=== PATIENT | female | born 1965 | race African-American/Black ===

== ENCOUNTER 2019-03-05 06:43 | Inpatient (IN) ==
[2019-03-05] MEDS ORDERED: CARDIZEM IV ONE (07:08)
[2019-03-05] MEDS ORDERED: NS 1,000 ML IV ONE ×2 (07:11)
[2019-03-05] MEDS ORDERED: OFIRMEV 1000 MG/ISOTONIC SOLN 1,000 MG/100 ML BOTTLE IV ONE (07:13)
[2019-03-05] MEDS ORDERED: LEVAQUIN 750 MG/D5W 750 MG/150 ML IVPB IV ONE (07:13)
[2019-03-05] MEDS ORDERED: VANCOMYCIN 1 GM/NS 1 GM/250 ML IVPB IV ONE (07:13)
--- NOTE | 2019-03-05 07:19 | PROVIDER DOCUMENTATION ---
HPI-Fever - General Chief Complaint: SEPSIS ALERT - D Stated Complaint: fever Time Seen by Provider: 03/05/19 07:00 Source: EMS, assisted records, old records Unable to obtain history due to:: other (aphasia, [place] patient) Allergies/Adverse Reactions: Patient Allergies Allergy/AdvReac Type Severity Reaction Status Date / Time No Known Allergies Allergy Verified 03/05/19 07:23 - History of Present Illness-Fever Nature of Presenting Problem: Sent from [facility] this morning for decreased LOC from baseline and fever of 105 axillary. She has hx of CVA with aphasia/flexion contractures/afib. Of note her palacio catheter has thick, red, cloudy urine with lots of sediment. Fever Severity/Quality: reports: greater than 102 F Onset/Duration: reports: this morning Timing: reports: still present, constant Severity: reports: moderate Context: reports: decreased mental status, from assisted, indwelling palacio, decubitus ulcers Recent Illness?: reports: none Fever Therapy COMEDIAN: Initiated none Cognitive Baseline: poor alertness (mute d/t CVA) Modifying Factors: improves with: nothing Associated Symptoms: reports: diaphoresis, fever/chills, shortness of breath Similar Symptoms Previously?: No - Glascow Coma Score Best Eye Response (Britni): (3) open to voice Best Verbal Response (Britni): (1) no verbal response Best Motor Response (Britni): (2) extension to pain Britni Total: 7 Review of Systems - Adult - REVIEW OF SYSTEMS - ADULT ROS:: ROS per NN only Constitutional: reports: see HPI, fever Eyes: reports: no symptoms reported Ears, Nose, Mouth & Throat: reports: no symptoms reported Cardiovascular: reports: no symptoms reported Respiratory: reports: see HPI, cough, shortness of breath Gastrointestinal: reports: no symptoms reported Genitourinary: reports: see HPI, frequent UTI's, hematuria Musculoskeletal: reports: no symptoms reported Integumentary: reports: skin sores/ulcer Neurological: reports: no symptoms reported Psychiatric: reports: no symptoms reported Endocrine: reports: no symptoms reported Hematologic/Lymphatic: reports: no symptoms reported Allergic/Immunologic: reports: no symptoms reported All Other Systems: Reviewed and Negative Past History - Adult - PAST MEDICAL HISTORY-ADULT Review of Records: reports: Old Records Reviewed (from [place]), Nursing Assessment Review, Medications Reviewed, Social history reviewed & non-contributory. Major Childhood Illnesses: reports: denies history Cardiovascular: reports: A-Fib, CAD, CHF Respiratory: reports: denies history Gastrointestinal: reports: denies history Obstetrical/Gynecological: reports: denies history Genitourinary: reports: denies history Musculoskeletal: reports: denies history Neurological: reports: cognitive dysfunction, CVA, stroke deficits Endocrine/Immune: reports: denies history Other Conditions: reports: denies history - PRIOR SURGERIES/PROCEDURES Surgical/Procedure History: reports: reviewed, not pertinent - IMMUNIZATION STATUS Childhood Immunizations: UTD Flu Vaccine: NUTD - FAMILY HISTORY Family History: reviewed, not pertinent - SOCIAL HISTORY Smoking: non-smoker Substance Use: none/never Alcohol Use Frequency: never Living Situation: care facility Physical Exam-General - PHYSICAL EXAM-ADULT Initial Vital Signs Reviewed: Yes (Febrile, tachycardic, tachypneic, normotensive) - CONSTITUTIONAL General Appearance: mild distress, lethargic - EYES Eyes: PERRL/EOMI, pink conjunctivae - HEAD, EARS, NOSE, MOUTH & THROAT HENMT: normocephalic/atraumatic. negative: moist mucous membranes - NECK Neck: non-tender, supple, normal inspection, limited range of motion - RESPIRATORY Respiratory: chest non-tender, no pleuratic chest pain, no respiratory distress, no accessory muscle use, rhonchi, increased rate - CARDIOVASCULAR Cardiovascular: no gallop, no JVD, tachycardia, systolic murmur, irregularly irregular, PMI displaced laterally. negative: normal peripheral pulses, regular rate, rhythm, no edema - GASTROINTESTINAL (ABDOMEN) Abdominal Exam: normal bowel sounds, non tender, soft, no organomegaly, no pulsatile mass - GENITOURINARY Female Genitalia/Pelvic Exam: other (indwelling palacio catheter red with sediment) - LYMPHATIC Lymphatic: no adenopathy - MUSCULOSKELETAL Back Exam: decreased range of motion, other (flexion contractures legs/arms) Extremity: pedal edema - SKIN Integumentary: normal color, normal turgor, warm/dry - NEUROLOGIC Neurologic: aphasia, other (head turned right, minimally responsive, increased tone) - PSYCHIATRIC Psych/Mental Status: disoriented x 3 Progress - PLAN OF CARE/RESULTS Progress/Plan/Lab Results: Vital Signs - 8 hr 03/05/19 06:53 03/05/19 06:58 03/05/19 07:00 Temperature 104.3 F H Pulse Rate 172 H 158 H Respiratory Rate 25 H 36 H Blood Pressure 124/98 124/98 O2 Sat by Pulse Oximetry 96 96 03/05/19 07:09 03/05/19 07:15 03/05/19 07:18 Temperature Pulse Rate 163 H 163 H 151 H Respiratory Rate 35 H 35 H 35 H Blood Pressure 102/85 95/70 O2 Sat by Pulse Oximetry 96 96 96 03/05/19 07:29 03/05/19 07:30 03/05/19 07:31 Temperature Pulse Rate 153 H 164 H 132 H Respiratory Rate 35 H 35 H 32 H Blood Pressure 100/57 113/67 O2 Sat by Pulse Oximetry 95 95 95 03/05/19 07:32 03/05/19 07:34 03/05/19 07:38 Temperature Pulse Rate 132 H 126 H 133 H Respiratory Rate 36 H 30 H 24 Blood Pressure 98/72 87/61 107/69 O2 Sat by Pulse Oximetry 95 94 L 92 L 03/05/19 07:43 03/05/19 07:44 03/05/19 07:45 Temperature Pulse Rate 127 H 121 H 115 H Respiratory Rate 33 H 35 H 35 H Blood Pressure 110/57 100/78 O2 Sat by Pulse Oximetry 94 L 94 L 94 L 03/05/19 07:48 03/05/19 07:50 03/05/19 08:00 Temperature Pulse Rate 116 H 120 H 120 H Respiratory Rate 32 H 36 H 31 H Blood Pressure 105/65 95/71 99/68 O2 Sat by Pulse Oximetry 94 L 94 L 95 03/05/19 08:01 03/05/19 08:10 03/05/19 08:15 Temperature Pulse Rate 122 H 111 H 118 H Respiratory Rate 32 H 30 H 29 H Blood Pressure 96/68 O2 Sat by Pulse Oximetry 95 95 95 03/05/19 08:20 03/05/19 08:30 03/05/19 08:31 Temperature Pulse Rate 118 H 118 H 121 H Respiratory Rate 27 H 27 H 27 H Blood Pressure 96/65 98/66 O2 Sat by Pulse Oximetry 95 95 96 03/05/19 08:40 03/05/19 08:45 03/05/19 08:50 Temperature Pulse Rate 125 H Respiratory Rate 28 H 28 H 22 Blood Pressure 98/72 94/82 O2 Sat by Pulse Oximetry 96 96 95 03/05/19 09:00 03/05/19 09:01 03/05/19 09:10 Temperature Pulse Rate Respiratory Rate 26 H 25 H 27 H Blood Pressure 105/69 91/71 O2 Sat by Pulse Oximetry 95 96 96 03/05/19 09:15 03/05/19 09:20 03/05/19 09:30 Temperature Pulse Rate Respiratory Rate 27 H 26 H 27 H Blood Pressure 96/64 98/68 O2 Sat by Pulse Oximetry 96 96 95 03/05/19 09:31 03/05/19 09:40 03/05/19 09:45 Temperature Pulse Rate Respiratory Rate 26 H 26 H 29 H Blood Pressure 107/66 O2 Sat by Pulse Oximetry 96 96 96 03/05/19 09:50 03/05/19 10:00 03/05/19 10:01 Temperature Pulse Rate 130 H 125 H 129 H Respiratory Rate 27 H 27 H 25 H Blood Pressure 99/78 94/56 O2 Sat by Pulse Oximetry 96 96 96 03/05/19 07:16 Influenza Screen - Final Nasopharyngeal Laboratory Results - last 24 hr 03/05/19 03/05/19 03/05/19 06:55 06:55 06:55 WBC 10.69 RBC 4.33 Hgb 13.2 Hct 40.9 MCV 94.5 MCH 30.5 MCHC 32.3 L RDW Std Deviation 14.6 H Plt Count 183 MPV 12.2 H Immature Gran % (Auto) 0.4 Neut % (Auto) 58.9 Lymph % (Auto) 32.5 [place] % (Auto) 7.7 Eos % (Auto) 0.1 Baso % (Auto) 0.4 Immature Gran # (Auto) 0.04 Neut # (Auto) 6.31 Lymph # (Auto) 3.47 H [place] # (Auto) 0.82 H Eos # (Auto) 0.01 Baso # (Auto) 0.04 PT 17.1 H INR 1.37 PTT (Actin FS) 28.4 Sodium 131 L Potassium 4.1 Chloride 92 L Carbon Dioxide 24 L Anion Gap 15 BUN 21 Creatinine 0.6 BUN/Creatinine Ratio 35 Glucose 139 H Calculated Osmolality 268 Calcium 8.5 L Magnesium Total Bilirubin 0.88 AST 62 H ALT 27 Alkaline Phosphatase 112 H Creatine Kinase 69 Troponin T Fkf-A-Qupqituvygn Pept Total Protein 6.6 Albumin 3.0 L Globulin 3.6 Albumin/Globulin Ratio 0.8 Plasma Lactate TSH Urine Source Urine Color Urine Turbidity Urine pH Ur Specific Hendricks Urine Protein Ur Glucose (Stick) Ur Ketones (Stick) Urine Blood Urine Nitrite Urine Bilirubin Urobilinogen Dipstick Urine Leukocytes Urine WBC (Auto) Urine RBC (Auto) U Epithel Cells (Auto) Urine Bacteria (Auto) Urine Crystals Small Round Cells Urine Casts Urine Yeast-like Cells 03/05/19 03/05/19 03/05/19 06:55 06:55 06:55 WBC RBC Hgb Hct MCV MCH MCHC RDW Std Deviation Plt Count MPV Immature Gran % (Auto) Neut % (Auto) Lymph % (Auto) [place] % (Auto) Eos % (Auto) Baso % (Auto) Immature Gran # (Auto) Neut # (Auto) Lymph # (Auto) [place] # (Auto) Eos # (Auto) Baso # (Auto) PT INR PTT (Actin FS) Sodium Potassium Chloride Carbon Dioxide Anion Gap BUN Creatinine BUN/Creatinine Ratio Glucose Calculated Osmolality Calcium Magnesium Total Bilirubin AST ALT Alkaline Phosphatase Creatine Kinase Troponin T 0.031 Sph-R-Rvrnswfxfdi Pept 663 H Total Protein Albumin Globulin Albumin/Globulin Ratio Plasma Lactate 1.3 TSH Urine Source Urine Color Urine Turbidity Urine pH Ur Specific Hendricks Urine Protein Ur Glucose (Stick) Ur Ketones (Stick) Urine Blood Urine Nitrite Urine Bilirubin Urobilinogen Dipstick Urine Leukocytes Urine WBC (Auto) Urine RBC (Auto) U Epithel Cells (Auto) Urine Bacteria (Auto) Urine Crystals Small Round Cells Urine Casts Urine Yeast-like Cells 03/05/19 03/05/19 03/05/19 06:55 06:55 07:16 WBC RBC Hgb Hct MCV MCH MCHC RDW Std Deviation Plt Count MPV Immature Gran % (Auto) Neut % (Auto) Lymph % (Auto) [place] % (Auto) Eos % (Auto) Baso % (Auto) Immature Gran # (Auto) Neut # (Auto) Lymph # (Auto) [place] # (Auto) Eos # (Auto) Baso # (Auto) PT INR PTT (Actin FS) Sodium Potassium Chloride Carbon Dioxide Anion Gap BUN Creatinine BUN/Creatinine Ratio Glucose Calculated Osmolality Calcium Magnesium 2.0 Total Bilirubin AST ALT Alkaline Phosphatase Creatine Kinase Troponin T Gsp-M-Yoqighmaqzk Pept Total Protein Albumin Globulin Albumin/Globulin Ratio Plasma Lactate TSH 2.32 Urine Source CLEAN CATCH Urine Color YELLOW Urine Turbidity HAZY Urine pH 6.0 Ur Specific Hendricks 1.042 Urine Protein 50 A Ur Glucose (Stick) NEGATIVE Ur Ketones (Stick) NEGATIVE Urine Blood NEGATIVE Urine Nitrite NEGATIVE Urine Bilirubin NEGATIVE Urobilinogen Dipstick 4 A Urine Leukocytes SMALL A Urine WBC (Auto) 20-40 A Urine RBC (Auto) 10-20 A U Epithel Cells (Auto) <10 Urine Bacteria (Auto) NEGATIVE Urine Crystals NONE SEEN Small Round Cells Not Reportable Urine Casts Not Reportable Urine Yeast-like Cells Not Reportable Orders Category Date Time Status Cardiac Monitoring DIRECTED Care 03/05/19 07:03 Active Palacio Cath Insertion ORDERED Care 03/05/19 07:14 Active IV Insertion ORDERED Care 03/05/19 07:03 Completed Notify MD of + Sepsis Screen NOW Care 03/05/19 07:03 Active Notify Physician As Ordered Care 03/05/19 07:03 Active Sepsis [Notify MD/PA/OG for exam] NOW Care 03/05/19 07:03 Active CHEST-1 VIEW [RAD] Stat Exams 03/05/19 07:03 Completed BLOOD CULTURE [BLDCUL] Stat Lab 03/05/19 07:16 Results CBC WITH DIFF [HEME] Stat Lab 03/05/19 06:55 Completed CK PROFILE [SP CHEM] Stat Lab 03/05/19 06:55 Completed COMPREHENSIVE METABOLIC PANEL [CHEM] Stat Lab 03/05/19 06:55 Completed INFLUENZA SCREEN A/B Stat Lab 03/05/19 07:16 Completed LACTATE, PLASMA [CHEM] Lab 03/05/19 10:20 Ordered LACTATE, PLASMA [CHEM] Lab 03/05/19 13:15 Uncollected LACTATE, PLASMA [CHEM] Q3H Lab 03/05/19 06:55 Completed MAGNESIUM [CHEM] Stat Lab 03/05/19 06:55 Completed PRO B-NATRIURETIC PEPTIDE Stat Lab 03/05/19 06:55 Completed PROTIME WITH INR [COAG] Stat Lab 03/05/19 06:55 Completed PTT [COAG] Stat Lab 03/05/19 06:55 Completed TROPONIN T Stat Lab 03/05/19 06:55 Completed TSH Stat Lab 03/05/19 06:55 Completed URINALYSIS W/POSS RFLX CULT [URINALYSIS] Stat Lab 03/05/19 07:16 Completed URINE CULTURE [RM] Routine Lab 03/05/19 09:00 Received URINE MANUAL MICROSCOPIC [URINALYSIS] Stat Lab 03/05/19 07:16 Completed 0.9% Sodium Chloride Inj [Ns] 1,000 ml Med 03/05/19 07:08 Discontinued IV 999 mls/hr 0.9% Sodium Chloride Inj [Ns] 1,000 ml Med 03/05/19 07:11 Discontinued IV 999 mls/hr 0.9% Sodium Chloride Inj [Ns] 1,000 ml Med 03/05/19 07:11 Discontinued IV 999 mls/hr Acetaminophen [Ofirmev 1000 mg/Isotonic Soln] Med 03/05/19 07:13 Discontinued 1,000 mg in 100 ml IV ONCE Diltiazem [Cardizem] Med 03/05/19 07:08 Discontinued 25 mg IV NOW ONE Levofloxacin 750 mg/D5w [Levaquin 750 mg/D5w] Med 03/05/19 07:13 Discontinued 750 mg in 150 ml IV NOW Piperacillin/Tazobactam [Zosyn] 4.5 gm Med 03/05/19 08:00 Discontinued 0.9% Sodium Chloride Inj [Ns] 100 ml IV NOW Vancomycin 1 gm/Ns Med 03/05/19 07:13 Discontinued 1 gm in 250 ml IV NOW Oxygen Device Stat Oth 03/05/19 07:03 Active EKG [EKG] Stat Ther 03/05/19 07:01 Draft Result Diagrams: 03/05/19 06:55 03/05/19 06:55 - REASSESSMENT Reassessment #1 Time Reassessed: 10:18 Status: improving (Given IVF bolus, 30ml/kg, IV Vanc/zosyn/levaquin) - EKG 1 Time of EKG reading by physician:: 07:10 EKG Read and Signed by:: Wale Jones EKG Interpretation (*Must complete 3 of following elements*): Abnormal Rate: 164 Rhythm: Afib with RVR [place]: left QRS: Q Waves present, poor R wave progression ST Wave: non-specific ST changes - XRAY 1 XRAY Study: Chest Impression: Abnormal, See EMR Report (EXAM: CHEST-1 VIEW INDICATION: sepsis TECHNIQUE: One view COMPARISON: One view FINDINGS: Inspiration is suboptimal. There is likely mild atelectasis at the medial right lung base. The lungs are grossly clear, otherwise. There is no discrete pleural fluid collection or pneumothorax. The cardiomediastinal silhouette and central vasculature are grossly unremarkable. IMPRESSION: Low lung volumes and suggestion of mild right basilar atelectasis. Electronically signed by Michael Garcia 03/05/2019 7:25 AM 03/05/19 0725 Interpreting Physician: Michael Garcia MD Dictated Date/Time: 03/05/19 0723 cc: Wale Jones MD; Noah Young MD) - CONSULTS/PCP/HOSPITALIST Notification #1 *Consult/PCP/Hospitalist*: Hospitalist paged for admission at 1015 Time Discussed: 10:20 (Dottie) Consult Disposition: Admit Departure - Departure Date of Disposition Decision: 03/05/19 Time of Disposition Decision: 10:26 DIAGNOSIS: Complicated UTI (urinary tract infection) Sepsis without acute organ dysfunction Qualifiers: Sepsis type: sepsis due to unspecified organism Qualified Code(s): A41.9 - Sepsis, unspecified organism Right lower lobe pneumonia Qualifiers: Pneumonia type: due to unspecified organism Qualified Code(s): J18.1 - Lobar pneumonia, unspecified organism Disposition: ADMITTED INPATIENT 09 Certified Medical Emergency: Emergent Condition: Serious Referrals and Follow-Ups: Noah Young MD [Primary Care Provider] - - Critical Care Note This patient required my direct & personal management of CC.: Yes Total Time (mins): 35 Critical Care Statement: This patient required my direct personal management to treat or rule out processes, the absence of which, could potentiallly result in sudden, clinically significant life or limb threatening deterioration. Attestation - Physician/ [place] Attestation Patient care was provided by Advanced Practice Provider:: No The physician spent face to face time with patient:: Yes Advanced Practice Provider documentation review:: Supervising physician onsite and consulted in the evaluation and care of this patient. The physician did have a face to face encounter with the patient.
[2019-03-05] MEDS: NS 1,000 ML IV ONE ×2 (07:20→07:55)
--- NOTE | 2019-03-05 07:27 | Diag Imaging Result Doc PS360 ---
EXAM: CHEST-1 VIEW INDICATION: sepsis TECHNIQUE: One view COMPARISON: One view FINDINGS: Inspiration is suboptimal. There is likely mild atelectasis at the medial right lung base. The lungs are grossly clear, otherwise. There is no discrete pleural fluid collection or pneumothorax. The cardiomediastinal silhouette and central vasculature are grossly unremarkable. IMPRESSION: Low lung volumes and suggestion of mild right basilar atelectasis. Electronically signed by Michael Garcia 03/05/2019 7:25 AM
[2019-03-05 07:41] LABS: BASO# 0.04 X1000 (0.0-0.2); BASO% 0.4 % (0.0-0.8); EOS# 0.01 X1000 (0.0-0.7); EOS% 0.1 % (0.0-10.0); HEMATOCRIT 40.9 % (37.0-47.0); HEMOGLOBIN 13.2 g/dL (12.0-16.0); IMM GRAN# 0.04 X1000 (0.0-0.04); IMM GRAN% 0.4 % (0.0-0.5); LYMPH# 3.47 X1000 (1.2-3.4); LYMPH% 32.5 % (20.5-51.1); MCH 30.5 PG (27-31); MCHC 32.3 g/dL (33-37); MCV 94.5 FL (81-99); MONO# 0.82 X1000 (0.11-0.59); MONO% 7.7 % (1.7-9.3); MPV 12.2 FL (7.4-10.4); NEUT# 6.31 X1000 (1.4-6.5); NEUT% 58.9 % (42.2-75.2); PLT 183 X1000 (130-400); RBC 4.33 XMIL (4.2-5.4); RDW 14.6 % (11.5-14.5); WBC 10.69 X1000 (4.8-10.8)
[2019-03-05 07:42] LABS: URINE SOURCE CLEAN CATCH
[2019-03-05 07:47] LABS: INR 1.37; PROTIME 17.1 Seconds (11.0-16.0); PTT 28.4 Seconds (22.3-41.8)
[2019-03-05 07:48] LABS: BILIRUBIN URINE NEGATIVE (NEGATIVE); BLOOD URINE NEGATIVE (NEGATIVE); COLOR YELLOW; GLUCOSE URINE NEGATIVE (NEGATIVE); KETONE URINE NEGATIVE (NEGATIVE); LEUKOCYTES URINE SMALL (NEGATIVE); NITRITE URINE NEGATIVE (NEGATIVE); PROTEIN URINE 50 mg/dL (NEGATIVE); SP GRAVITY URINE 1.042; TURBIDITY URINE HAZY (CLEAR); UROBILINOGEN URINE 4 mg/dL (NORMAL)
[2019-03-05 07:56] LABS: UR EPITHELIAL CELLS <10 /HPF (<10); URINE BACTERIA NEGATIVE /HPF; URINE WBC 20-40 /HPF (<10)
[2019-03-05 08:00] LABS: URINE CRYSTALS NONE SEEN
[2019-03-05] MEDS ORDERED: ZOSYN 4.5 GM in NS 100 ML IV ONE (08:00)
--- NOTE | 2019-03-05 08:00 | EKG Report ---
Test Performed on : 03/05/2019 07:04:54 AM Test Reason : sepsis Blood Pressure : / mmHG Vent. Rate : 164 BPM Atrial Rate : 113 BPM P-R Int : 000 ms QRS Dur : 072 ms QT Int : 256 ms P-R-T Axes : 000 -05 124 degrees QTc Int : 422 ms Atrial fibrillation. with rapid ventricular response. Inferior infarct , age undetermined Anterolateral infarct , age undetermined Abnormal ECG No previous ECGs available Unconfirmed Result
[2019-03-05 08:35] LABS: AGAP 15; ALB/GLOB RATIO 0.8; ALKALINE PHOSPHATASE 112 U/L (32-104); BUN 21 mg/dL (8-22); CALCIUM 8.5 mg/dL (8.8-10.2); CHLORIDE 92 mmol/L (98-107); CK PROFILE 69 U/L (24-173); COSMO 268; CREATININE 0.6 mg/dL (0.5-0.9); GLUCOSE 139 mg/dL (70-104); GOT 62 U/L (10-30); GPT 27 U/L (10-36); POTASSIUM 4.1 mmol/L (3.5-5.1); SODIUM 131 mmol/L (136-145); TCO2 24 mmol/L (25-35); TOTAL BILIRUBIN 0.88 mg/dL (0.20-1.00); TOTAL PROTEIN 6.6 g/dL (6.3-8.3)
[2019-03-05] MEDS ORDERED: DULCOLAX GT PRN (11:00)
[2019-03-05] MEDS ORDERED: VANCOMYCIN IV PER PHARMACY MISC SCH (11:00)
[2019-03-05] MEDS ORDERED: OFIRMEV 1000 MG/ISOTONIC SOLN 1,000 MG/100 ML BOTTLE IV PRN (11:00)
[2019-03-05] MEDS ORDERED: ZOFRAN IV PRN (11:00)
[2019-03-05] MEDS ORDERED: NEO-SYNEPHRINE 50 MG in NS 250 ML IV SCH (11:45)
--- NOTE | 2019-03-05 13:06 | Diag Imaging Result Doc PS360 ---
CT HEAD W/O CONTRAST - 03/05/2019 INDICATION: AMS pervious cvas COMPARISON: None FINDINGS: The ventricles and sulci are normal in size and contour. No intracranial mass or hemorrhage. The skull is intact. There is mild right-sided sinusitis. IMPRESSION: Sinusitis. Otherwise negative. This exam was performed using automated exposure control, adjustment of mA or kV according to patient size, and/or use of iterative reconstruction technique Electronically signed by Jimmy Cote 03/05/2019 1:04 PM
--- NOTE | 2019-03-05 13:09 | Diag Imaging Result Doc PS360 ---
CT THORAX/ABD/PELVIS W/CON - 03/05/2019 INDICATION: sepsis source COMPARISON: None FINDINGS: CHEST: There is some mild infiltrate in the right lower lobe. No adenopathy. Heart size is normal. No pericardial effusion. No pleural effusions. There are moderate degenerative changes of the spine. No acute or suspicious bony lesion. Abdomen pelvis: There is a G-tube in good position in the stomach. There is a small cyst in the anterior superior pole of the spleen measuring less than a centimeter. Otherwise, all abdominal organs are normal. There is moderate constipation. No bowel obstruction or inflammation. Hernandez catheter in the urinary bladder. There is probably a small benign fibroid in the uterus. The rectum is normal. There is some ill-defined density in the subcutaneous fat at the right side of the pannus. This likely indicates a previous area of inflammation or surgical scarring. There are moderate degenerative changes of the spine. No acute or suspicious bony lesion. IMPRESSION: 1. Mild right lower lobe infiltrate. Pneumonia or aspiration cannot be excluded. 2. Constipation. 3. Otherwise no acute process. This exam was performed using automated exposure control, adjustment of mA or kV according to patient size, and/or use of iterative reconstruction technique Electronically signed by Jimmy Cote 03/05/2019 1:07 PM
[2019-03-05] MEDS: CARDIZEM 100 MG/NS 100 MG/100 ML IVPB IV SCH ×2 (13:46→21:08)
[2019-03-05] MEDS: MAXIPIME 1 GM in NS 50 ML IV SCH (15:38)
[2019-03-05] MEDS: NS 1,000 ML IV SCH (15:38)
--- NOTE | 2019-03-05 16:19 | HISTORY AND PHYSICAL ---
CHIEF COMPLAINT: Fever. Her rehab facility for family altered mental status. HISTORY OF PRESENT ILLNESS: Ms. Rich is an unfortunate 53-year-old female, who carries a past medical history of an ischemic CVA in September 2018. She was found to have atrial fibrillation and was put on Xarelto and aspirin and, in December 2018, she had an intracerebral hemorrhage, was taken off her anticoagulants, and in mid January 2019, the patient went to [facility] for evaluation for urinary tract infection, was placed on antibiotic, went home with home health. In the interim on 02/11/2019, the patient was brought to [facility] ER with complaints of right-sided weakness, slurred speech and confusion, and was found to have a subacute infarct in the left stacey ventricle white matter and with atrial fibrillation with rapid ventricular response, and suffered a right medullary CVA as well in September of 2018. After her last stroke, she became aphasic and had dysphagia with a G-tube in place. She is bed-bound and was sent to rehab at [facility]. She does have bedsores present on arrival. Per family's report, they did report that she was placed back on anticoagulation. They believe she was on Eliquis and was supposed to be transitioned over to Coumadin until she could get in with Dr. Schrader at [facility] for a Watchman procedure. Family reports last week she was running a fever as well. She reports that they did some studies there. Nothing was really found and they called her again today and stated that she was running a high-grade fever, so she was brought into the ED. Initial chest x-ray just shows some atelectasis. Urinalysis just showed some leukocytes. She did not have an elevated white count. OTHER PAST MEDICAL HISTORY: Atrial fibrillation, iron deficiency anemia, congestive heart failure, hypertension, morbid obesity, sleep apnea obstructive, diabetes mellitus type 2, asthma. Upon evaluation in the ED, she was found to be in atrial fibrillation with RVR. She was given a dose of Cardizem which brought her rate down. However, the patient went back into high rate atrial fibrillation and became hypotensive. She was initiated on Tung-Synephrine and placed on a Cardizem drip. We will place her in the ICU and we will check a CT of the head, chest, abdomen and pelvis as well. We have started her on broad-spectrum antibiotics given her temperature was a 104 degrees. We will consult Dietary to continue with any G-tube feedings, as well as consult Cardiology and check a recent echocardiogram. PAST MEDICAL HISTORY: 1. Hemorrhagic CVA. 2. Ischemic CVA x2, all within this year. 3. Atrial fibrillation on anticoagulation with Eliquis that was cleared by Cardiology and Neurology. 4. Iron deficiency anemia. 5. Congestive heart failure. 6. Hypertension. 7. Morbid obesity. 8. Sleep apnea. 9. Diabetes mellitus type 2. 10. Asthma. 11. Dysphagia, secondary to CVA. 12. Bed-bound, secondary to CVA. 13. Pressure ulcers per family report present on arrival. SOCIAL HISTORY: She is at rehab currently at [facility]. She is complete total care. Daughter and mother at bedside wish for her to be a full code. She is single, disabled. PAST SURGICAL HISTORY: 1. x2. 2. Hernia repair x2. 3. Gallbladder. 4. Appendectomy. FAMILY HISTORY: Father with coronary artery disease. Brother with coronary artery disease. ALLERGIES: No known drug allergies. HOME MEDICATIONS: 1. Tylenol 8 hour 2 tabs G-tube q. 8 hours p.r.n. 2. Tylenol 2 caps G-tube q. 4 hours p.r.n. 3. Albuterol nebulizer 3 mL inhaled q. 4 hours p.r.n. 4. Eliquis 1 tab G-tube b.i.d. 5. Lipitor 1 tab G-tube at bedtime. 6. Erythromycin 12 mL G-tube daily. 7. Dulcolax 1 tab G-tube p.r.n. 8. Rocephin 1 g IM daily. 9. Digoxin 1 tab G-tube daily. 10. Colace 1 cap G-tube b.i.d. 11. Lasix 1 tab G-tube daily. 12. Lactobacillus 1 tab G-tube daily. 13. Citrate of magnesium 10 ounce G-tube p.r.n. REVIEW OF SYSTEMS: Hard to obtain secondary to patient's condition. She is not awake, alert. She does not follow commands. PHYSICAL EXAMINATION: VITAL SIGNS: Initial temperature I believe rectal was 104.3, initial heart rate was 176, temperature is now 100.2, heart rate is 127, respirations 24, blood pressure 94/61, O2 is 97%. GENERAL: Ms. Rich is a 53-year-old female, who is lying on the stretcher, who does not really respond to anything, in no acute distress. HEENT: Atraumatic, normocephalic. Pupils were reactive, but seem sluggish. I could not tell if there was any facial drooping as the patient's head was tilted to the right, and there was some obvious drooling. She does have towels placed under her chin, as well as under her shoulder to catch her drooling. CV: Irregularly irregular. No obvious murmurs, gallops, or rubs. RESPIRATORY: Lung sounds decreased airway entry throughout all lung barraza. No rales, rhonchi, or wheezes appreciated. GI: Obese, soft. Appeared to be nontender, nondistended. Did have a G-tube to the left upper quadrant. SKIN: Warm and dry. I could not assess her sacral area at this time. Did ask nursing to document her wounds. GENITOURINARY: Hernandez draining clear urine with sediment. NEUROLOGIC: Unable to assess. DIAGNOSTIC DATA: Currently pending head, chest, abdomen and pelvis CT. Chest x-ray showed low lung volumes suggestive of a mid right basilar atelectasis. EKG: Atrial fibrillation with RVR at 164 beats per minute. LABORATORY DATA: White count was 10, hemoglobin and hematocrit 13 and 40, platelet count is 183. Sodium 131, potassium 4.1. BUN 21, creatinine 0.6, blood glucose is 139, magnesium was 2. Troponin 0.031. ProBNP 663, albumin 3, TSH 2.32. ASSESSMENT AND PLAN: 1. Sepsis. The patient came in with a high-grade rectal temperature at 104 degrees. We are currently pending a CT of the chest, abdomen and pelvis. She was on antibiotics from the snf from spiking fevers last week. She does have a Hernandez catheter in place. She was given 2 liters of intravenous fluid. We will continue with broad- spectrum antibiotics and await those results, as well as blood cultures. 2. Previous hemorrhagic and 2 ischemic strokes. The patient had an ischemic stroke, was placed on anticoagulation, had a hemorrhagic stroke, taken off her anticoagulation, and in the interim had another ischemic stroke and was waiting to have a Watchman procedure done. Per Neurology and Cardiology, she is to be on low-dose Eliquis until she can be evaluated by Cardiology for her procedure. The patient is aphasic, dysphasic, bed-bound and complete total care with a G-tube, and we will consult Dietary for tube feed. 3. Atrial fibrillation with rapid ventricular response, currently on a Cardizem drip. We will consult Cardiology. Check a thyroid stimulating hormone, echocardiogram. Monitor closely in intensive care unit. 4. Diabetes mellitus. We will place her on pattern blood sugars. 5. Congestive heart failure. Aware. 6. Hypertension. Continue on the current medications. 7. Iron deficiency anemia. Stable. 8. Obstructive sleep apnea. Aware. 9. Further recommendation to follow physician evaluation, laboratory and diagnostic data. 10. The patient is a full code. Dictated by OG Cosby for Cassie Moise MD cc: Cassie Moise MD I performed a face to face encounter on the patient. I reviewed all labs and imaging on the patient. I agree with the H&P as dictated. is a 53 year old female with a history of multiple medical problems who presented to the ER with sepsis. On exam, the patient is confused and lethargic. Her extremities are cool to touch. The lungs sounds are coarse bilaterally. Will admit the patient with a diagnosis of sepsis as dictated above. LEONILA
[2019-03-05] MEDS: SANTYL OINT TOP SCH (18:20)
[2019-03-05] MEDS: COLACE LIQUID GT SCH (21:07)
[2019-03-05] MEDS: ELIQUIS GT SCH (21:07)
[2019-03-05] MEDS: MIRALAX GT SCH (21:07)
[2019-03-05] MEDS: LIPITOR GT SCH (21:07)
[2019-03-05] MEDS: ZYVOX 600 MG/D5W 600 MG/300 ML IVPB IV SCH (21:07)
--- NOTE | 2019-03-05 21:52 | GENERAL SURGERY CONSULTATION ---
DATE: 03/05/2019 REASON FOR CONSULTATION: Decubitus wound. CHIEF COMPLAINT: Fever and mental status. HISTORY OF PRESENT ILLNESS: This is a 53-year-old female who had a CVA in September of this year, felt to be related to atrial fibrillation. She also had an intracerebral hemorrhage related to her anticoagulation. She has had a complicated course. She has had a feeding tube placed, Hernandez catheter. She has had urinary tract infections, and she is in rehab at [facility] and is complete bedbound. Apparently there was worsening mental status, fevers, and she was transferred to the ER, and a decubitus wound just left to midline on her sacrum was noted. I was consulted for this. Apparently the timeframe of this is unclear, and her history is overall obtained per the medical record. MEDICAL HISTORY: Recent CVA initially ischemic and then with hemorrhagic conversion, atrial fibrillation, anemia, heart failure, hypertension, morbid obesity, sleep apnea, diabetes, asthma, dysphagia requiring G-tube, profound immobility. SURGICAL HISTORY: She has at least had a gastrostomy tube, section, hernia repair, gallbladder, appendectomy. FAMILY HISTORY: Reviewed and significant for coronary disease. MEDICATIONS: Significant for Eliquis, digoxin. REVIEW OF SYSTEMS: Unobtainable. PHYSICAL EXAMINATION: Vital signs: She is in the ICU. She has had some temperature initially at 104.3, down to 100.3 on arrival but is afebrile currently. Pulse 92, blood pressure 100/69, oxygen saturation 96% on room air. General: She is nonverbal. She does appear alert. HEENT: I do not see any scleral icterus. Cardiovascular: Normal rate. Pulmonary: No increased work of breathing. She is on nasal cannula. Abdomen: Profoundly obese, is soft, nontender. Gastrostomy tube is in place with no signs of infection. Neurologic: She does have what appears to be contractures, not really any spontaneous movements other than some audible noises. Peripheral vascular: No lower extremity edema, and they are warm. Musculoskeletal: She has a several centimeter decubitus wound with no significant necrosis and appears clean with no purulence and just left of midline over her sacrum. LABORATORY DATA: White count 10, hematocrit 40, platelets 183,000. INR is 1.37. Creatinine 0.6. Troponins are 0.31. Lactate is 1.0. Urinalysis does show leukocytes. IMAGING: I reviewed her CT scan of the abdomen and pelvis. This shows a right lower lobe infiltrate, constipation. Head CT shows sinusitis, but otherwise negative. ASSESSMENT AND PLAN: This is a 53-year-old female who appears to have a pneumonia, urinary tract infection with indwelling Hernandez and gastrostomy tube, multiple medical issues. She does have a decubitus wound. It is clean. I do not see any purulence or necrosis here and suspect that with enzymatic debridement offloading that we can improve this with optimization of nutrition. I recommend Santyl, Mepilex border dressing. I discussed this with the nurse, and we will follow along but no plans for surgical intervention at this time. cc: Lesia Kingsley MD
[2019-03-06] MEDS: NS 1,000 ML IV SCH ×3 (01:35→14:46)
[2019-03-06] MEDS: MAXIPIME 1 GM in NS 50 ML IV SCH ×2 (03:57→15:55)
--- NOTE | 2019-03-06 06:00 | EKG Report ---
Test Performed on : 03/06/2019 05:14:57 AM Test Reason : afib Blood Pressure : / mmHG Vent. Rate : 078 BPM Atrial Rate : 113 BPM P-R Int : 000 ms QRS Dur : 088 ms QT Int : 350 ms P-R-T Axes : 000 004 013 degrees QTc Int : 399 ms Atrial fibrillation. Low voltage QRS Cannot rule out Inferior infarct (cited on or before 05-MAR-2019) Abnormal ECG When compared with ECG of 05-MAR-2019 07:04, (Unconfirmed) Vent. rate has decreased BY 86 BPM Criteria for Anterior infarct are no longer present Criteria for Anterolateral infarct are no longer present Nonspecific T wave abnormality now evident in Anterior leads Confirmed by Raciel BELTRAN, P.J.M ([id number]) on 03/10/2019 7:54:23 PM
[2019-03-06 06:40] LABS: BASO# 0.02 X1000 (0.0-0.2); BASO% 0.2 % (0.0-0.8); EOS# 0.13 X1000 (0.0-0.7); EOS% 1.6 % (0.0-10.0); HEMOGLOBIN 9.7 g/dL (12.0-16.0); LYMPH# 1.08 X1000 (1.2-3.4); MCH 29.9 PG (27-31); MCHC 31.3 g/dL (33-37); MCV 95.7 FL (81-99); MONO# 0.33 X1000 (0.11-0.59); MPV 11.5 FL (7.4-10.4); NEUT# 6.77 X1000 (1.4-6.5); NEUT% 81.2 % (42.2-75.2); PLT 134 X1000 (130-400); RBC 3.24 XMIL (4.2-5.4); RDW 14.6 % (11.5-14.5); WBC 8.33 X1000 (4.8-10.8)
[2019-03-06 07:10] LABS: AGAP 12; ALB/GLOB RATIO 0.7; ALBUMIN 2.3 g/dL (3.5-5.0); ALKALINE PHOSPHATASE 86 U/L (32-104); BUN 16 mg/dL (8-22); CALCIUM 8.4 mg/dL (8.8-10.2); CHLORIDE 102 mmol/L (98-107); COSMO 274; CREATININE 0.3 mg/dL (0.5-0.9); ESTIMATED GFR > 60; GLUCOSE 114 mg/dL (70-104); GOT 47 U/L (10-30); GPT 24 U/L (10-36); MAGNESIUM 1.8 mg/dL (1.5-2.7); POTASSIUM 3.2 mmol/L (3.5-5.1); SODIUM 136 mmol/L (136-145); TCO2 22 mmol/L (25-35); TOTAL BILIRUBIN 0.61 mg/dL (0.20-1.00); TOTAL PROTEIN 5.4 g/dL (6.3-8.3)
[2019-03-06 07:15] LABS: HEMOGLOBIN A1C 4.9 % (4.8-6.0)
[2019-03-06] MEDS ORDERED: POTASSIUM CHLORIDE 20% LIQUID GT ONE (07:20)
[2019-03-06] MEDS: MIRALAX GT SCH ×2 (08:22→20:27)
[2019-03-06] MEDS: ELIQUIS GT SCH ×2 (08:22→20:27)
[2019-03-06] MEDS: COLACE LIQUID GT SCH ×2 (08:22→20:28)
[2019-03-06] MEDS: CULTURELLE GT SCH (08:22)
[2019-03-06] MEDS: LANOXIN GT SCH (08:22)
[2019-03-06] MEDS: ZYVOX 600 MG/D5W 600 MG/300 ML IVPB IV SCH ×2 (08:22→20:27)
[2019-03-06] MEDS: SANTYL OINT TOP SCH (08:26)
[2019-03-06] MEDS ORDERED: LACTULOSE GT SCH (09:00)
--- NOTE | 2019-03-06 12:17 | ECHO REPORT ---
ORDER DATE: 03/05/2019 INTERPRETING PHYSICIAN: Dr. Pratik Arenas ECHOCARDIOGRAPHIC MEASUREMENTS: 1. Interventricular septum: 0.8 cm. 2. Posterior wall: 0.8 cm. 3. Diastolic diameter: 5.1 cm. 4. Left atrium: 4.4 cm. 5. Aortic root: 3.3 cm. SUMMARY OF THE 2-DIMENSIONAL IMAGIN. Technically suboptimal study. Poor acoustic window. Normal left ventricular cavity size. Estimated ejection fraction of 50 to 55 percent. 2. Endocardium not well visualized in all views. 3. There is left atrial enlargement. 4. Aortic valve leaflets are trileaflet. 5. Mitral valve was normal. 6. Tricuspid valve was normal. 7. There is mild to moderate tricuspid regurgitation. Peak velocity across the tricuspid valve was 2.9 m/sec. 8. Pulmonary artery systolic pressure of 43 to 48 mmHg. 9. There is mild mitral regurgitation. 10. Mild pulmonary regurgitation. 11. Peak velocity across the aortic valve less than 2%. There is no aortic stenosis or regurgitation. 12. Atrial fibrillation noted. 13. There is no pericardial effusion or obvious intracardiac mass or thrombus seen. cc: Pratik Arenas MD
[2019-03-06] MEDS: CARDIZEM PO SCH ×2 (15:57→20:27)
--- NOTE | 2019-03-06 16:09 | CARDIOLOGY CONSULTATION ---
DATE: 03/06/2019 REASON FOR CONSULTATION: Cardiology was consulted for chronic atrial fibrillation with rapid ventricular rate. HISTORY OF PRESENT ILLNESS: The patient was started on a Cardizem drip. The patient was transferred here given increasing temperature. Ms. Rich is a 55-year-old lady with past medical history of ischemic CVA on October 17. She was noted to have atrial fibrillation. She was put on anticoagulation therapy, and she also has had intracerebral hemorrhage, was taken off her anticoagulation. In mid 2018 patient went to [facility] for evaluation for a UTI, was on antibiotics and went home with home health. In the interim 02/11/2019, the patient was brought to the [facility] ER with complaints of right-sided weakness, slurred speech and confusion, and was found to have subacute infarct with left periventricular white matter with atrial fibrillation rapid ventricular rate. She suffered right medullary CVA as well in September 2018. After her last stroke she became aphasic, had dysphagia with G-tube. Per patient's family report she was on Eliquis and was transferred running a fever of 104, transferred to [facility]. Urinalysis showed leukocytosis. She did not have elevated white count. History was obtained from the chart. PAST MEDICAL HISTORY: 1. Chronic atrial fibrillation. 2. Iron deficiency anemia. 3. History of heart failure. 4. Hypertension. 5. Obesity. 6. Obstructive sleep apnea. 7. CVA x2 this year. 8. Atrial fibrillation on anticoagulation with Eliquis. 9. Hypertension. 10. Asthma. 11. Dysphagia secondary to CVA. 12. Bed-bound, secondary to CVA. 13. Pressure sores. 14. PEG tube placement. She is in [facility]. OTHER SURGERIES: 1. Gallbladder. 2. Cholecystectomy. 3. Hernia repair. 4. . 5. Appendectomy. HOME MEDICATION: Digoxin via NG tube. Rocephin via NG tube. Lipitor. Eliquis 2.5 b.i.d. Magnesium citrate. PHYSICAL EXAMINATION: Vital Signs: Blood pressure 94/61. Temperature 104 degrees. Cardiovascular System: Jugular sinus pressure was normal. First and second heart sounds present. There was no S3 gallop. Respiratory System: Decreased air entry. Abdomen: Soft. Central nervous system: Nonverbal. Unable to assess. LABORATORY EXAMINATION: WBC 8.3, hemoglobin 9.7, hematocrit 31 platelet count of 134. Sodium 136, potassium 3.2 and 4.1 when she came in. BUN 16, creatinine 0.3. ASSESSMENT AND PLAN: 1. Ms. Dottie Rich is a 53-year-old -[place] lady with history of hypertension, chronic atrial fibrillation, multiple strokes this year, is bed-bound, aphasic, felt pressure sores. Was noted to have elevated temperature, was brought to the emergency room and admitted. She was noted to have atrial fibrillation with rapid ventricular rate. Currently, she is on minimal dose of intravenous Cardizem. We will discontinue the Cardizem drip and put her on oral Cardizem 30 mg 3 times a day via percutaneous endoscopic gastrostomy tube in addition to her Lanoxin. 2. Continue with anticoagulation therapy. Previous hemorrhagic and ischemic strokes. Was evaluated for Watchman procedure. She is on low-dose Eliquis. This was done at [facility], as well as [facility]. I have not made any changes as far as anticoagulation therapy is concerned. 3. History of hypertension. Currently she is normotensive probably secondary to likely sepsis infection and Cardizem drip, which we will discontinue. 4. So far blood cultures revealed gram positive cocci. She is currently on linezolid and cefepime; I have not made any changes. Thank you for the consult. We will follow hospital course. cc: Pratik Arenas MD
[2019-03-06 16:41] LABS: AGAP 13; ALBUMIN 2.2 g/dL (3.5-5.0); BUN 15 mg/dL (8-22); CALCIUM 8.7 mg/dL (8.8-10.2); CHLORIDE 103 mmol/L (98-107); COSMO 267; CREATININE 0.3 mg/dL (0.5-0.9); ESTIMATED GFR > 60; GLUCOSE 120 mg/dL (70-104); PHOSPHORUS 2.2 mg/dL (2.7-4.5); POTASSIUM 4.4 mmol/L (3.5-5.1); SODIUM 132 mmol/L (136-145); TCO2 16 mmol/L (25-35)
--- NOTE | 2019-03-06 17:01 | Diag Imaging Result Doc PS360 ---
CHEST-1 VIEW - 03/06/2019 INDICATION: dyspnea COMPARISON: 03/05/2019 FINDINGS: Stable critically low lung volumes. Stable hazy infiltrate or atelectasis at the right lung base. No new infiltrates. Heart size is normal. IMPRESSION: No change from prior. Electronically signed by Jimmy Cote 03/06/2019 4:58 PM
[2019-03-06] MEDS ORDERED: SODIUM PHOSPHATE 30 MMOL in NS 250 ML IV ONE (17:15)
[2019-03-06] MEDS ORDERED: LASIX IV ONE (17:18)
--- NOTE | 2019-03-06 20:03 | PROGRESS NOTE ---
DATE: 03/06/2019 SUBJECTIVE: The patient is resting comfortably in bed. No acute events noted overnight. The patient is currently on a Cardizem drip. OBJECTIVE: Vital signs: Temperature 97.3 degrees, blood pressure 95/63, heart rate 78, respirations 16, O2 saturation 100% on room air. General: This is a morbidly obese female lying in bed, in no acute distress. Heart: S1, S2 normal. Irregularly irregular rhythm. Lungs: Coarse breath sounds bilaterally. Neurologic: The patient is awake, but unable to move her arms or legs. LABORATORY DATA: White blood cell count 8.3, hemoglobin 9.7, hematocrit 31, platelets 134,000. Sodium 132, potassium 4.4, chloride 103, CO2 is 16, BUN 15, creatinine 0.3, glucose 120, phosphorus 2.2. ASSESSMENT AND PLAN: 1. Right lower lobe pneumonia. Continue with broad-spectrum antibiotics, supplemental oxygen and bronchodilator therapy. The cultures are currently pending. 2. Atrial fibrillation. The patient has been transitioned to Cardizem via the gastrostomy tube. We will monitor the patient's response. Continue on Eliquis. 3. Morbid obesity. Aware. 4. History of stroke. Aware. 5. Constipation. Continue with laxative therapy. 6. Obstructive sleep apnea. Aware. 7. Sacral decubitus wound. Continue with wound care. 8. Deep vein thrombosis prophylaxis. The patient is on eliquis. cc: Cassie Moise MD [facility]
[2019-03-06] MEDS: LIPITOR GT SCH (20:27)
[2019-03-07] MEDS: NORCO-5 GT PRN (00:17)
[2019-03-07] MEDS: NS 1,000 ML IV SCH ×2 (00:18→11:21)
[2019-03-07] MEDS ORDERED: MAXIPIME 2 GM in NS 100 ML IV SCH (04:00)
[2019-03-07 06:04] LABS: BASO# 0.01 X1000 (0.0-0.2); BASO% 0.1 % (0.0-0.8); EOS# 0.25 X1000 (0.0-0.7); EOS% 3.2 % (0.0-10.0); HEMATOCRIT 28.3 % (37.0-47.0); HEMOGLOBIN 8.8 g/dL (12.0-16.0); IMM GRAN# 0.02 X1000 (0.0-0.04); IMM GRAN% 0.3 % (0.0-0.5); LYMPH# 1.88 X1000 (1.2-3.4); LYMPH% 23.8 % (20.5-51.1); MCHC 31.1 g/dL (33-37); MCV 96.6 FL (81-99); MONO# 0.44 X1000 (0.11-0.59); MONO% 5.6 % (1.7-9.3); MPV 12.3 FL (7.4-10.4); NEUT# 5.29 X1000 (1.4-6.5); PLT 132 X1000 (130-400); RBC 2.93 XMIL (4.2-5.4); RDW 14.8 % (11.5-14.5); WBC 7.89 X1000 (4.8-10.8)
[2019-03-07 06:18] LABS: AGAP 12; BUN 16 mg/dL (8-22); CALCIUM 8.4 mg/dL (8.8-10.2); CHLORIDE 105 mmol/L (98-107); COSMO 278; CREATININE 0.5 mg/dL (0.5-0.9); ESTIMATED GFR > 60; GLUCOSE 111 mg/dL (70-104); POTASSIUM 4.4 mmol/L (3.5-5.1); SODIUM 138 mmol/L (136-145); TCO2 21 mmol/L (25-35)
[2019-03-07] MEDS: LANOXIN GT SCH (08:52)
[2019-03-07] MEDS: CARDIZEM PO SCH ×3 (08:52→21:28)
[2019-03-07] MEDS: COLACE LIQUID GT SCH ×2 (08:53→21:27)
[2019-03-07] MEDS: SANTYL OINT TOP SCH (08:53)
[2019-03-07] MEDS: ZYVOX 600 MG/D5W 600 MG/300 ML IVPB IV SCH (08:53)
[2019-03-07] MEDS: ELIQUIS GT SCH ×2 (08:53→21:28)
[2019-03-07] MEDS: MIRALAX GT SCH ×2 (08:53→21:27)
[2019-03-07] MEDS: CULTURELLE GT SCH (08:53)
[2019-03-07] MEDS ORDERED: VANCOMYCIN IV PER PHARMACY MISC SCH (09:00)
--- NOTE | 2019-03-07 09:18 | INFECTIOUS DISEASE CONSULT REP ---
DATE: 03/07/2019 CONCLUSION: The patient has a coagulase-negative staphylococcal bacteremia, the exact origin of which is uncertain to me. Even though the patient's blood culture is due to a coagulase-negative Staph, the fact that it is in two of the patient's blood cultures means that this is a true bacteremia and not a contaminant. Also, the patient, on chest x-ray, shows a right lower lobe infiltrate/atelectasis. If indeed the patient does have pneumonia, it would be unusual for it to be a coagulase-negative Staph causing the pneumonia. Possibly, the patient could have pneumonia though due to the bacteremia causing a hematogenous pneumonia. To me, it would be very unusual for the patient to have a coagulase-negative Staph pneumonia that is causing the bacteremia. The patient has a sacral decubitus ulcer which may be the origin of the staph bacteremia. RECOMMENDATIONS: I have discontinued cefepime and Zyvox, and instead placed the patient on vancomycin. I ordered a culture from the sacral decubitus ulcer. DISCUSSION: The patient has had multiple strokes. She is unable to provide any kind of history, and no family member is present. According to the information in the computer, the patient was at her rehab facility and started having fever and also an altered mental status. She was sent to the hospital and has been placed in the intensive care unit. The patient's two blood cultures are growing a coagulase-negative Staph. The patient's CBC shows a white count of 7890, hemoglobin 8.8, and platelet count 132,000. Creatinine is 0.5. GFR is greater than 60. AST is 47. Alkaline phosphatase is 112. Urinalysis showed white cells, but no bacteria. Both blood cultures are growing a coagulase-negative Staph. The urine culture is growing yeast. Sputum grew normal gabriel. Chest x-ray shows right lower lobe infiltrate/atelectasis. An echocardiogram does not show any effusion or vegetation. PAST MEDICAL HISTORY: Positive for strokes, atrial fibrillation, iron- deficiency anemia, congestive heart failure, hypertension, morbid obesity, sleep apnea, diabetes mellitus, asthma, dysphagia, the patient is bed-bound, the patient has pressure ulcers. PAST SURGICAL HISTORY: Positive for section x2, hernia repair x2, cholecystectomy, and appendectomy. FAMILY HISTORY: Positive for coronary artery disease. SOCIAL HISTORY: The patient lives at rehab at [facility]. She is complete total care. ALLERGIES: The patient has no drug allergies. MEDICATIONS: Medications taken at the alf include Eliquis, Lipitor, erythromycin, Rocephin, digoxin, Colace, Lasix, lactobacillus. PHYSICAL EXAMINATION: Vital Signs: Temperature earlier was 104, now it is 99, pulse 70, respirations 18, blood pressure 88/51. The patient's weight is 233 pounds. General: This is an obese, middle-aged female. She does not appear to be in any acute distress. HEENT: No drainage noted from the nose or the ears. I could not get a good look into her mouth. Neck: It was not stiff, but when I did passively move it, it seemed to bother the patient. Lungs: Clear to auscultation. Cardiovascular: Heart rate is irregular. I did not hear a murmur. Abdomen: Soft and nontender. She does have a G-tube in place. The G-tube site is not purulent or swollen. Neurologic: The patient is awake. She did not follow request to move her extremities. She does not have a tremor. She did not track with her eyes. I looked at a picture of the ulcer. It is 6x4 cm and it is erythematous and surrounded by black colored skin. Thank you for the consult. cc: Car White MD MTDD
[2019-03-07] MEDS ORDERED: VANCOMYCIN 2,500 MG in NS 500 ML IV ONE (11:00)
--- NOTE | 2019-03-07 14:33 | INFECTIOUS DISEASE CONSULT REP ---
DATE: 03/07/2019 ADDENDUM: The patient does have a sacral decubitus ulcer. It is 4 x 6 cm. It does have beefy red tissue and it is surrounded by black discolored skin. I think this could be the possible origin of the patient's coagulase-negative Staph bacteremia. I have gone ahead and ordered a culture to be taken from the decubitus ulcer. cc: Car White MD
--- NOTE | 2019-03-07 20:20 | PROGRESS NOTE ---
DATE: 03/07/2019 SUBJECTIVE: The patient is resting comfortably in bed. No acute events noted overnight. OBJECTIVE: Vital Signs: Temperature 97.2 degrees, blood pressure 103/61, heart rate 76, respirations 18, O2 saturations 98% on room air. Intake 3.9 L, output 1.8 L. General: This is a morbidly obese female lying in bed in no acute distress. Heart: S1, S2 normal. Lungs: Equal air entry bilaterally. No wheezing. No rales. Abdomen: Positive bowel sounds. Soft, obese. The patient also has a feeding tube in place. Extremities: No edema. No cyanosis. Neurologic: The patient is awake. LABS: White blood cell count 7.8, hemoglobin 8.8, hematocrit 28, platelets 132,000. Sodium 138, potassium 4.4, chloride 105, CO2 21, BUN 16, creatinine 0.5, glucose 111, phosphorus 3.1, magnesium 1.7. ASSESSMENT AND PLAN: 1. Right lower lobe pneumonia. Continue with antibiotic therapy as directed by Dr. White. 2. Bacteremia. The patient's antibiotics have been adjusted. We will await the results of the blood culture. 3. Atrial fibrillation. Continue on Cardizem and Eliquis. 4. Morbid obesity. Aware. 5. History of stroke with hemiparesis. Aware. We will consult physical therapy. 6. Constipation. Resolved. 7. Obstructive sleep apnea. Aware. 8. Sacral decubitus wound. Continue with wound care and antibiotic therapy. 9. Deep vein thrombosis prophylaxis. The patient is on Eliquis. cc: Cassie Moise MD MTDD
[2019-03-07] MEDS: LIPITOR GT SCH (21:28)
[2019-03-08 07:37] LABS: HEMATOCRIT 32.9 % (37.0-47.0); HEMOGLOBIN 10.3 g/dL (12.0-16.0); MCH 30.8 PG (27-31); MCHC 31.3 g/dL (33-37); MCV 98.5 FL (81-99); RBC 3.34 XMIL (4.2-5.4); RDW 15.3 % (11.5-14.5); WBC 6.67 X1000 (4.8-10.8)
[2019-03-08 07:52] LABS: AGAP 11; BUN 13 mg/dL (8-22); CALCIUM 8.6 mg/dL (8.8-10.2); CHLORIDE 103 mmol/L (98-107); COSMO 275; CREATININE 0.3 mg/dL (0.5-0.9); ESTIMATED GFR > 60; GLUCOSE 114 mg/dL (70-104); POTASSIUM 4.3 mmol/L (3.5-5.1); SODIUM 137 mmol/L (136-145); TCO2 23 mmol/L (25-35)
[2019-03-08] MEDS: CULTURELLE GT SCH ×2 (10:08→23:13)
[2019-03-08] MEDS: LANOXIN GT SCH (10:08)
[2019-03-08] MEDS: CARDIZEM PO SCH ×3 (10:08→23:12)
[2019-03-08] MEDS: COLACE LIQUID GT SCH (10:08)
[2019-03-08] MEDS: MIRALAX GT SCH (10:08)
[2019-03-08] MEDS: ELIQUIS GT SCH ×2 (10:09→23:12)
[2019-03-08] MEDS: VANCOMYCIN 2,000 MG in NS 500 ML IV SCH (12:17)
[2019-03-08] MEDS: SANTYL OINT TOP SCH (12:17)
--- NOTE | 2019-03-08 18:34 | INFECTIOUS DISEASE PROGRESS NO ---
DATE: 03/08/2019 PRESENT ILLNESS: Ms. Rich is being treated for a Staphylococcus capitis bacteremia, the origin of which, may be her decubitus ulcer. MEDICATIONS: She is receiving IV vancomycin per pharmacy dosing. PHYSICAL EXAM: Vital Signs: Temperature is 98.1 degrees, pulse rate 81, respiratory rate 18, blood pressure 100/71, O2 saturation 100% on room air. General: This is a chronically ill- appearing, middle-aged female. She is lying in bed currently in no acute distress. HEENT: Atraumatic, normocephalic. Oral mucous membranes are difficult to visualize. Conjunctivae are pink. Cardiovascular: Irregularly irregular with atrial fibrillation on the monitor. Respiratory: Lung sounds are clear and diminished to auscultation bilaterally. No work of breathing is noted. Abdomen: Soft, obese and nontender to palpation. Bowel sounds are active. There is a PEG tube in place with that site free of edema or erythema or drainage. Integumentary: Skin is warm and dry. She does have a decubitus ulcer which is not visualized at this time. There are offloading boots in place bilaterally. Neurologic: She is awake, alert, and will sometimes answer questions with one syllable words, and will follow commands at times. LABORATORY AND X-RAY: Today her white count is 6.67, hemoglobin 10.3, platelet count 166,000. Creatinine is 0.3, estimated GFR is greater than 60. Her blood cultures grew a Staphylococcus capitis in both specimen. There is a pending decubitus ulcer culture. No imaging reports today. ASSESSMENT AND PLAN: Ms Rich has a Staphylococcus bacteremia which we think may have originated from her decubitus ulcer. That culture is pending. She was started on vancomycin yesterday. We will recheck her blood cultures tomorrow to get a baseline, sterile set. Based on her past surgical history, it does not look as though she has any metal that has been inserted in her body, so she should need 14 days of treatment for the bacteremia which we will start on her first day of sterile blood cultures. These plans have been discussed with and recommended by Dr. White. COMORBIDITIES: For Ms. Rich include that she is a group home patient with previous stroke, atrial fibrillation, congestive heart failure, obesity, sleep apnea, diabetes mellitus and dysphagia requiring a PEG tube. Dictated by OG Justin for Car White MD cc: Car White MD [facility]
[2019-03-08] MEDS ORDERED: LASIX IV ONE (20:01)
--- NOTE | 2019-03-08 20:16 | PROGRESS NOTE ---
DATE: 03/08/2019 SUBJECTIVE: The patient is resting comfortably in bed. No acute events noted overnight. OBJECTIVE: Vital Signs: Temperature 98.5 degrees, blood pressure 98/69, heart rate 85, respirations 19, O2 saturations 100% on room air. Intake 880, output 600. General: This is a morbidly obese female lying in bed in no acute distress. Heart: S1, S2. Normal. Lungs: Equal air entry bilaterally. Mild rhonchi. Abdomen: Positive bowel sounds. Soft, obese. Extremities: 1+ edema bilaterally. Neurologic: The patient is awake. LABS: White blood cell count 6.6, hemoglobin 10, hematocrit 32, platelets 166,000. Sodium 137, potassium 4.3, chloride 103, CO2 23, BUN 13, creatinine 0.3, glucose 114. ASSESSMENT AND PLAN: 1. Bacteremia secondary to Staphylococcus capitis. Continue with antibiotic therapy as directed by Dr. White. 2. Infected sacral decubitus ulcer. The wound culture is currently pending. Continue with wound care and antibiotic therapy. 3. Atrial fibrillation. Rate controlled. Continue on Cardizem and Eliquis. 4. Right lower lobe pneumonia. Continue with antibiotic therapy and bronchodilator therapy. 5. History of stroke with hemiparesis. Aware. Physical therapy has been consulted. 6. Morbid obesity. Aware. 7. Obstructive sleep apnea. Aware. 8. Deep vein thrombosis prophylaxis. The patient is on Eliquis. cc: Cassie Moise MD MTDD
[2019-03-08] MEDS: LIPITOR GT SCH (23:12)
--- NOTE | 2019-03-09 07:19 | Diag Imaging Result Doc PS360 ---
EXAM: CHEST-PORTABLE 03/09/2019 HISTORY: pneumonia TECHNIQUE: AP portable supine at 0548 COMMENT: There is cardiomegaly. There is increased generalized opacity in the right lung compared to 03/06/2019. There is opacification of the left costophrenic angle which was not present at the time the previous study. IMPRESSION: Pneumonia versus pulmonary edema. Electronically signed by Julio Cesar Guerrero 03/09/2019 7:16 AM
[2019-03-09 07:48] LABS: HEMOGLOBIN 9.8 g/dL (12.0-16.0); MCH 31.2 PG (27-31); MCHC 31.6 g/dL (33-37); MCV 98.7 FL (81-99); MPV 11.6 FL (7.4-10.4); RBC 3.14 XMIL (4.2-5.4); RDW 15.4 % (11.5-14.5); WBC 5.76 X1000 (4.8-10.8)
[2019-03-09 07:57] LABS: AGAP 8; ALB/GLOB RATIO 0.8; ALBUMIN 2.4 g/dL (3.5-5.0); ALKALINE PHOSPHATASE 120 U/L (32-104); BUN 9 mg/dL (8-22); CALCIUM 8.6 mg/dL (8.8-10.2); CHLORIDE 103 mmol/L (98-107); COSMO 278; CREATININE 0.3 mg/dL (0.5-0.9); ESTIMATED GFR > 60; GLUCOSE 156 mg/dL (70-104); GOT 16 U/L (10-30); GPT 11 U/L (10-36); POTASSIUM 3.9 mmol/L (3.5-5.1); SODIUM 138 mmol/L (136-145); TCO2 27 mmol/L (25-35); TOTAL BILIRUBIN 0.29 mg/dL (0.20-1.00); TOTAL PROTEIN 5.5 g/dL (6.3-8.3)
[2019-03-09 08:07] LABS: MAGNESIUM 1.6 mg/dL (1.5-2.7)
[2019-03-09] MEDS: ELIQUIS GT SCH ×2 (10:08→21:45)
[2019-03-09] MEDS: CARDIZEM PO SCH ×3 (10:08→23:45)
[2019-03-09] MEDS: LANOXIN GT SCH (10:08)
[2019-03-09] MEDS: CULTURELLE GT SCH ×2 (10:08→21:44)
[2019-03-09] MEDS: SANTYL OINT TOP SCH (12:44)
[2019-03-09] MEDS: VANCOMYCIN 2,000 MG in NS 500 ML IV SCH (12:44)
--- NOTE | 2019-03-09 20:48 | INFECTIOUS DISEASE PROGRESS NO ---
DATE: 03/09/2019 PRESENT ILLNESS: The patient is being treated for Staph capitis bacteremia which may have originated from her sacral decubitus ulcer. MEDICATIONS: This is day 2 of treatment with vancomycin. PHYSICAL EXAMINATION: Vital Signs: Temperature is 98.4 degrees, pulse 87, respirations 16, blood pressure 116/70. General: This is an ill-appearing and obese middle-aged female. She is in no acute distress. Head, eyes, ears, nose, and throat: She does not have any drainage from her nose or ears. She did not respond to verbal stimulation. Cardiovascular: Heart rate is irregular. Lungs: Clear to auscultation. Abdomen: Soft and nontender. The patient does have a PEG tube in place. Neurologic: The patient is lying in bed. She did not respond to verbal stimuli. LAB AND X-RAY: Chest x-ray shows pneumonia versus pulmonary edema. Repeat blood cultures are pending. Two different types of gram-positive cocci are growing from the patient's decubitus ulcer. The blood culture did grow Staph capitis and, as mentioned above, the repeat blood cultures pending. The patient's CBC shows a white count of 5760, hemoglobin 9.8, and platelet count 192,000. Creatinine is 0.3. GFR is greater than 60. Alkaline phosphatase is 120. ASSESSMENT AND PLAN: The patient has a Staph bacteremia, which I think could have originated from her sacral decubitus ulcer. I plan to continue vancomycin pending the results of the culture from the decubitus ulcer. I have ordered a procalcitonin level to help differentiate between pulmonary edema and pneumonia. COMORBIDITIES: The patient lives in a assisted. She has previously had a stroke. She does have atrial fibrillation, congestive heart failure, obesity, sleep apnea, diabetes mellitus, and dysphagia which required a PEG tube. cc: Car White MD
[2019-03-09] MEDS: LIPITOR GT SCH (21:45)
--- NOTE | 2019-03-09 22:53 | PROGRESS NOTE ---
DATE: 03/09/2019 INTERVAL HISTORY: No acute events overnight. Chest x-ray performed today morning suggests worsening infiltrate on the right lung though her oxygenation is stable at her room air. She has not had any more fever episode. She is nonverbal. VITALS: Currently, temperature of 98.4 degrees, pulse of 98, blood pressure 111/71, saturating 100% on room air. PHYSICAL EXAMINATION: General: Does not appear in any acute distress. Mouth: Oral cavity is moist. Lungs: Air entry bilaterally equal. No wheeze, rhonchi, or crackles. Cardiovascular: S1, S2 normal. No murmur, rub, or gallop. Abdomen: Obese, soft, nontender. She has urine catheter. She is responding to painful stimuli all extremities and she winces. LABS: Suggestive of no leukocytosis, normocytic anemia, normal platelet count, normal electrolytes. Microbiology: Blood culture growing Staphylococcus capitis which is methicillin- resistant. Wound culture is growing gram-positive cocci. Further test is pending. IMAGING: Chest x-ray today morning suggests pneumonia versus pulmonary edema. INPUT AND OUTPUT: Suggests she is positive 4.8 L since admission. ASSESSMENT AND PLAN: 1. Sepsis due to Staphylococcus capitis bacteremia likely from infected sacral decubitus ulcer. Follow up final wound culture as well as repeat blood culture results. Continue intravenous vancomycin as per Infectious Disease recommendation. She had a chest, abdomen, pelvis CT on presentation, which did not have any acute pathology. 2. Atrial fibrillation with rapid ventricular rate. Continue current dose of diltiazem, Eliquis, and digoxin. 3. History of multiple cerebrovascular accidents including intracranial hemorrhage. Continue high-dose atorvastatin, apixaban. 4. Right hemithorax infiltrate. I will continue to monitor her vital signs, CBC, and we will order further chest x-ray as needed. 5. Disposition continue monitor patient inside the hospital. cc: Delano Ramirez MD
[2019-03-10] MEDS: LANOXIN GT SCH (09:03)
[2019-03-10] MEDS: CARDIZEM PO SCH ×3 (09:03→20:11)
[2019-03-10] MEDS: ELIQUIS GT SCH ×2 (09:03→20:11)
[2019-03-10] MEDS: SANTYL OINT TOP SCH (09:03)
[2019-03-10] MEDS: CULTURELLE GT SCH ×2 (09:03→20:11)
[2019-03-10] MEDS: VANCOMYCIN 2,000 MG in NS 500 ML IV SCH (14:18)
[2019-03-10] MEDS: NORCO-5 GT PRN (14:31)
[2019-03-10] MEDS: LIPITOR GT SCH (20:11)
--- NOTE | 2019-03-11 04:48 | INFECTIOUS DISEASE PROGRESS NO ---
DATE: 03/10/2019 PRESENT ILLNESS: Ms Rich is being treated for Staph capitis bacteremia. There is also an infected decubitus ulcer which has grown Staph hemolyticus and Enterococcal faecalis. MEDICATIONS: She is receiving IV vancomycin per pharmacy dosing. PHYSICAL EXAMINATION: Vital Signs: Temperature is 98.7 degrees, pulse rate 101, respiratory rate 15, blood pressure 136/81, O2 saturation is 99% on room air. General: This is a chronically ill- appearing, middle-aged, obese female. She is lying in bed, currently in no acute distress. HEENT: Atraumatic, normocephalic. Oral mucous membranes are difficult to visualize. Conjunctivae are pale. Respiratory: Lung sounds are bilaterally clear to auscultation. Diminished in the bases. No work of breathing is noted. Cardiovascular: Irregularly irregular with atrial fibrillation on the monitor. Abdomen: Soft, obese and nontender. Bowel sounds are active. She has a PEG tube in place with that site free of edema, erythema or drainage. Integumentary: Skin is warm and dry. There is a sacral decubitus ulcer which was not visualized at this time. She does have offloading boots bilaterally. Neurologic: She is awake, alert, and will make eye contact, but is not verbalizing or following commands. LABORATORY AND X-RAY: None available today. ASSESSMENT AND PLAN: Ms. Rich is being treated for a Staph bacteremia, which we have been treating with vancomycin. The organisms that have grown from her pressure ulcer are also susceptible to vancomycin, which we will continue. Blood cultures have been redrawn and are pending for a preliminary set. She will need 14 days of treatment for her bacteremia. There is a possibility of pneumonia versus pulmonary edema on the chest x-ray from yesterday. A procalcitonin has been ordered and is pending at this time. These plans have been discussed with and recommended by Dr. White. COMORBIDITIES: For Ms. Rich include that she is a bed-bound group home patient with a previous stroke, atrial fibrillation, congestive heart failure, obesity, sleep apnea, diabetes mellitus, and dysphagia requiring a PEG tube. Dictated by OG Justin for Car White MD cc: Car White MD [facility]
[2019-03-11] MEDS: VANCOMYCIN 2,000 MG in NS 500 ML IV SCH (05:07)
--- NOTE | 2019-03-11 05:20 | PROGRESS NOTE ---
DATE: 03/10/2019 INTERVAL HISTORY: No acute events overnight. SUBJECTIVE: She is nonverbal, and does not answer any questions. VITALS: Temperature 99.2 degrees, pulse 91, respiratory 14, blood pressure 108/68 and saturating 100% on room air. PHYSICAL EXAMINATION: Morbidly obese not in acute distress. HEENT: Oral cavity: She is not able to participate. Lungs: Air entry appears bilaterally equal. No wheeze, rhonchi, or crackles on limited examination. Cardiovascular: S1, S2 is normal. No murmur, rub or gallop. Abdomen: Obese, soft, and nontender. She has urine catheter. She has a gastrostomy tube. Extremities: She is moving her right extremity spontaneously, and winces to painful stimuli all other extremities. Input and output suggests positive 2 L. Since presentation, she is positive 10 L. LABORATORY: No CBC or BMP today. Repeat blood cultures have not shown growth until date. ASSESSMENT AND PLAN: 1. Sepsis due to Staphylococcus capitis bacteremia likely originating from sacral decubitus ulcer. Follow up final blood culture results as collected on 03/09. Continue intravenous vancomycin. As per ID recommendation, her chest, abdomen and pelvis CT did not have any other acute pathology. 2. Atrial fibrillation with rapid ventricular rate on presentation, now well controlled on current dose of diltiazem, digoxin and Eliquis 3. History of multiple CVA and intracranial hemorrhage in the last 6 months in 2019. Continue high-dose atorvastatin and apixaban. 4. Right hemithorax infiltrate. I will monitor CBC tomorrow. She is breathing well on room air. 5. Disposition. The patient would go back to rehab whenever she is medically ready. Currently, we are awaiting blood culture results. cc: Delano Ramirez MD
[2019-03-11 08:44] LABS: AGAP 9; ALBUMIN 2.4 g/dL (3.5-5.0); BUN 9 mg/dL (8-22); CALCIUM 8.5 mg/dL (8.8-10.2); CHLORIDE 99 mmol/L (98-107); COSMO 269; CREATININE 0.2 mg/dL (0.5-0.9); ESTIMATED GFR > 60; GLUCOSE 135 mg/dL (70-104); MAGNESIUM 1.7 mg/dL (1.5-2.7); PHOSPHORUS 3.4 mg/dL (2.7-4.5); POTASSIUM 4.4 mmol/L (3.5-5.1); SODIUM 134 mmol/L (136-145); TCO2 26 mmol/L (25-35)
[2019-03-11] MEDS: ELIQUIS GT SCH (08:45)
[2019-03-11] MEDS: LANOXIN GT SCH (08:45)
[2019-03-11] MEDS: CARDIZEM PO SCH ×3 (08:45→22:29)
[2019-03-11] MEDS: CULTURELLE GT SCH ×2 (08:45→22:29)
[2019-03-11] MEDS: SANTYL OINT TOP SCH (08:46)
[2019-03-11 08:58] LABS: BASO# 0.03 X1000 (0.0-0.2); BASO% 0.5 % (0.0-0.8); EOS# 0.18 X1000 (0.0-0.7); EOS% 2.8 % (0.0-10.0); HEMATOCRIT 33.5 % (37.0-47.0); HEMOGLOBIN 10.2 g/dL (12.0-16.0); IMM GRAN# 0.02 X1000 (0.0-0.04); IMM GRAN% 0.3 % (0.0-0.5); LYMPH# 1.83 X1000 (1.2-3.4); LYMPH% 28.4 % (20.5-51.1); MCH 30.3 PG (27-31); MCHC 30.4 g/dL (33-37); MCV 99.4 FL (81-99); MONO# 0.47 X1000 (0.11-0.59); MONO% 7.3 % (1.7-9.3); MPV 10.3 FL (7.4-10.4); NEUT# 3.92 X1000 (1.4-6.5); NEUT% 60.7 % (42.2-75.2); PLT 237 X1000 (130-400); RBC 3.37 XMIL (4.2-5.4); RDW 15.3 % (11.5-14.5); WBC 6.45 X1000 (4.8-10.8)
[2019-03-11] MEDS: NORCO-5 GT PRN (15:19)
--- NOTE | 2019-03-11 20:58 | PROGRESS NOTE ---
DATE: 03/11/2019 INTERVAL HISTORY: She has not had any fever episode. Her pulse has been 90s to 100s. The chest x-ray performed day before yesterday, had pneumonia versus pulmonary edema, and procalcitonin was drawn which was undetectable. SUBJECTIVE: She is nonverbal. VITALS: Temperature 98.3 degrees, pulse 97, respiratory rate 18, blood pressure 105/64, saturating 100% on room air. PHYSICAL EXAMINATION: Morbidly obese, not in any acute distress. Oral cavity is dry. Air entry bilaterally equal. No wheeze, rhonchi, or crackles. S1, S2 normal, regular. No murmur or gallop.Abdomen: Obese, soft, nontender. No lower extremity edema. She is spontaneously moving her right upper and lower extremity today. Skin: She has stage I to stage II sacral decubitus ulcer involving about a 10 x 10 cm area. LABORATORY AND DIAGNOSTIC DATA: Suggestive of no leukocytosis, normocytic anemia, normal platelet count, normal electrolytes. Procalcitonin was unremarkable. Microbiology: Blood culture drawn on March 09, did not have any growth. No new imaging. ASSESSMENT AND PLAN: 1. Sepsis due to Staphylococcus capitis bacteremia likely originating from sacral decubitus ulcer, which is growing Staphylococcus hemolyticus and Enterococcus faecalis sensitive to vancomycin. First day of negative blood culture is 03/09/2019. She will need at least 2 weeks of IV antibiotics. PICC consult has been ordered. 2. Atrial fibrillation with rapid ventricular rate on presentation, now well controlled on current dose of diltiazem, digoxin, and Eliquis. I am holding Eliquis in anticipation of PICC line tomorrow. 3. History of multiple cerebrovascular accidents, intracranial hemorrhage in the last 6 months in 2019. Continue high-dose atorvastatin and apixaban after PICC line insertion. 4. Right hemithorax infiltrate. She does not have low oxygen saturation, fever, or respiratory distress, and procalcitonin is undetectable. This is likely atelectasis. 5. Disposition. I will get the PICC line tomorrow, and if she continues to do better, my plan is to discharge her back to rehab. I called patient's son and left a voice message. I was able to talk with her sister. I informed her about patient's clinical course, possible plan, and I answered all of her questions. cc: Delano Ramirez MD
[2019-03-11] MEDS: LIPITOR GT SCH (22:29)
[2019-03-12] MEDS: VANCOMYCIN 2,000 MG in NS 500 ML IV SCH (00:32)
[2019-03-12] MEDS ORDERED: NS 250 ML ONE (07:46)
[2019-03-12 08:13] LABS: INR 1.15; PROTIME 14.9 Seconds (11.0-16.0)
[2019-03-12] MEDS: CULTURELLE GT SCH (09:15)
[2019-03-12] MEDS: LANOXIN GT SCH (09:15)
[2019-03-12] MEDS: CARDIZEM PO SCH ×2 (09:16→15:50)
[2019-03-12] MEDS: NORCO-5 GT PRN ×2 (09:19→17:42)
[2019-03-12] MEDS: SANTYL OINT TOP SCH (09:20)
--- NOTE | 2019-03-12 13:58 | DISCHARGE SUMMARY ---
ADMISSION DATE: 03/05/2019 DISCHARGE DATE: 03/12/2019 DISCHARGE DISPOSITION: Back to rehab. DISCHARGE CONDITION: Hemodynamically stable. Her blood cultures have cleared. She is still nonverbal. DISCHARGE DIAGNOSES: 1. Methicillin-resistant Staphylococcus capitis bacteremia originating from infected sacral decubitus ulcer. 2. Infected sacral decubitus ulcer stage II growing Staphylococcus haemolyticus and Enterococcus faecalis. 3. Atrial fibrillation with rapid ventricular rate. 4. Morbid obesity. OTHER DIAGNOSES: 1. History of multiple cerebrovascular accident and ischemic cerebrovascular accident as well as intracranial hemorrhage in 2019. 2. Hyperlipidemia. 3. On long-term anticoagulation with Eliquis. 4. Iron-deficiency anemia. 5. Asthma. 6. Bed-bound status and dysphagia secondary to cerebrovascular accident. 7. Status post gastrostomy tube. DISCHARGE MEDICATIONS: 1. Intravenous vancomycin as per Infectious Disease recommendation through 03/23/2019 for Staphylococcus bacteremia. 2. Albuterol 3 mL every 4 hours as needed for shortness of breath. 3. Magnesium citrate 10 ounce per G-tube as needed. 4. Docusate 1 capsule G-tube b.i.d. 5. Digoxin 125 mcg daily. 6. Bisacodyl 5 mg p.r.n. through G-tube. 7. Eliquis 2.5 mg b.i.d. 8. Lactobacillus 1 tablet daily. 9. Furosemide 20 mg G-tube daily. 10. Atorvastatin 40 mg G-tube at nighttime. 11. Acetaminophen 650 mg every 8 hours as needed for pain. 12. Diltiazem 30 mg every 8 hours. 13. Collagenase Clostridium ointment 3 g ointment 1 application daily over sacral decubitus. CONSULTATIONS DURING HOSPITALIZATION: Cardiology Dr. Arenas. VITALS: At time of discharge, temperature 97.9 degrees, pulse 96, respiratory rate 16, blood pressure 117/68 and saturating 95% on room air. PHYSICAL EXAMINATION: General: Morbidly obese not in acute distress. HEENT: Oral cavity is moist. Lungs: Air entry bilaterally equal. No wheeze, rhonchi, crackles. Abdomen: Obese and soft. Gastric tube in place. Extremities: No lower extremity edema. She was spontaneously moving right upper and right lower extremity. Pelvic: She had a stage II sacral decubitus ulcer involving about 10 x 8 cm area on my previous examination. LABORATORY: Labs during hospital admission and discharge[place] 439[address] which improved to 6000 at the time of discharge, hemoglobin 10.2, and platelets 237,000, BUN 9, creatinine 0.2. Procalcitonin was undetectable. Microbiology on admission, 2 of the blood cultures were growing Staphylococcus capitis which were resistant to methicillin. The pressure ulcers were growing Staphylococcus haemolyticus and Enterococcus faecalis which were also resistant to oxacillin. However, both of the pressure sacral ulcer cultures as well as blood cultures were sensitive to vancomycin. IMAGING: Significant imaging done during hospital admission, chest x-ray on admission had low lung volumes and mild basilar atelectasis. Chest, abdomen, and pelvis CT on admission had mild right lower lobe infiltrate. Echocardiogram had ejection fraction of 50 to 55 percent, but it was of poor acoustic window. Normal left ventricular cavity size. Chest x-ray on 03/09 had pneumonia versus pulmonary edema however, Procalcitonin was negative. EKG on admission had atrial fibrillation with rapid ventricular response. General Surgery was consulted, and they had recommended decubitus wound which did not have any purulence. Debridement of loading and local wound care was recommended. HOSPITAL COURSE SUMMARY: Ms. Rich is a 53 year old lady who presented on 03/05/2019 with chief complaints of fever and altered mental status from rehab. 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 Since then, she had become aphasic, had dysphagia, and had G-tube in place. She was in bed-bound status at [facility]. When she presented to [facility] for altered mental status and fever, she was found to have temperature of 104.3 degrees so she was resuscitated with intravenous fluids. Intravenous antibiotics were administered. Cardiology was consulted for atrial fibrillation with rapid ventricular rate. With fluids and antibiotics, her bacteremia cleared up and she will be discharged on vancomycin. It was thought that the source of Staphylococcus bacteremia was likely the broken stage II sacral decubitus ulcer. She will complete vancomycin course. Her atrial fibrillation was taken care of by adding diltiazem to her home digoxin. She was continued on her home anticoagulation with Eliquis. At the time of discharge, she was hemodynamically stable. Her atrial fibrillation had rate controlled and a PICC line is currently being set up. I had called the patient's son yesterday however, could not reach out to him and so I had talked the plan with the patient's sister yesterday. All of her questions were answered. TIME SPENT: More than 32 minutes was spent on discharging this patient. cc: MD LEONILA Osorio
--- NOTE | 2019-03-12 17:47 | Diag Imaging Result Doc PS360 ---
EXAM: CHEST-PORTABLE INDICATION: port placement TECHNIQUE: One view COMPARISON: 03/09/2019 FINDINGS: There has been interval placement of a right PICC line. The tip projecting over the lower SVC near the atriocaval junction in the expected position. Increased opacity seen on the previous study has resolved. This likely represented pulmonary edema that has grossly resolved. No new consolidation is identified. Cardiac silhouette is stable. IMPRESSION: Interval placement of right PICC line and improvement of the opacities in both lungs seen on the previous study. Electronically signed by Michael Garcia 03/12/2019 5:44 PM
[2019-03-12] MEDS ORDERED: VANCOMYCIN 2,000 MG in NS 500 ML IV SCH (18:00)
[2019-03-12 18:08] VITALS: BP 136/90
--- NOTE | 2019-03-12 18:55 | INFECTIOUS DISEASE PROGRESS NO ---
DATE: 03/12/2019 SUBJECTIVE/PLAN: There are plans for Ms. Rich to be discharged back to [facility] possibly today. She has orders for a PICC line insertion and will need 11 more days of vancomycin for her Staph capitis bacteremia, as well as the bacteria that have grown in her pressure ulcer. Orders have been filled out for her to receive 2 g of vancomycin daily through the end of her treatment day, which is 03/23/2019. After that time, the PICC line should be removed. Orders have also been put in for lab work including CBC with differential, creatinine, and vancomycin trough. These plans have been discussed with and recommended by Dr. White. Dictated by OG Justin for Car White MD cc: Car White MD
== END 2019-03-12 18:57 | DRG 871 ==
LOC: SUPCPDRO → ED 06:43 → EDIPHOLD 12:49 → SUATTDRO 12:49 → ICU 16:17 → 3N 03-07 17:06
PROVIDERS: ATTEND Internal Medicine

== ENCOUNTER 2019-03-23 08:08 | Inpatient (IN) ==
[2019-03-23] MEDS ORDERED: VANCOMYCIN 1 GM/NS 1 GM/250 ML IVPB IV ONE (08:42)
[2019-03-23] MEDS ORDERED: ZOSYN 3.375 GM in NS 50 ML IV ONE (08:42)
--- NOTE | 2019-03-23 08:44 | PROVIDER DOCUMENTATION ---
HPI-General Adult - General Chief Complaint: Fever Stated Complaint: FEVER Time Seen by Provider: 03/23/19 08:36 Source: EMS Allergies/Adverse Reactions: Patient Allergies Allergy/AdvReac Type Severity Reaction Status Date / Time No Known Allergies Allergy Verified 03/05/19 07:23 Home Medications: Home Medication List Medication Instructions Recorded Confirmed Last Taken Type ATORVAstatin [Lipitor] 40 mg GT HS 03/05/19 03/23/19 03/22/19 21:00 History 40 mg Collagenase Clostridium Oint 1 applicatn TOP DAILY oint 03/12/19 03/23/19 03/22/19 09:00 Rx [Santyl Oint] 1 application Apixaban [Eliquis] 2.5 mg GT BID 03/15/19 03/23/19 03/22/19 21:00 History 2.5 mg Lactobacillus Acidophilus 1 cap GT DAILY 03/15/19 03/23/19 03/22/19 09:00 History [Acidophilus] 1 cap Acetaminophen [Tylenol] 650 mg PEG Q6H PRN PRN tab 04/05/19 Unknown Rx Bisacodyl [Dulcolax] 1 tab GT Q6H PRN #0 04/05/19 03/23/19 Unknown Rx Digoxin 125 mcg GT DAILY #0 04/05/19 03/23/19 03/22/19 09:00 Rx 125 mcg Diltiazem [Cardizem] 30 mg GT 0900,1500,2100 tab 04/05/19 Unknown Rx Docusate Sodium [Colace] 100 mg GT BID #0 04/05/19 03/23/19 03/22/19 21:00 Rx 100 mg Furosemide [Lasix] 20 mg GT DAILY #0 04/05/19 03/23/19 03/22/19 09:00 Rx 20 mg Ipratropium [place] Neb [Atrovent 0.5 mg INH Q6H PRN PRN neb 04/05/19 Unknown Rx Neb] Vancomycin HCl in Water 2 gm IV Q18H #1 vial 04/05/19 Unknown Rx [Vancomycin 2,000 mg/20Ml-Water] - History of Present Illness -Gen Adult Nature of Presenting Problems: 53 YO F in [facility] for CVA and residual paralysis presents via EMS and sent by [facility] after an episode of vomiting, some respiratory distress and fever with elevated heart rate. On exam, pt was on 4L NC, not normally on chronic o2, with an elevated temp and HR in 170s. Per record review, pt has hx of afib. Pt was seen here recently and completed a course of abx (vanc) for MRSA infection. She does not answer questions. Review of Systems - Adult - REVIEW OF SYSTEMS - ADULT ROS:: unobtainable per condition Constitutional: reports: see HPI Past History - Adult - PAST MEDICAL HISTORY-ADULT Review of Records: reports: Old Records Reviewed, Social history reviewed & non- contributory. Major Childhood Illnesses: reports: denies history Cardiovascular: reports: A-Fib, CAD, CHF Respiratory: reports: denies history Gastrointestinal: reports: denies history Obstetrical/Gynecological: reports: denies history Genitourinary: reports: denies history Musculoskeletal: reports: denies history Neurological: reports: cognitive dysfunction, CVA, stroke deficits Endocrine/Immune: reports: denies history Other Conditions: reports: denies history - PRIOR SURGERIES/PROCEDURES Surgical/Procedure History: reports: reviewed, not pertinent - IMMUNIZATION STATUS Childhood Immunizations: UTD Flu Vaccine: NUTD - FAMILY HISTORY Family History: reviewed, not pertinent Physical Exam-General - PHYSICAL EXAM-ADULT Initial Vital Signs Reviewed: Yes - CONSTITUTIONAL General Appearance: obese, obtunded - EYES Eyes: pink conjunctivae - HEAD, EARS, NOSE, MOUTH & THROAT HENMT: other (dry mucous membranes) - RESPIRATORY Respiratory: respiratory distress - GASTROINTESTINAL (ABDOMEN) Abdominal Exam: other (obese abd, PEG in epigastric region) - MUSCULOSKELETAL Extremity: no pedal edema - SKIN Integumentary: normal color, normal turgor, warm/dry - NEUROLOGIC Neurologic: other (unable to evaluate) - PSYCHIATRIC Psych/Mental Status: other (unable to evaluate) Progress - PLAN OF CARE/RESULTS Progress/Plan/Lab Results: Vital Signs - 8 hr 03/23/19 08:37 Temperature 104.4 F H Pulse Rate 136 H Respiratory Rate 32 H Blood Pressure 121/70 O2 Sat by Pulse Oximetry 96 Orders Category Date Time Status Cardiac Monitoring DIRECTED Care 03/23/19 08:38 Ordered IV Insertion ORDERED Care 03/23/19 08:38 Ordered Notify MD of + Sepsis Screen NOW Care 03/23/19 08:38 Ordered Notify Physician As Ordered Care 03/23/19 08:38 Ordered CHEST-1 VIEW [RAD] Stat Exams 03/23/19 08:38 Ordered ABG [RESP] Stat Lab 03/23/19 08:38 Ordered BLOOD CULTURE [BLDCUL] Stat Lab 03/23/19 08:38 Uncollected CBC WITH DIFF [HEME] Stat Lab 03/23/19 08:38 Uncollected CK PROFILE [SP CHEM] Stat Lab 03/23/19 08:38 Uncollected COMPREHENSIVE METABOLIC PANEL [CHEM] Stat Lab 03/23/19 08:38 Uncollected LACTATE, PLASMA [CHEM] Q3H Lab 03/23/19 08:45 Uncollected LACTATE, PLASMA [CHEM] Q3H Lab 03/23/19 11:45 Uncollected LACTATE, PLASMA [CHEM] Q3H Lab 03/23/19 14:45 Uncollected PROTIME WITH INR [COAG] Stat Lab 03/23/19 08:38 Uncollected PTT [COAG] Stat Lab 03/23/19 08:38 Uncollected TROPONIN T Stat Lab 03/23/19 08:38 Uncollected URINALYSIS W/POSS RFLX CULT [URINALYSIS] Stat Lab 03/23/19 08:38 Uncollected Vancomycin 1 gm IV Now Med 03/23/19 08:42 Ordered Vancomycin 1 gm/Ns 1 gm in 250 ml IV NOW Zosyn 3.375 gm/Ns IV Now Med 03/23/19 08:42 Ordered Piperacillin/Tazobactam [Zosyn] 3.375 gm 0.9% Sodium Chloride Inj [Ns] 50 ml IV NOW Oxygen Device Stat Oth 03/23/19 08:38 Ordered EKG [EKG] Stat Ther 03/23/19 08:43 Ordered Result Diagrams: 04/05/19 04:55 04/05/19 04:55 - REASSESSMENT Reassessment #1 Time Reassessed: 10:56 Status: unchanged (pt remains tachycardic. EKG showing Afib with RVR. pt was given cardizem push with minor improvement from 170s to 130s. HR increased back to 150s, started on cardizem drip. drip increased to 15. pt still tachycardic. will get dig level and possibly start digoxin) Reassessment #2 Time Reassessed: 12:05 Status: improving (HR improving after digoxin push and continued cardizem drip) - EKG 1 Time of EKG reading by physician:: 09:07 EKG Read and Signed by:: Laura Zheng EKG Interpretation (*Must complete 3 of following elements*): Abnormal Rate: 178 Rhythm: Afib with RVR [place]: left Prior EKG Comparison: unchanged from prior (03/23/19) - XRAY 1 XRAY Study: Chest Impression: See EMR Report (EXAM: CHEST-1 VIEW HISTORY: hypoxia TECHNIQUE: Single view COMPARISON: 03/15/2019 FINDINGS: Poor inspiratory effort. There is a right-sided PICC line. The patient is rotated to the left. The bilateral infiltrates/pulmonary edema with a small left pleural effusion. IMPRESSION: Stable exam Electronically signed by Tee Rios 03/23/2019 10:53 AM) - CONSULTS/PCP/HOSPITALIST Notification #1 *Consult/PCP/Hospitalist*: Wilma, will admit to hospitalist Time Discussed: 11:42 Consult Disposition: Will see in ED Departure - Departure Date of Disposition Decision: 03/23/19 Time of Disposition Decision: 11:38 DIAGNOSIS: Aspiration pneumonia, UTI (urinary tract infection), Atrial fibrillation with RVR Disposition: ADMITTED INPATIENT 09 Certified Medical Emergency: Emergent Condition: Stable - Critical Care Note This patient required my direct & personal management of CC.: Yes Total Time (mins): 75 Critical Care Statement: This patient required my direct personal management to treat or rule out processes, the absence of which, could potentiallly result in sudden, clinically significant life or limb threatening deterioration. Attestation - Physician/ [place] Attestation Patient care was provided by Advanced Practice Provider:: No The physician spent face to face time with patient:: Yes Advanced Practice Provider documentation review:: Supervising physician onsite and consulted in the evaluation and care of this patient. The physician did have a face to face encounter with the patient.
[2019-03-23] MEDS ORDERED: NS 2,000 ML IV ONE (08:45)
[2019-03-23] MEDS ORDERED: OFIRMEV 1000 MG/ISOTONIC SOLN 1,000 MG/100 ML BOTTLE IV ONE (08:46)
--- NOTE | 2019-03-23 09:07 | EKG Report ---
Test Performed on : 03/23/2019 09:04:19 AM Test Reason : sob Blood Pressure : / mmHG Vent. Rate : 178 BPM Atrial Rate : 108 BPM P-R Int : 000 ms QRS Dur : 066 ms QT Int : 246 ms P-R-T Axes : 000 -56 089 degrees QTc Int : 423 ms Atrial fibrillation. with rapid ventricular response. with premature ventricular or aberrantly conduc edvin complexes. Left axis deviation Low voltage QRS Inferior infarct (cited on or before 05-MAR-2019) Possible Anterolateral infarct (cited on or before 05-MAR-2019) Abnormal ECG When compared with ECG of 15-MAR-2019 04:35, (Unconfirmed) Questionable change in initial forces of Anterolateral leads Unconfirmed Result
[2019-03-23 09:08] LABS: ALLEN TEST YES; BE 4.1 mmoll (-3.0-3.0); BLOOD TYPE ARTERIAL; HCO3-(ACT) 28.1 mmoll (20.0-26.0); METHB 1.1 % (0.0-1.5); O2(CT) 16.3 mL/dL (15.0-23.0); O2HB 95.9 % (95.0-99.0); PCO2(98.6) 27 mmHg (35-45); PO2(98.6) 88 mmHg (60-100); SAMPLE BLOOD; SAO2 98.9 % (95.0-100.0)
[2019-03-23 09:10] LABS: MODALITY CANNULA; pH(98.6) 7.58 (7.35-7.45)
[2019-03-23 09:22] LABS: BASO# 0.03 X1000 (0.0-0.2); BASO% 0.3 % (0.0-0.8); HEMATOCRIT 36.2 % (37.0-47.0); HEMOGLOBIN 11.8 g/dL (12.0-16.0); IMM GRAN# 0.04 X1000 (0.0-0.04); IMM GRAN% 0.3 % (0.0-0.5); LYMPH# 0.96 X1000 (1.2-3.4); LYMPH% 8.3 % (20.5-51.1); MCH 30.6 PG (27-31); MCHC 32.6 g/dL (33-37); MCV 93.8 FL (81-99); MPV 10.9 FL (7.4-10.4); NEUT# 9.85 X1000 (1.4-6.5); NEUT% 85.1 % (42.2-75.2); PLT 277 X1000 (130-400); RBC 3.86 XMIL (4.2-5.4); RDW 14.2 % (11.5-14.5); WBC 11.58 X1000 (4.8-10.8)
[2019-03-23] MEDS ORDERED: CARDIZEM IV ONE (09:25)
[2019-03-23 09:31] LABS: INR 1.5; PROTIME 18.4 Seconds (11.0-16.0)
[2019-03-23 09:32] LABS: PTT 28.7 Seconds (22.3-41.8)
[2019-03-23] MEDS: CARDIZEM 100 MG/NS 100 MG/100 ML IVPB IV SCH (09:59)
[2019-03-23 10:04] LABS: URINE SOURCE CATH
[2019-03-23 10:08] LABS: AGAP 15; ALB/GLOB RATIO 0.9; ALBUMIN 2.7 g/dL (3.5-5.0); ALKALINE PHOSPHATASE 127 U/L (32-104); BUN 20 mg/dL (8-22); CALCIUM 7.9 mg/dL (8.8-10.2); CHLORIDE 90 mmol/L (98-107); CK PROFILE 61 U/L (24-173); COSMO 265; CREATININE 0.6 mg/dL (0.5-0.9); ESTIMATED GFR > 60; GLUCOSE 201 mg/dL (70-104); GOT 68 U/L (10-30); GPT 28 U/L (10-36); POTASSIUM 3.9 mmol/L (3.5-5.1); SODIUM 128 mmol/L (136-145); TCO2 23 mmol/L (25-35); TOTAL BILIRUBIN 0.77 mg/dL (0.20-1.00); TOTAL PROTEIN 5.8 g/dL (6.3-8.3)
[2019-03-23 10:10] LABS: COLOR YELLOW; TURBIDITY URINE HAZY (CLEAR); UR EPITHELIAL CELLS <10 /HPF (<10); URINE BACTERIA 1+ /HPF; URINE RBC <10 /HPF (<10)
[2019-03-23 10:11] LABS: BILIRUBIN URINE NEGATIVE (NEGATIVE); BLOOD URINE SMALL (NEGATIVE); GLUCOSE URINE NEGATIVE (NEGATIVE); KETONE URINE TRACE mg/dL (NEGATIVE); LEUKOCYTES URINE SMALL (NEGATIVE); NITRITE URINE NEGATIVE (NEGATIVE); PROTEIN URINE 30 mg/dL (NEGATIVE); UROBILINOGEN URINE NORMAL (NORMAL)
[2019-03-23 10:12] LABS: URINE CRYSTALS CA OXALATE PRESENT; URINE YEAST PRESENT
[2019-03-23 10:40] LABS: BANDS 2 % (0-1); LYMPHS 10 % (21-51); MONO 6 % (1-9); SEGS 82 % (42-75)
[2019-03-23] MEDS ORDERED: LANOXIN IV ONE (10:50)
--- NOTE | 2019-03-23 10:56 | Diag Imaging Result Doc PS360 ---
EXAM: CHEST-1 VIEW HISTORY: hypoxia TECHNIQUE: Single view COMPARISON: 03/15/2019 FINDINGS: Poor inspiratory effort. There is a right-sided PICC line. The patient is rotated to the left. The bilateral infiltrates/pulmonary edema with a small left pleural effusion. IMPRESSION: Stable exam Electronically signed by Tee Rios 03/23/2019 10:53 AM
[2019-03-23] MEDS ORDERED: CITRATE OF MAGNESIA GT PRN (12:00)
[2019-03-23] MEDS ORDERED: ZOFRAN IV PRN (12:00)
[2019-03-23] MEDS ORDERED: VANCOMYCIN IV PER PHARMACY MISC SCH (12:00)
[2019-03-23] MEDS ORDERED: SODIUM CHLORIDE 0.9% INJ PRN (12:00)
[2019-03-23] MEDS ORDERED: MERREM 1 GM in NS 50 ML IV ONE (12:00)
[2019-03-23] MEDS ORDERED: DULCOLAX GT PRN (12:00)
[2019-03-23] MEDS ORDERED: MOTRIN PO PRN (12:00)
[2019-03-23] MEDS ORDERED: PHENERGAN IV PRN (12:00)
--- NOTE | 2019-03-23 13:11 | Diag Imaging Result Doc PS360 ---
EXAM: CT THORAX/ABD/PELVIS W/O CON 03/23/2019 HISTORY: pna; abscess recent; vomiting; fever 105 TECHNIQUE: This exam was performed using automated exposure control, adjustment of mA or kV according to patient size, and/or use of iterative reconstruction technique. COMMENT: Thorax: The current study is compared with the previous examination of 03/05/2019. There is beam hardening artifact. The opacity which was previously present in the posterior right lower lobe has largely resolved. There is some platelike atelectasis in both lower lobes. There is also apparent atelectasis in the lingula which was not present previously. The regional skeleton is stable in appearance. ABDOMEN: There is severe beam hardening artifact. The liver, spleen, adrenal glands, and pancreas are grossly stable in appearance compared to the previous examination of 03/05/2019. There is no evidence of stones or hydronephrosis in the kidneys. There is some oral contrast demonstrated within the small bowel and colon without evidence of obstruction. Some subcutaneous edema is present particularly anteriorly and on the left. The appendix is normal in appearance. Pelvis: There is subcutaneous edema superficial to the sacrum. This was also the case on the previous study but appears somewhat worse. There is also worsened subcutaneous edema over the panniculus anteriorly. There are severe degenerative changes in the hips particularly the right hip. There is gas in the sacroiliac joints and severe facet arthropathy at the L5-S1 level is present. There is apparent spinal stenosis and severe facet arthropathy at L4-5. IMPRESSION: Bibasilar atelectasis. Improved pneumonia right lower lobe, worsened atelectasis in the lingula. Worsened mild anasarca. Other nonacute findings as described above. Electronically signed by Julio Cesar Guerrero 03/23/2019 1:09 PM
[2019-03-23] MEDS ORDERED: NS 1,000 ML IV ONE (13:34)
[2019-03-23] MEDS: PROTONIX IV SCH (14:45)
[2019-03-23] MEDS: SODIUM CHLORIDE 0.9% INJ SCH (14:46)
[2019-03-23] MEDS ORDERED: OFIRMEV 1000 MG/ISOTONIC SOLN 1,000 MG/100 ML BOTTLE IV PRN (15:18)
[2019-03-23] MEDS: XOPENEX NEB INH SCH ×3 (15:24→23:41)
[2019-03-23] MEDS: ATROVENT NEB INH SCH ×3 (15:24→23:41)
[2019-03-23] MEDS: HUMULIN R SUBQ SCH ×2 (16:00→21:00)
--- NOTE | 2019-03-23 16:41 | Diag Imaging Result Doc PS360 ---
EXAM: KUB ABDOMEN 03/23/2019 HISTORY: displaced TECHNIQUE: KUB portable COMMENT: There is contrast injected through a jejunostomy tube which appears to opacify the jejunum. There is no evidence of extravasation of contrast. IMPRESSION: Tube in the jejunum. Electronically signed by Julio Cesar Guerrero 03/23/2019 4:38 PM
[2019-03-23 16:53] LABS: ALLEN TEST YES; BE 0.2 mmoll (-3.0-3.0); BLOOD TYPE ARTERIAL; HCO3-(ACT) 25.1 mmoll (20.0-26.0); METHB 1.1 % (0.0-1.5); O2(CT) 16.3 mL/dL (15.0-23.0); O2HB 95.7 % (95.0-99.0); PCO2(98.6) 27 mmHg (35-45); PO2(98.6) 77 mmHg (60-100); SAMPLE BLOOD; SAO2 98.9 % (95.0-100.0); THB 12.1 g/dL (11.5-17.4); pH(98.6) 7.52 (7.35-7.45)
[2019-03-23 16:54] LABS: MODALITY CANNULA
[2019-03-23] MEDS: NS 1,000 ML IV SCH (17:34)
[2019-03-23] MEDS: MAXIPIME 2 GM in NS 100 ML IV SCH (17:35)
[2019-03-23] MEDS: TYLENOL PEG PRN (18:05)
[2019-03-23 18:10] LABS: UR AMPHETAMINES QUAL NONE DETECTED (NONE DETECT); UR BARBITUATES QUAL NONE DETECTED (NONE DETECT); UR BENZODIAZEPIN QUAL NONE DETECTED (NONE DETECT); UR CANNABINOIDS QUAL NONE DETECTED (NONE DETECT); UR COCAINE QUAL NONE DETECTED (NONE DETECT); UR METHADONE QUAL NONE DETECTED (NONE DETECT); UR OPIATES QUAL NONE DETECTED (NONE DETECT); UR OXYCODONE QUAL NONE DETECTED (NONE DETECT); UR PCP QUAL NONE DETECTED (NONE DETECT)
--- NOTE | 2019-03-23 19:19 | HISTORY AND PHYSICAL ---
ADDENDUM: I agree with most components of history, physical, assessment, and plan. In brief, Ms Rich is a 53-year-old lady with past medical history of multiple ischemic cerebrovascular accident as well as intracranial hemorrhage between September to November 2018, a recent episode of Staphylococcus hemolyticus sepsis, atrial fibrillation with rapid ventricular rate, bed- bound status, status post PEG tube, who came in with chief complaints of high-grade fever [facility]. In the emergency room she was found to have temperature of 105 degrees, atrial fibrillation with rapid ventricular rate, hyponatremia, hypochloremia, so hospitalist team was consulted for further management. At the time of my evaluation, the patient is nonverbal and appears tachypneic. CURRENT VITAL SIGNS: Suggest she is not febrile to touch. Pulse rate of 128, irregularly irregular, respiratory rate of 36, blood pressure 122/70, saturating 99% on room air. PHYSICAL EXAMINATION: GENERAL: Morbidly obese. She is in mild distress because of tachypnea. HEENT: Oral cavity is dry. SKIN: She has a right-sided arm PICC line. The site appears not infected. LUNGS: Air entry bilaterally equal. No wheeze, rhonchi, or crackles. CARDIOVASCULAR: S1, S2 normal. Irregularly irregular. No murmur or gallop. ABDOMEN: Soft. She has a PEG tube. The site appears noninflamed. Otherwise, abdomen is soft. EXTREMITIES: No lower extremity edema. NEUROLOGIC: She is lethargic. She opens eyes to strong verbal stimuli. She is moving to painful stimuli, right lower extremity. I could not elicit appropriate response on bilateral upper and left lower extremity. Reflexes - I was not able to elicit properly, she is nonverbal. Pupils are bilaterally equal reacting to light. LABS: Suggestive of leukocytosis, normocytic anemia, normal platelet count, respiratory alkalosis, hyponatremia, and hypochloremia. A degree of pyuria. Microbiology - blood cultures have been drawn. Urine culture is pending. She was given intravenous digoxin in the ER. EKG suggestive of atrial fibrillation with rapid ventricular rate. IMAGING: CT scan suggestive of atelectasis; bilateral sacroiliac joint gas. She also has a sacral decubitus ulcer stage II. ASSESSMENT AND PLAN: 1. Sepsis potential source being right-sided arm PICC line. 2. Sacral decubitus ulcer. 3. Septic arthritis of bilateral hip joint. Continue intravenous fluid resuscitation. Give additional third liter of intravenous fluid bolus. Start patient on broad-spectrum intravenous vancomycin, intravenous meropenem. Appreciate Infectious Disease and Orthopedic recommendation. Follow up blood culture. 4. Atrial fibrillation with rapid ventricular rate, likely because of underlying sepsis. She has been started on intravenous diltiazem. I will continue her apixaban and appreciate Cardiology recommendation. 5. Hyponatremia and hypochloremia due to intravascular volume depletion. Continue intravenous fluids and follow up with electrolytes. 6. History of multiple cerebrovascular accidents. Continue her home apixaban. I will resume other home medications as tolerated. DISPOSITION: The patient's condition is critical. More than 30 minutes of critical care time was spent taking care of this patient. I informed the patient's mother and daughter at bedside about the patient's critical condition. I explained to them about high risk of morbidity and mortality and the fact that I was concerned about her survival. Daughter explicitly mentioned that the code status is full code and she would want everything to be done for her mother. She also asked me questions about Watchman procedure and wound over her chin and I explained to her that considering she is critically ill she is not a candidate of Watchman procedure at the moment and that the wound on the chin appears to be likely trauma. cc: Delano Ramirez MD
[2019-03-23] MEDS: PULMICORT INH SCH (19:36)
--- NOTE | 2019-03-23 19:49 | HISTORY AND PHYSICAL ---
ADDENDUM: I evaluated the patient at bedside in the emergency room. Apparently, her PEG tube had come out and the emergency room physician just placed a new PEG tube. She is awaiting a contrast study through PEG tube to confirm the position. The patient still appears tachypneic. She moves her eyes to verbal stimuli. Keeps her eyes open. Her saturation has been acceptable. She does have persistent tachycardia. I talked with patient's brother and sister at bedside, and I explained to them about the patient's critical condition. I will also get urine toxicology, acetaminophen, salicylate level, and repeat ABG. Her condition appears very critical. cc: Delano Ramirez MD MTDD
[2019-03-23] MEDS ORDERED: VANCOMYCIN 2,000 MG in NS 500 ML IV SCH (21:00)
--- NOTE | 2019-03-23 21:38 | INFECTIOUS DISEASE PROGRESS NO ---
DATE: 03/23/2019 PRESENT ILLNESS: The patient was sent from her intermediate to the emergency room because of fever. MEDICATIONS: In the emergency room the patient has been started on vancomycin and I added cefepime. PHYSICAL EXAMINATION: Vital Signs: I could not find any vital signs in the computer. General: This is an ill-appearing, obese, middle-aged female. She is lying with her eyes closed and is obtunded. Head, eyes, ears, nose, and throat: No drainage was noted from the nose or ears. Neck: No meningismus. Lungs: Clear to auscultation. Cardiovascular: Heart rate is irregular and rapid. Abdomen: Soft. It did not appear to be tender. A G-tube is in place. The site is not purulent or bleeding. Neurologic: The patient is obtunded she did not respond to verbal stimuli. There is no tremor. Extremities: The patient has a PICC in the right arm. The site is not purulent or bleeding. Integument: The patient has a sacral decubitus superficial ulcer, it does not have any purulence or odor to it. There is no there is no necrotic or devitalized tissue in the wound. LAB AND X-RAY: CT scan of the chest, abdomen and pelvis shows that there is improvement in the patient's right lower lobe pneumonia. There is bibasilar atelectasis and worsening anasarca. Blood and urine cultures are pending. CBC shows a white count of 11,580, hemoglobin 11.8, and platelet count 277,000. Creatinine is 0.6. GFR is greater than 60, alkaline phosphatase is 127, AST is 68. ASSESSMENT AND PLAN: Patient may have an infection from her peripherally inserted central catheter site. She appears to have on CT scan pneumonia which is getting better. She has a Hernandez catheter in and she could have a urinary tract infection. The patient in the emergency room has been started on vancomycin and I have added cefepime. COMORBIDITIES: The patient lives in a intermediate. She previously has had a stroke. She has atrial fibrillation, congestive heart failure, obesity, sleep apnea, diabetes mellitus, and dysphagia which required the presence of a PEG tube was needed. cc: Car White MD
--- NOTE | 2019-03-23 21:44 | HISTORY AND PHYSICAL ---
PRIMARY CARE PROVIDER: Dr. Noah Young from [facility]. CHIEF COMPLAINT: Patient brought here due to fever. HISTORY OF PRESENT ILLNESS: Ms. Dottie Rich is a 53-year-old, - [place] female, with a medical history of CVA in September 2018, also a history of hemorrhagic CVA, history of atrial fibrillation, on Eliquis, iron deficiency anemia, congestive heart failure, morbid obesity, diabetes, being bed-bound secondary to the CVA, and pressure ulcers that were present on admit. Apparently, there is report that she started having fever yesterday. She had a reported fever of anywhere from 99 to 103 yesterday. Sources that we have found have been urinary tract infection, right-sided pneumonia. She has a sacral decubitus. She has a PICC line. There is also some gas in the sacroiliac joints, so there are multiple locations of high risk of infection. She is having respiratory distress with tachypnea. She is nonverbal. Her fevers have been as high as 104 to 105, and barely decrease with Tylenol. We will check a flu on her and we are going to send her to the ICU. PAST MEDICAL HISTORY: 1. Atrial fibrillation. 2. Hemorrhagic CVA. 3. Ischemic CVA x2, all in this year of 2019. 4. Atrial fibrillation, on Eliquis. 5. Iron deficiency anemia. 6. Congestive heart failure. 7. Hypertension. 8. Morbid obesity. 9. Sleep apnea. 10. Diabetes mellitus type 2. 11. Asthma. 12. Dysphagia secondary to CVA. 13. Bed-bound secondary to CVA. 14. Bedsores. SURGICAL HISTORY: 1. section x2. 2. Hernia repair x2. 3. Cholecystectomy. 4. Appendectomy. 5. PEG tube placement. 6. PICC line placement. SOCIAL HISTORY: She is a resident at [facility]. Unable to provide information on smoking, smoking history, or alcohol history. Family wishes her to be a full code. FAMILY HISTORY: Father with coronary artery disease. Brother with coronary artery disease. ALLERGIES: No known drug allergies. HOME MEDICATIONS: 1. Lactobacillus 1 capsule per G-tube daily. 2. Magnesium citrate 30 mL per G-tube daily p.r.n. 3. Colace 100 mg per G-tube twice daily. 4. Digoxin 125 mcg per G-tube daily. 5. Bisacodyl 5 mg per G-tube p.r.n. 6. Eliquis 2.5 mg per G-tube twice a day. 7. Ibuprofen 400 mg p.o. 4 times per day p.r.n. 8. Albuterol/Atrovent inhaled every 4 hours p.r.n. 9. Lasix 20 mg per G-tube daily. 10. Lipitor 40 mg per G-tube nightly. 11. Acetaminophen 650 mg tablets 2 per G-tube every 6 hours p.r.n. 12. Diltiazem 30 mg per G-tube 3 times a day. 13. Santyl ointment over sacrum daily. REVIEW OF SYSTEMS: Unable to obtain. PHYSICAL EXAMINATION: VITAL SIGNS: Temperature 104.5 degrees, heart rate 132, respiratory rate 22, blood pressure 93/76, O2 saturation 95% on 4 L nasal cannula. GENERAL: Ms. Dottie Rich is a 53-year-old, -[place] female. She is nonverbal. She can only answer through blinking of her eyes. When I asked her if she could hear me, she closed her eyes tightly as I had asked for her to. HEENT: Atraumatic, normocephalic. Pupils are equal and reactive. Mucous membranes moist. NECK: Trachea midline. CARDIOVASCULAR: Irregularly irregular. Tachycardic rate and rhythm. No rubs, gallops, murmurs. She has lower extremity edema, +2 dorsalis and radial pulses. Negative JVD or carotid bruits. PULMONARY: Decreased in the bases. She is tachypneic. Using accessory muscles for respirations. GASTROINTESTINAL: PEG tube in place. After it was pulled out earlier, it was replaced by the ER physician. Positive bowel sounds x4. Soft, obese. EXTREMITIES: She is unable to move all of her extremities. NEUROLOGIC: She could use her eyes to squeeze tightly when I asked her if she could hear me. Otherwise, she is nonverbal. SKIN: Warm, dry, intact. Sacral decubitus. LABORATORY DATA: White blood cells 11,000, hemoglobin 11, hematocrit 36, platelet count 277,000. INR is 1.50, PTT is 28.7. ABGs: A pH 7.58, pCO2 of 27, PO2 of 88, bicarbonate 28, base excess 4.1, saturation 95.9%, lactate 1.5. Sodium 128, potassium 3.9, BUN 20, creatinine 0.6, glucose 201, calcium 7.9, magnesium 1.7, bilirubin 0.77, AST 68, ALT 28. CK 61, troponin 0.031. Albumin 2.7, lactate 1.1. Urinalysis: 30 protein, trace ketones, small blood, small leukocytes, 10 to 20 white blood cells, 1+ bacteria, yeast is present. Digoxin 0.7. IMAGIN. Chest, abdomen, and pelvic CT: Bibasilar atelectasis, right lower lobe pneumonia, mild anasarca, gas in the sacroiliac joints. 2. Chest x-ray: It was a stable exam, showed the PICC line in place. 3. EKG: Atrial fibrillation with a rate of 178. ASSESSMENT/PLAN: 1. Fever of unknown origin. Could be from pneumonia, urinary tract infection. She had an old area of infection that she was most recently treated for earlier in February, with vancomycin. She could have a sacral decubitus that causing infection and could be septic joints. There is gas in the sacroiliac joints on the CT scan. She has been started on Merrem and vancomycin. 2. Right lower lobe pneumonia. She is on antibiotics, nebulizers. 3. Urinary tract infection. Again, she is on antibiotic therapy. 4. Percutaneous endoscopic gastrostomy tube got pulled out in the emergency room. It was replaced by the emergency room physician. Placement needs to be confirmed. 5. Stroke that has left her bed-bound and currently she is nonverbal. 6. History of congestive heart failure. 7. Atrial fibrillation with rapid ventricular response. Cardizem drip has been initiated. 8. Hypertension. Currently, she is not hypertensive. Home medications were resumed, but those may need to be stopped. 9. Septic shock. Please see #1. She did receive IV fluids. 10. Diabetes mellitus type 2. We will do patterned blood glucoses and sliding scale insulin. 11. Pressure ulcer. We will get a Wound Care consult. Dictated by OG Snell for Delano Ramirez MD cc: OG Snell MD I agree with most components of history, physical, assessment and plan. A separate addendum has been dictated. [facility]
[2019-03-23] MEDS ORDERED: MERREM 1 GM in NS 50 ML IV SCH (22:00)
[2019-03-23] MEDS: VANCOMYCIN 2,000 MG in NS 500 ML IV SCH (22:07)
[2019-03-23] MEDS: COLACE LIQUID GT SCH (22:20)
[2019-03-23] MEDS: ELIQUIS GT SCH (22:21)
[2019-03-23] MEDS: LIPITOR GT SCH (22:22)
[2019-03-24] MEDS: PROTONIX IV SCH ×3 (01:34→23:42)
[2019-03-24] MEDS: XOPENEX NEB INH SCH ×6 (03:23→23:34)
[2019-03-24] MEDS: ATROVENT NEB INH SCH ×6 (03:23→23:34)
[2019-03-24 05:32] LABS: BASO# 0.02 X1000 (0.0-0.2); BASO% 0.1 % (0.0-0.8); HEMATOCRIT 34.4 % (37.0-47.0); HEMOGLOBIN 11.1 g/dL (12.0-16.0); IMM GRAN% 0.7 % (0.0-0.5); LYMPH# 2.04 X1000 (1.2-3.4); LYMPH% 13.3 % (20.5-51.1); MCH 30.5 PG (27-31); MCHC 32.3 g/dL (33-37); MCV 94.5 FL (81-99); MONO# 1.06 X1000 (0.11-0.59); MONO% 6.9 % (1.7-9.3); MPV 10.5 FL (7.4-10.4); NEUT# 12.13 X1000 (1.4-6.5); PLT 223 X1000 (130-400); RBC 3.64 XMIL (4.2-5.4); RDW 14.4 % (11.5-14.5); WBC 15.35 X1000 (4.8-10.8)
[2019-03-24 06:03] LABS: ALLEN TEST YES; BE -0.5 mmoll (-3.0-3.0); BLOOD TYPE ARTERIAL; HCO3-(ACT) 24.5 mmoll (20.0-26.0); METHB 1.1 % (0.0-1.5); O2(CT) 14.7 mL/dL (15.0-23.0); O2HB 93.3 % (95.0-99.0); PCO2(98.6) 30 mmHg (35-45); PO2(98.6) 62 mmHg (60-100); SAMPLE BLOOD; SAO2 96.6 % (95.0-100.0); THB 11.2 g/dL (11.5-17.4); pH(98.6) 7.48 (7.35-7.45)
[2019-03-24] MEDS: MAXIPIME 2 GM in NS 100 ML IV SCH ×2 (06:03→18:26)
[2019-03-24 06:04] LABS: MODALITY CANNULA
[2019-03-24 06:06] LABS: AGAP 14; ALB/GLOB RATIO 0.7; ALBUMIN 2.4 g/dL (3.5-5.0); ALKALINE PHOSPHATASE 106 U/L (32-104); BUN 24 mg/dL (8-22); CALCIUM 8.1 mg/dL (8.8-10.2); CHLORIDE 98 mmol/L (98-107); COSMO 272; CREATININE 0.4 mg/dL (0.5-0.9); ESTIMATED GFR > 60; GLUCOSE 156 mg/dL (70-104); GOT 114 U/L (10-30); GPT 58 U/L (10-36); MAGNESIUM 1.7 mg/dL (1.5-2.7); POTASSIUM 3.5 mmol/L (3.5-5.1); SODIUM 132 mmol/L (136-145); TCO2 20 mmol/L (25-35); TOTAL BILIRUBIN 0.92 mg/dL (0.20-1.00); TOTAL PROTEIN 5.8 g/dL (6.3-8.3)
[2019-03-24] MEDS: NS 1,000 ML IV SCH ×2 (06:07→20:51)
--- NOTE | 2019-03-24 06:10 | Diag Imaging Result Doc PS360 ---
EXAM: CHEST-PORTABLE HISTORY: pna TECHNIQUE: Single view COMPARISON: 03/23/2019 FINDINGS: The patient is rotated to the left. Poor inspiratory effort. No change in the right PICC line. Heart is mildly prominent. There are infiltrates and atelectasis in the lower left lung with a small pleural effusion. IMPRESSION: No interval improvement Electronically signed by Tee Rios 03/24/2019 6:08 AM
[2019-03-24] MEDS: TYLENOL PEG PRN (06:14)
[2019-03-24] MEDS: HUMULIN R SUBQ SCH ×3 (07:00→20:49)
--- NOTE | 2019-03-24 08:08 | EKG Report ---
Test Performed on : 03/24/2019 06:30:36 AM Test Reason : Follow up A Fib. Blood Pressure : / mmHG Vent. Rate : 119 BPM Atrial Rate : 105 BPM P-R Int : 000 ms QRS Dur : 062 ms QT Int : 284 ms P-R-T Axes : 000 -27 214 degrees QTc Int : 399 ms Atrial fibrillation. with rapid ventricular response. with premature ventricular or aberrantly conduc edvin complexes. Low voltage QRS Inferior infarct (cited on or before 05-MAR-2019) Anterolateral infarct (cited on or before 05-MAR-2019) Abnormal ECG When compared with ECG of 23-MAR-2019 09:04, (Unconfirmed) Vent. rate has decreased BY 59 BPM Nonspecific T wave abnormality now evident in Inferior leads Nonspecific T wave abnormality, worse in Anterolateral leads Confirmed by Aaliyah BELTRAN, Kiran ([id number]) on 03/24/2019 8:53:11 AM
[2019-03-24] MEDS: PULMICORT INH SCH ×2 (08:19→19:56)
--- NOTE | 2019-03-24 08:20 | CONSULTATION ---
DATE OF CONSULTATION: 03/23/2019 IMPRESSION: 1. Atrial fibrillation with rapid ventricular rate. The patient has chronic atrial fibrillation, and heart rate is significantly elevated in the setting of acute noncardiac illness. 2. Clinical presentation with fever and leukocytosis. Suspect sepsis likely. 3. Status post recurrent cerebrovascular accidents with initial cerebrovascular accident in 09/2018 with an ischemic cerebrovascular accident. At that time, she was found to be in atrial fibrillation and was started on anticoagulation. She suffered an intracerebral hemorrhage while on anticoagulation with Xarelto, and anticoagulation was stopped. She later had recurrent ischemic cerebrovascular accident in 01/2019. She continues with significant neurologic impairment. 4. Hypertension. 5. Decubitus ulcer in the setting of bedbound state. RECOMMENDATIONS: 1. The patient has had evaluation with [facility], and is being considered for Watchman device. In the interim, she has been placed on Eliquis 2.5 mg p.o. b.i.d., and recommend this be continued. 2. Continue to manage for rate control cautiously with diltiazem and digoxin as you are doing. 3. Intravenous hydration. She appears to be somewhat intravascular volume depleted, and may require hydration with her sepsis. 4. Treat for underlying infectious process as you are doing. 5. Conservative cardiovascular management overall. HISTORY: This 53-year-old, unfortunate, female with history of atrial fibrillation, recurrent ischemic cerebrovascular accidents, hemorrhagic cerebrovascular accident while on anticoagulation with Xarelto, significant debility following consecutive cerebrovascular accidents, bedbound state, and hypertension, was transferred from [facility] for further management of diminished level of consciousness and high fever. She was suspected of having sepsis. She was noted to have atrial fibrillation with increased ventricular rate response in this setting, and for this reason, Cardiology was consulted. She is from [place], [place], and this is where her family lives. Her primary provider and city manager are also in [place], [place]. She suffered a cerebrovascular accident in September of this year, and was found to be in atrial fibrillation. She was treated with anticoagulation, and in November suffered an intracerebral hemorrhage, after which anticoagulation was discontinued. She had been on Xarelto at that time. In January, she suffered recurrent ischemic cerebrovascular accident. She apparently has been considered for Watchman procedure with Dr. Schrader in [place], and in the interim has been started on low-dose Eliquis 2.5 mg twice daily. She is pretty much bedbound. She has a feeding gastrostomy tube (PEG tube) given dysphagia since her recurrent cerebrovascular accidents. She has significant decubitus ulcer. She recently reportedly had Staphylococcus haemolyticus sepsis. She has been found to have high fever. When I see her, she is somewhat drowsy, but will open her eyes to verbal stimulus, such as calling her name, and she does follow commands by closing her eyes upon command. However, she contributes very little to her history, and is essentially nonverbal beyond this point. PAST MEDICAL HISTORY: 1. Hypertension. 2. Chronic atrial fibrillation. 3. Recurrent ischemic cerebrovascular accidents x2 this year. 4. Intracerebral hemorrhage in November while on anticoagulation with Xarelto. 5. Asthma. 6. Decubitus ulcers and pressure sores. 7. Status post PEG tube placement. PAST SURGICAL HISTORY: Also includes cholecystectomy, hernia repair, section, and appendectomy. ALLERGIES: She has no known drug allergies. MEDICATIONS PRIOR TO ADMISSION: As listed. It is noteworthy that she has been on digoxin 0.125 mg p.o. daily, and diltiazem 30 mg p.o. t.i.d. for rate control. She has also been on Eliquis 2.5 mg p.o. b.i.d. SOCIAL HISTORY: She currently resides at [facility]. She does not smoke or use alcohol. FAMILY HISTORY: Negative for premature coronary disease. REVIEW OF SYSTEMS: Not obtainable given the patient's nonverbal state. PHYSICAL EXAMINATION: General: This is a middle-aged, female with mild increase in respiratory rate, who is somewhat drowsy, but opens eyes to verbal stimulation, such as calling her name. Respirations are somewhat sonorous. Vital Signs: Blood pressure 115/63, heart rate 120 and irregular with ECG monitoring showing atrial fibrillation, oxygen saturation 95% on nasal cannula oxygen at 4 L per minute. HEENT: Extraocular movements appear to be intact. Mucous membranes are somewhat dry. Neck: Supple with jugular venous distention. There are no carotid bruit. Chest: Auscultation of the chest reveals scattered expiratory rhonchi. Cardiac: Irregular rate and rhythm without appreciable murmur or gallop. Abdomen: Soft. Bowel sounds are normal. Extremities: Without edema. DIAGNOSTIC DATA: A 12-lead EKG is reviewed and demonstrates atrial fibrillation with rapid ventricular rate response, left axis deviation, low-voltage QRS, and delayed precordial R-wave progression. LABORATORY DATA: Includes a white blood cell count of 11.58, hematocrit 36.2, hemoglobin 11.8, platelet count 277,000. Sodium 128, potassium 3.9, chloride 90, carbon dioxide 22, BUN 20, creatinine 0.6, glucose 201. Albumin 2.7. Digoxin level 0.7. cc: Juanpablo Barbosa MD
[2019-03-24] MEDS: LANOXIN GT SCH (10:51)
[2019-03-24] MEDS: ELIQUIS GT SCH ×2 (10:53→20:51)
[2019-03-24] MEDS: COLACE LIQUID GT SCH ×2 (10:55→20:51)
--- NOTE | 2019-03-24 12:58 | PROGRESS NOTE ---
DATE: 03/24/2019 INTERVAL HISTORY: No acute events overnight. The patient's ABG was unremarkable. She continued to spike high-grade fever, and she continued to remain tachycardic with one of the 2 blood cultures is growing gram-positive cocci. SUBJECTIVE: Currently, the patient is drowsy, and easily arousable with strong verbal stimuli. She is still tachypneic however, slightly better than yesterday. She is not able to engage in clinical encounter as she is nonverbal. VITALS: Temperature currently 98.1 degrees pulse 112, respiratory 24, and blood pressure 107/67. She is saturating 98% on 4 L nasal cannula. PHYSICAL EXAMINATION: Mild distress because of tachypnea. She follows commands. When I applied suction, she was able to open her mouth. Oral cavity is otherwise dry.Lungs: Air entry bilaterally equal. No wheeze, rhonchi, crackles. Cardiovascular: S1, S2 normal. Irregularly irregular. No murmur or gallop. Abdomen: Obese, soft, nontender. Extremities: No lower extremity edema. She has a right arm PICC line and urine catheter. Input and output suggests it is not charted appropriately. LABORATORY: Labs suggestive of leukocytosis, normocytic anemia, and normal platelet count. Acceptable range of oxygenation right now, and mild alkalosis likely respiratory. Her electrolytes are improving as compared to yesterday. She had mild transaminitis because of ongoing sepsis. Her salicylate levels were not detectable. MICROBIOLOGY: Influenza Screen has been negative. Urine culture has not shown any growth. Blood culture data is positive for gram-positive cocci. IMAGING: Chest x-ray suggests no interval improvement. ASSESSMENT AND PLAN: 1. Gram-positive sepsis, potential source could be right-sided arm PICC line, persistent sacral decubitus ulcer, or septic arthritis of bilateral hip joint. Continue intravenous vancomycin, intravenous cefepime, intravenous fluids. Follow up final culture data. Orthopedic Team and Infectious Disease team's recommendations are appreciated. I will also consider getting an echocardiogram to rule out an infective endocarditis. 2. Atrial fibrillation with rapid ventricular rate because of sepsis. Continue intravenous diltiazem, digoxin, and apixaban as per Cardiology's recommendation. 3. PEG tube dysfunction. Her PEG tube was replaced by the emergency room physician and appears to be inside the jejunum. 4. Hyponatremia and hypochloremia due to intravascular volume depletion, now improving. 5. History of multiple CVA and baseline nonverbal and bed-bound status. 6. Continue home apixaban and also continue her atorvastatin. 7. Other medication, I will resume once she is medically stable. 8. Disposition. The patient's condition is really critical. TIME SPENT: More than 30 minutes of critical care time was spent taking care of this patient. Unfortunately, she did not find a bed in ICU when she was in the emergency room overnight. I will keep the family informed. cc: Delano Ramirez MD
[2019-03-24] MEDS: VANCOMYCIN 2,000 MG in NS 500 ML IV SCH (15:56)
[2019-03-24] MEDS: CARDIZEM 100 MG/NS 100 MG/100 ML IVPB IV SCH (18:14)
[2019-03-24] MEDS: CULTURELLE FOR KIDS GT SCH (18:54)
--- NOTE | 2019-03-24 18:58 | Diag Imaging Result Doc PS360 ---
EXAM: CHEST-PORTABLE INDICATION: CVL placement. TECHNIQUE: One view COMPARISON: 03/24/2019 FINDINGS: The right PICC line is in stable position. There has been interval placement of a right IJ line. The tip projects over the right atrium. There is no evidence of pneumothorax postplacement. The chest is grossly stable, otherwise. IMPRESSION: Interval placement of right IJ line as described. No evidence of pneumothorax postplacement. Electronically signed by Michael Garcia 03/24/2019 6:56 PM
[2019-03-24] MEDS: SANTYL OINT TOP SCH (20:48)
[2019-03-24] MEDS: LIPITOR GT SCH (20:51)
[2019-03-24] MEDS: SODIUM CHLORIDE 0.9% INJ SCH (23:43)
[2019-03-25] MEDS: CARDIZEM 100 MG/NS 100 MG/100 ML IVPB IV SCH (02:08)
[2019-03-25] MEDS ORDERED: NS 250 ML IV ONE ×2 (03:43→04:53)
[2019-03-25] MEDS: XOPENEX NEB INH SCH ×6 (03:50→23:44)
[2019-03-25] MEDS: ATROVENT NEB INH SCH ×6 (03:50→23:44)
[2019-03-25] MEDS: NS 1,000 ML IV SCH ×4 (05:09→23:57)
[2019-03-25] MEDS: MAXIPIME 2 GM in NS 100 ML IV SCH ×2 (05:09→16:17)
[2019-03-25] MEDS: HUMULIN R SUBQ SCH ×4 (06:13→21:28)
[2019-03-25 06:20] LABS: BASO# 0.01 X1000 (0.0-0.2); BASO% 0.1 % (0.0-0.8); EOS# 0.04 X1000 (0.0-0.7); EOS% 0.3 % (0.0-10.0); HEMATOCRIT 29.1 % (37.0-47.0); HEMOGLOBIN 9.1 g/dL (12.0-16.0); IMM GRAN# 0.09 X1000 (0.0-0.04); IMM GRAN% 0.7 % (0.0-0.5); LYMPH# 0.83 X1000 (1.2-3.4); LYMPH% 6.8 % (20.5-51.1); MCHC 31.3 g/dL (33-37); MONO# 0.72 X1000 (0.11-0.59); MONO% 5.9 % (1.7-9.3); MPV 11.6 FL (7.4-10.4); NEUT# 10.49 X1000 (1.4-6.5); NEUT% 86.2 % (42.2-75.2); PLT 183 X1000 (130-400); RBC 3.03 XMIL (4.2-5.4); RDW 14.6 % (11.5-14.5); WBC 12.18 X1000 (4.8-10.8)
[2019-03-25 06:43] LABS: AGAP 11; ALB/GLOB RATIO 0.8; ALBUMIN 2.4 g/dL (3.5-5.0); ALKALINE PHOSPHATASE 90 U/L (32-104); BUN 20 mg/dL (8-22); CHLORIDE 102 mmol/L (98-107); COSMO 276; CREATININE 0.3 mg/dL (0.5-0.9); ESTIMATED GFR > 60; GLUCOSE 125 mg/dL (70-104); GOT 42 U/L (10-30); GPT 36 U/L (10-36); MAGNESIUM 1.8 mg/dL (1.5-2.7); POTASSIUM 3.2 mmol/L (3.5-5.1); SODIUM 136 mmol/L (136-145); TCO2 23 mmol/L (25-35); TOTAL BILIRUBIN 0.68 mg/dL (0.20-1.00); TOTAL PROTEIN 5.3 g/dL (6.3-8.3)
--- NOTE | 2019-03-25 07:18 | INFECTIOUS DISEASE PROGRESS NO ---
DATE: 03/24/2019 PRESENT ILLNESS: The patient was sent from the emergency room because of fever. It appears that the patient has a bacteremia, most likely originating from her PICC. She also, on x-ray, appears to have a left lower lobe infiltrate suggestive of pneumonia. MEDICATIONS: The patient is on a combination of vancomycin and cefepime. PHYSICAL EXAMINATION: Vital Signs: Earlier, the temperature was 105 degrees and now it is 98. The patient's pulse is 101, respirations 23, blood pressure 111/77. General: This is an obese, middle-aged female. She is obtunded. She appears to be in no acute distress. Head, Eyes, Ears, Nose, and Throat: She did not respond to verbal stimuli. There is no drainage from her nose or ears. Neck: No stiffness. Lungs: Clear to auscultation. Cardiovascular: Regular heart rate. Abdomen: Soft. It was not tender. The patient has a G-tube in place. The site is not purulent or bleeding. Neurologic: The patient is obtunded. She does not respond to verbal stimuli. She does not have a tremor. Extremities: The patient has a PICC in the right arm. The site is not purulent or swollen. LAB AND X-RAY: The CBC shows a white count of 15,350, hemoglobin 11.1, and platelet count 223,000. Blood gases show a pH of 7.48, a PO2 of 62, and a pCO2 of 30. Creatinine is 0.4. GFR is greater than 60. AST is 114. Urinalysis showed white cells and bacteria. The patient's drug screen is negative. Swab for influenza is negative. One of two blood cultures is growing a gram- positive coccus. Urine culture is negative. ASSESSMENT AND PLAN: The patient's fever appears to be from her peripherally inserted central catheter in the right arm which is infected, and also pneumonia. My plan is to remove the peripherally inserted central catheter and culture the tip. Continue vancomycin and cefepime. COMORBIDITIES: The patient lives in a [facility]. She previously had a stroke. She has atrial fibrillation, congestive heart failure, obesity, sleep apnea, diabetes mellitus, and dysphagia which was the reason the patient had a PEG placed. cc: Car White MD
--- NOTE | 2019-03-25 07:46 | CONSULTATION ---
DATE OF CONSULTATION: 03/24/2019 REQUESTING PROVIDER: OG Snell. REASON FOR CONSULTATION: Respiratory distress. HISTORY OF PRESENT ILLNESS: This is a 53-year-old female with multiple medical history including multiple CVA, atrial fibrillation, congestive heart failure, morbid obesity, obstructive sleep apnea, asthma and diabetes mellitus type 2. She presented to the ER yesterday morning via EMS from [facility] with 1 episode of vomiting, some respiratory distress, fever and tachycardia. Initial workup in the ER revealed right lower lobe pneumonia, urinary tract infection and septic shock. She has been on vancomycin and cefepime per Dr. White, the Infectious Disease specialist. The patient currently is lying on the ER stretcher with no acute distress noted. She is on a nasal cannula at 4 L and tolerates well. She is on the Cardizem drip and IV cefepime. The urine in the drainage back at the bedside is zachary and clear. There is no family at the bedside. The patient is nonverbal. All other information is obtained from the E-chart. PAST MEDICAL HISTORY: 1. Atrial fibrillation. 2. Multiple CVAs with residual paralysis. Baseline nonverbal and bed-bound. 3. Atrial fibrillation on Eliquis. 4. Iron deficiency anemia. 5. Congestive heart failure. 6. Hypertension. 7. Morbid obesity. Current BMI is 37.6. 8. Obstructive sleep apnea. 9. Diabetes mellitus type 2. 10. Asthma. 11. Dysphagia secondary to CVA status post PEG tube placement. 12. Bed bound secondary to CVA. 13. Decubitus ulcer. PAST SURGICAL HISTORY: 1. section x2. 2. Hernia repair x2. 3. Cholecystectomy. 4. Appendectomy. 5. PEG tube placement 6. PICC line placement. SOCIAL HISTORY: The patient lives at [facility] with total care. Unknown about history of tobacco, alcohol or illicit drug use. FAMILY HISTORY: Positive for coronary artery disease. ALLERGIES: No known drug allergies. REVIEW OF SYSTEMS: Unable to be obtained. PHYSICAL EXAMINATION: Vital Signs: Temperature 98.1 degrees, blood pressure 107/67, pulse 104, respiratory rate 22, oxygen saturation 98% on nasal cannula at 4 L. General: Chronically ill appearing, nonverbal, lying on the ER stretcher. No acute distress noted. HEENT: Atraumatic, normocephalic. Trachea midline. Mucosa pink and moist. Respiratory: Even and unlabored. Symmetrical excursion. Auscultation revealed diminished breathing sounds bibasilarly, otherwise clear. Cardiovascular: Irregular S1-S2 noted. No murmur noted. Gastrointestinal: Tattoo in place. Soft, obese. Normoactive bowel sounds in all 4 quadrants. Extremities: Some trace pedal edema. No cyanosis. Dorsalis pedis diminished bilaterally. Neurologic: Patient is awake, opens her eyes and looks at me briefly, but she is nonresponsive to pain stimuli on all 4 extremities, not following commands, nonverbal, unable to move all of extremities. LABORATORY DATA: White blood cell 15.35, hemoglobin 11.1, hematocrit 34.4, platelet 223,000. Sodium 132, potassium 3.5, chloride 98, carbon dioxide 20, BUN 24, creatinine 0.4, glucose 156. ABG: pH 7.48, pCO2 40, pO2 62, HC03 24.5, base excess -0.5 and oxyhemoglobin 93.3. IMAGING DATA: Chest x-ray this morning showed stable with poor inspiratory effort, mildly prominent heart and left lower lobe infiltrates, atelectasis and small pleural effusion. ASSESSMENT: This is a 53-year-old female with multiple medical history including multiple cerebrovascular accidents, atrial fibrillation, congestive heart failure, hypertension, morbid obesity, obstructive sleep apnea, diabetes mellitus type 2, and asthma. She has been admitted since 03/23/2019 with septic shock with right lower lobe pneumonia and urinary tract infection. 1. Acute hypoxic respiratory failure. 2. Gram-positive sepsis. 3. Right lower lobe pneumonia. 4. Urinary tract infection. 5. Atrial fibrillation with rapid ventricular rate. PLAN: 1. Continue supplemental oxygen as needed. 2. Continue antibiotics per Dr. White. Continue bronchodilators. 3. Follow up with CBC, CMP, blood culture, sputum culture and urine culture. 4. Continue GI and DVT prophylaxis. 5. Further recommendations pending hospital course. Thank you for the courtesy of this consult. Dictated by OG Pak for Max John MD cc: OG Pak MD [facility]
--- NOTE | 2019-03-25 08:33 | OPERATIVE NOTE ---
PROCEDURE DATE: 03/24/2019 PREOPERATIVE DIAGNOSES: 1. Sepsis. 2. Atrial fibrillation with rapid ventricular response. 3. History of strokes. POSTOPERATIVE DIAGNOSES: 1. Sepsis. 2. Atrial fibrillation with rapid ventricular response. 3. History of strokes. PROCEDURE: Insertion of central venous catheter with ultrasound guidance. SURGEON: Kevin Alvarez MD. COMPLICATIONS: None apparent. FINDINGS: The right internal jugular vein was found with ultrasound. It is compressible and patent without thrombus. TECHNIQUE: She was placed in Trendelenburg in the ICU bed. The right neck was prepped and draped in usual sterile fashion. 1% lidocaine was used to anesthetize the skin over the internal jugular vein which was visualized with ultrasound. The vein was then accessed under ultrasound guidance with 1 stick with the needle and syringe. The wire passed through the needle easily. The track was dilated. A triple-lumen catheter was passed over the wire into the vein via the Seldinger technique. The wire was removed. All ports joseph back blood and were flushed with saline. The port was anchored to the skin with silk suture. A sterile dressing was applied. There were no apparent complications. cc: Kevin Alvarez MD
--- NOTE | 2019-03-25 08:46 | PROVIDER PROGRESS NOTE ---
Progress Note Pulmonary additional Note: Case assessed and full note to follow.
[2019-03-25] MEDS: COLACE LIQUID GT SCH ×2 (09:08→20:17)
[2019-03-25] MEDS: LANOXIN GT SCH (09:08)
[2019-03-25] MEDS: CULTURELLE FOR KIDS GT SCH (09:09)
[2019-03-25] MEDS: ELIQUIS GT SCH ×2 (09:09→20:17)
[2019-03-25] MEDS: CARDIZEM GT SCH ×3 (09:09→20:17)
[2019-03-25] MEDS: ZYVOX 600 MG/D5W 600 MG/300 ML IVPB IV SCH ×2 (09:39→21:01)
[2019-03-25] MEDS: SANTYL OINT TOP SCH (09:43)
[2019-03-25] MEDS: CUBICIN 700 MG in NS 100 ML IV SCH (10:55)
[2019-03-25] MEDS: PULMICORT INH SCH ×2 (11:22→20:08)
--- NOTE | 2019-03-25 11:22 | PROGRESS NOTE ---
DATE: 03/25/2019 INTERVAL HISTORY: No acute events overnight. Her PICC line was removed, and a central line was placed for intravenous access. SUBJECTIVE: Ms. Rich is nonverbal. She did not have any other acute overnight events. Her vitals were largely unremarkable. She did have decreasing urine output to an extent that she has not been making any urine at the moment. I discussed with the nurse about getting a bladder scan and flushing the Hernandez. OBJECTIVE: Vital Signs: She has been afebrile with temperature of 97 degrees, pulse of 74, respiratory rate 14, blood pressure 114/64, saturating 100% on 4 L nasal cannula. General: Morbidly obese. Not in any acute distress. HEENT: Poor oral health. She opens mouth to verbal stimuli. Lungs: Air entry bilaterally equal. No wheeze, rhonchi, or crackles. Cardiovascular: S1, S2 normal. Not tachycardic. No murmur, rub, or gallop. She has a right- sided neck central line. Abdomen: Obese, soft, nontender. She does have a gastrostomy tube. Genitourinary: She has a urine catheter. Extremities: No lower extremity edema. Neurologic: She is alert. She is nonverbal. Input and output suggest that she only had 380 mL of urine so far. LABORATORY DATA: Suggestive of mild leukocytosis, normocytic anemia, normal platelet count, hypokalemia. Her BUN and creatinine appear okay. MICROBIOLOGY: No positive data so far. IMAGING: Chest x-ray this morning suggests interval placement of right IJ, without evidence of pneumothorax. ASSESSMENT AND PLAN: 1. Coagulase-negative Staphylococcus sepsis. Only 1 of the 2 blood cultures have been positive. However, she had coagulase-negative staphylococcal sepsis, which was resistant to methicillin, just 10 days prior to current presentation, so I would treat it as true bacteremia. I will follow up with repeat blood culture and echocardiogram to rule out infective endocarditis. Potential sources of infection could be her stage II to stage III sacral decubitus ulcer, right arm peripherally-inserted central catheter line, which has been removed. There has also been gas in the sacroiliac joint. Orthopedic recommendations are pending. I will continue intravenous antibiotics, and have a discussion with Infectious Disease team to see if we need to change her vancomycin to daptomycin considering her urine output has become 0. 2. Anuria: Follow up repeat BMP. Change Vancomycin to daptomycin. I advised the nurse to recheck proper functioning of Hernandez catheter. 2. Atrial fibrillation with rapid ventricular rate because of sepsis. I will change intravenous diltiazem to oral diltiazem, and continue her digoxin and apixaban as per Cardiology recommendation. 3. Percutaneous endoscopic gastrostomy tube dysfunction. It was replaced by emergency room physician. I advised the nurse to aspirate and make sure it is functional, and start her on tube feeds. Dietitian has been consulted. 4. History of multiple cerebrovascular accidents and intracranial hemorrhage with baseline nonverbal and bedbound status. I will continue her on apixaban and atorvastatin. 5. Disposition. I will continue to monitor in intensive care unit. Her condition is still critical. TIME SPENT: More than 30 minutes of critical care time were spent in taking care of this patient. I will keep the family informed. cc: Delano Ramirez MD MTDD
[2019-03-25] MEDS: PROTONIX IV SCH ×2 (11:38→23:43)
[2019-03-25 13:36] LABS: AGAP 11; BUN 17 mg/dL (8-22); CALCIUM 8.3 mg/dL (8.8-10.2); CHLORIDE 99 mmol/L (98-107); COSMO 268; CREATININE 0.3 mg/dL (0.5-0.9); ESTIMATED GFR > 60; GLUCOSE 134 mg/dL (70-104); POTASSIUM 3.1 mmol/L (3.5-5.1); SODIUM 132 mmol/L (136-145); TCO2 22 mmol/L (25-35)
--- NOTE | 2019-03-25 15:32 | ECHO REPORT ---
ORDER DATE: 03/24/2019 INTERPRETING PHYSICIAN: Dr. Pratik Arenas ECHOCARDIOGRAPHIC MEASUREMENTS: 1. Interventricular septum: 1.2 cm. 2. Left ventricular posterior wall: 1.1 cm. 3. Diastolic diameter: 5.3 cm. 4. Left atrium: 3 cm. 5. Aorta: 2.1 cm. SUMMARY OF THE 2-DIMENSIONAL IMAGIN. Atrial fibrillation was noted. 2. Pulmonic valve was normal. 3. There is mild pulmonary regurgitation. 4. Aortic valve leaflets were trileaflet. 5. Tricuspid valve was normal. 6. Mitral valve was normal. 7. There is moderate tricuspid regurgitation. 8. Peak velocity across the tricuspid valve was 4 meters per second. 9. Pulmonary artery systolic pressure of 74 mmHg. 10. There is severe pulmonary arterial hypertension. 11. There is biatrial enlargement. 12. There is mild mitral regurgitation. 13. Mild tricuspid regurgitation. 14. Normal left ventricular cavity size. 15. Estimated ejection fraction of 60%. 16. There is no pericardial effusion. 17. Technically suboptimal study. cc: MD Delano Mares MD
--- NOTE | 2019-03-25 16:50 | INFECTIOUS DISEASE PROGRESS NO ---
DATE: 03/25/2019 The patient has been getting vancomycin and cefepime for Staphylococcus bacteremia and possible pneumonia. Although the patient's creatinine has not increased, the patient has become anuric. Dr. Ramirez and I have discussed the situation, and we think that vancomycin may be causing the anuria even though the creatinine is not going up. Therefore, we are going to stop vancomycin, and also I have stopped the Zosyn and put the patient on cefepime and a combination of daptomycin and Zyvox. The reason for the last 2 antibiotics, namely Zyvox and daptomycin, is that we need to have an antibiotic to treat the bloodstream infection, which would be daptomycin, since we do not want to use vancomycin, and unfortunately, daptomycin does not get into the lungs in high enough amount that it can treat pneumonia. Therefore, where I have added Zyvox. Also, the patient is on Lipitor, which can interact with daptomycin, so I have discontinued the patient's Lipitor also. I have discontinued Zosyn and instead put the patient on cefepime. cc: Car White MD
[2019-03-25] MEDS: TYLENOL PEG PRN (21:28)
[2019-03-25] MEDS ORDERED: NS 500 ML IV ONE (23:36)
--- NOTE | 2019-03-26 02:35 | ORTHOPAEDICS CONSULTATION ---
DATE: 03/25/2019 HISTORY OF PRESENT ILLNESS: Ms Rich is a 53-year-old female, who started having high fevers, was brought to the emergency department on 03/23/2019. She was admitted to the ICU. She has a history of cerebrovascular accident as well as intracranial hemorrhage and has declined in neurologic status. She was found to be tachypneic and febrile, so she was admitted to the ICU service. Orthopedics was asked to look at her to check out her sacroiliac joints, as there was some air that was found there on her CT scan. PAST MEDICAL HISTORY: Cerebrovascular accident, atrial fibrillation. She is bed bound. Has a PEG. PAST SURGICAL HISTORY: PEG placement. MEDICATIONS: Per the medical record. ALLERGIES: No known drug allergies. SOCIAL HISTORY: Unobtainable. REVIEW OF SYSTEMS: Unobtainable other than per the medical record. PHYSICAL EXAMINATION: General: Ms. Rich is lying in bed. She is nonverbal. She is morbidly obese. Head and neck: Normocephalic and atraumatic. Respirations: Seem normal today. Cardiovascular: She has a regular pulse. Abdomen: Obese. Back: She has no fluctuance. There is no masses palpated posteriorly. I do not see any swelling. There is no erythema. There is a central sacral decubitus. IMAGING: CT scan shows degenerative changes throughout the lumbar spine, but also sacroiliac area. ASSESSMENT: 1. Septic. 2. Bilateral degenerative changes sacroiliac joint. 3. Degenerative disk disease, lumbar spine. PLAN: Looking at Mrs. Rich CT scan, it looks like that air is more than likely from degenerative changes. I do not think they would be coming from bilateral septic joints. We mainly see this in degenerative changes, we see it throughout the lumbar spine as well a lot of times. Clinically, she does not seem to be symptomatic over the SI joints either. There is no fluctuance, erythema, or swelling over those areas. From an orthopedic standpoint, I do not think, at this point, there is infection in the SI joints. If further investigation was warranted, we would really need to ask Radiology to do a percutaneous aspiration of the SI joints to find out for sure. cc: En Chapman MD
[2019-03-26] MEDS: XOPENEX NEB INH SCH ×6 (03:54→22:47)
[2019-03-26] MEDS: ATROVENT NEB INH SCH ×6 (03:54→22:47)
[2019-03-26] MEDS: MAXIPIME 2 GM in NS 100 ML IV SCH ×2 (04:43→16:07)
[2019-03-26] MEDS: HUMULIN R SUBQ SCH ×4 (06:38→21:24)
[2019-03-26 06:46] LABS: BASO# 0.01 X1000 (0.0-0.2); BASO% 0.1 % (0.0-0.8); EOS# 0.11 X1000 (0.0-0.7); EOS% 1.1 % (0.0-10.0); HEMATOCRIT 28.1 % (37.0-47.0); HEMOGLOBIN 8.9 g/dL (12.0-16.0); LYMPH# 0.86 X1000 (1.2-3.4); MCH 31.1 PG (27-31); MCHC 31.7 g/dL (33-37); MCV 98.3 FL (81-99); MONO# 0.49 X1000 (0.11-0.59); MONO% 5.1 % (1.7-9.3); MPV 11.8 FL (7.4-10.4); NEUT# 8.13 X1000 (1.4-6.5); NEUT% 84.7 % (42.2-75.2); PLT 175 X1000 (130-400); RBC 2.86 XMIL (4.2-5.4); RDW 14.9 % (11.5-14.5)
[2019-03-26 07:01] LABS: AGAP 11; ALB/GLOB RATIO 0.9; ALBUMIN 2.5 g/dL (3.5-5.0); ALKALINE PHOSPHATASE 137 U/L (32-104); BUN 15 mg/dL (8-22); CALCIUM 8.5 mg/dL (8.8-10.2); CHLORIDE 104 mmol/L (98-107); COSMO 277; CREATININE 0.3 mg/dL (0.5-0.9); ESTIMATED GFR > 60; GLUCOSE 134 mg/dL (70-104); GOT 26 U/L (10-30); GPT 24 U/L (10-36); MAGNESIUM 1.9 mg/dL (1.5-2.7); PHOSPHORUS 1.5 mg/dL (2.7-4.5); POTASSIUM 3.3 mmol/L (3.5-5.1); PREALBUMIN 12.5 mg/dL (20-40); SODIUM 137 mmol/L (136-145); TCO2 22 mmol/L (25-35); TOTAL BILIRUBIN 0.43 mg/dL (0.20-1.00); TOTAL PROTEIN 5.2 g/dL (6.3-8.3)
[2019-03-26 07:58] LABS: BANDS 6 % (0-1); LYMPHS 10 % (21-51); MONO 2 % (1-9); SEGS 82 % (42-75)
[2019-03-26] MEDS: PULMICORT INH SCH ×2 (08:08→19:38)
[2019-03-26] MEDS: CUBICIN 700 MG in NS 100 ML IV SCH (09:29)
[2019-03-26] MEDS: LANOXIN GT SCH (09:30)
[2019-03-26] MEDS: ZYVOX 600 MG/D5W 600 MG/300 ML IVPB IV SCH (09:30)
[2019-03-26] MEDS: COLACE LIQUID GT SCH ×2 (09:30→21:03)
[2019-03-26] MEDS: CARDIZEM GT SCH ×3 (09:30→21:03)
[2019-03-26] MEDS: K-PHOS GT SCH ×3 (09:30→16:12)
[2019-03-26] MEDS: ELIQUIS GT SCH ×2 (09:31→21:03)
[2019-03-26] MEDS: TYLENOL PEG PRN ×2 (09:44→16:06)
[2019-03-26] MEDS: CULTURELLE FOR KIDS GT SCH (09:44)
[2019-03-26] MEDS: SANTYL OINT TOP SCH (09:56)
[2019-03-26] MEDS: TEFLARO 600 MG in NS 250 ML IV SCH ×2 (10:45→21:03)
--- NOTE | 2019-03-26 12:14 | Diag Imaging Result Doc PS360 ---
EXAM: CT ABDOMEN/PELVIS W/O CONTRAST 03/26/2019 HISTORY: Anuria. Evaluate for hydronephrosis. Bladder injur TECHNIQUE: This exam was performed using automated exposure control, adjustment of mA or kV according to patient size, and/or use of iterative reconstruction technique. COMMENT: There is ill-defined opacity in the lingula and patchy opacities in both lower lobes. The lower lobe opacities particularly on the right side are worse than on the previous study of 03/23/2019. There is a small amount of right pleural fluid which was not present previously. Considerable beam hardening artifact is present. There is no evidence of nephrolithiasis or hydronephrosis. There is a gastrostomy tube with its tip in the gastric body. There is oral contrast in the colon. The aorta is not distended. There is no evidence of appendicitis. There is some presacral edema. The urinary bladder is not distended and there is a Hernandez catheter in the bladder. There is generalized subcutaneous edema over the lower pelvis and flanks. There is no apparent free fluid. Severe degenerative changes are present in the hip joints. There is vacuum joint phenomenon in the sacroiliac joints and degenerative disc and facet changes are present in the lumbar spine particularly at L5-S1. IMPRESSION: No evidence of obstructive uropathy. Mild anasarca. Right pleural effusion and slightly worsened bibasilar atelectasis versus pneumonia. Electronically signed by Julio Cesar Guerrero 03/26/2019 12:11 PM
[2019-03-26] MEDS: PROTONIX IV SCH ×2 (13:02→23:19)
[2019-03-26] MEDS: NS 1,000 ML IV SCH ×2 (14:38→23:20)
--- NOTE | 2019-03-26 16:39 | PROGRESS NOTE ---
DATE: 03/26/2019 INTERVAL HISTORY: Ms. Rich continued to remain oliguric. She did have a drop in her blood count. She was mildly hypotensive. SUBJECTIVE: She is constantly moaning today, which she did not do yesterday. However, does not engage in conversation. She is not opening mouth to verbal command today. VITALS: Temperature of 97.7 degrees, pulse of 79, respiratory rate has been between 10 to 18, blood pressure 120/70. She is saturating 100% on 2 L nasal cannula. PHYSICAL EXAMINATION: Morbidly obese, not in acute distress. Oral cavity is dry. Air entry bilaterally equal. No wheeze, rhonchi, crackles. S1, S2 normal. No murmur, rub, or gallop. It is irregularly irregular.Abdomen: Soft. She keeps on moaning, so it is hard to assess the tenderness. Active bowel sounds. She has a urine catheter. She has a right- sided neck central line. IMAGING: No new imaging today. Chest x-ray yesterday for central line placement had right IJ central line without any evidence of pneumothorax. ASSESSMENT AND PLAN: 1. Coagulase-negative Staphylococcus sepsis. The source could be sacral decubitus ulcer. Continue intravenous daptomycin through central line. Follow up repeat culture results. 2. Suspected bilateral pneumonia. Her oxygen requirements are stable. Continue cefepime intravenous with intravenous ceftaroline as per Infectious Disease's recommendation. 3. Anuria. Her BUN and creatinine have been stable. I discussed with the nurse about changing the Hernandez catheter if it has not already been done. She has questionable tenderness on my examination. I will get a CT scan of the abdomen and pelvis to rule out any hydronephrosis or bladder injury. 4. Atrial fibrillation with rapid ventricular rate because of sepsis. Currently stable. Continue home diltiazem, digoxin, and apixaban. Cardiology team on board. 5. Percutaneous endoscopic gastrostomy tube dysfunction. It was repositioned in the ER. Currently functioning well. She had a bowel movement. 6. History of multiple cerebrovascular accidents and intracranial hemorrhage with bed-bound and nonverbal status. Continue apixaban and atorvastatin. 7. Disposition. Her condition is critical. More than 30 minutes of critical care time was spent in care of the patient. Plan of care discussed with nurse. I will keep family informed. ADDENDUM: I called Ms Marshall Rich and updated her about patient's clinical condition. I told her about Ms. Sinclair's critical condition, guarded prognosis and answered all of her questions. cc: Delano Ramirez MD MTDSilvina
--- NOTE | 2019-03-26 20:32 | INFECTIOUS DISEASE PROGRESS NO ---
DATE: 03/26/2019 PRESENT ILLNESS: The patient has a bacteremia which most likely originated from her PICC. Specifically the patient has cultured on 2 separate occasions a coagulase-negative Staph from the blood. The patient also may have a left lower lobe infiltrate suggestive of pneumonia, although atelectasis is a possibility also. MEDICATIONS: The patient is on cefepime which is day 3 of treatment with that antibiotic and daptomycin and Zyvox, both of which are day 1 of treatment with them. PHYSICAL EXAMINATION: Vital Signs: Temperature is 97.7 degrees, pulse 69, respirations 18, blood pressure 122/72. General: This is an obese, middle-aged female. She is in no acute distress. Head/eyes/ears/nose/throat: There is no drainage from the nose or ears. She did not open her mouth so I could not see what is going on in her oral cavity. Neck: She was not having any pain when she was moving her neck. Patient has an internal jugular venous catheter in place. The site is not bleeding or purulent. Lungs: Clear to auscultation. Cardiovascular: Heart rate is regular. Abdomen: Soft and nontender. The patient has a G-tube in place. The site is not purulent or bleeding. Neurologic: The patient's eyes are open. She only tracks with them a very short time. She does not respond to verbal stimuli. She does not have a tremor. Back: The patient has a wound in the sacral area. It is superficial. It is not getting any smaller or larger and there is no purulence or bleeding from it. LAB AND CHEST X-RAY: The patient's chest x-ray shows a left lower lobe infiltrate/atelectasis. The patient's CBC shows a white count of 9600, hemoglobin 8.9, platelet count 175,000. Creatinine 0.3. GFR is greater than 60. Alkaline phosphatase is 137. On the 23 of March, patient had 1 of 2 blood cultures which grew a coagulase-negative Staph. On the 25 of March, the patient had 1/2 blood cultures growing a gram-positive coccus which has not yet been identified. Urine is growing yeast. ASSESSMENT AND PLAN: The patient has a Staph bacteremia most likely which originated from her peripherally inserted central catheter. That has been removed and the patient is on daptomycin. The patient may have a left lower lobe pneumonia which could be secondary to aspiration. This is day 1 of treatment with daptomycin and Zyvox for it and day 3 of treatment with cefepime for it. I am going to go ahead and get a procalcitonin level which hopefully will help us differentiate whether there is an infiltrate or atelectasis in the lung. COMORBIDITIES: The patient lives in a senior care. She has had a stroke. She has atrial fibrillation. She also is obese. She has sleep apnea, diabetes mellitus, and dysphagia. cc: Car White MD
--- NOTE | 2019-03-26 21:02 | INFECTIOUS DISEASE PROGRESS NO ---
DATE: 03/26/2019 ADDENDUM: The patient is on Zyvox and gradually her white blood cell count, hemoglobin and platelets are decreasing. She is on daptomycin because she has had 2 separate times when she has grown coagulase-negative Staphylococcus. We did not want to use vancomycin, because even though her creatinine was normal her urine output has decreased; therefore, what I am going to do is discontinue Zyvox and put the patient on ceftaroline. Also I plan to continue daptomycin. The reason for using Zyvox or ceftaroline is that we want to have coverage for methicillin-resistant Staphylococcus aureus in case it is causing the patient's pneumonia. cc: Car White MD
[2019-03-27] MEDS: ATROVENT NEB INH SCH ×6 (03:08→22:51)
[2019-03-27] MEDS: XOPENEX NEB INH SCH ×6 (03:08→22:51)
[2019-03-27] MEDS: MAXIPIME 2 GM in NS 100 ML IV SCH ×2 (05:07→17:25)
[2019-03-27] MEDS: NS 1,000 ML IV SCH (05:17)
[2019-03-27] MEDS: HUMULIN R SUBQ SCH ×4 (05:59→20:23)
[2019-03-27 06:30] LABS: BASO# 0.01 X1000 (0.0-0.2); BASO% 0.1 % (0.0-0.8); EOS# 0.07 X1000 (0.0-0.7); HEMATOCRIT 30.2 % (37.0-47.0); HEMOGLOBIN 9.3 g/dL (12.0-16.0); IMM GRAN# 0.05 X1000 (0.0-0.04); IMM GRAN% 0.7 % (0.0-0.5); LYMPH# 0.96 X1000 (1.2-3.4); LYMPH% 13.2 % (20.5-51.1); MCH 29.8 PG (27-31); MCHC 30.8 g/dL (33-37); MCV 96.8 FL (81-99); MONO# 0.36 X1000 (0.11-0.59); MPV 10.7 FL (7.4-10.4); PLT 210 X1000 (130-400); RBC 3.12 XMIL (4.2-5.4); RDW 15.1 % (11.5-14.5); WBC 7.25 X1000 (4.8-10.8)
[2019-03-27 07:00] LABS: AGAP 11; ALB/GLOB RATIO 0.8; ALBUMIN 2.3 g/dL (3.5-5.0); ALKALINE PHOSPHATASE 142 U/L (32-104); BUN 13 mg/dL (8-22); CALCIUM 8.4 mg/dL (8.8-10.2); CHLORIDE 104 mmol/L (98-107); COSMO 275; CREATININE 0.2 mg/dL (0.5-0.9); ESTIMATED GFR > 60; GLUCOSE 119 mg/dL (70-104); GOT 16 U/L (10-30); GPT 15 U/L (10-36); MAGNESIUM 1.8 mg/dL (1.5-2.7); POTASSIUM 3.6 mmol/L (3.5-5.1); SODIUM 137 mmol/L (136-145); TCO2 22 mmol/L (25-35); TOTAL BILIRUBIN 0.38 mg/dL (0.20-1.00); TOTAL PROTEIN 5.1 g/dL (6.3-8.3)
--- NOTE | 2019-03-27 07:11 | Diag Imaging Result Doc PS360 ---
EXAM: CHEST-1 VIEW HISTORY: SOB TECHNIQUE: Single view COMPARISON: 03/24/2019 FINDINGS: Poor inspiratory effort. The heart is mildly prominent. No change in the right jugular line. The right-sided PICC line has been removed. Left basilar infiltrates or atelectasis. IMPRESSION: No interval improvement Electronically signed by Tee Rios 03/27/2019 7:09 AM
[2019-03-27] MEDS: PULMICORT INH SCH ×2 (08:07→18:59)
[2019-03-27] MEDS: ELIQUIS GT SCH ×2 (08:54→20:23)
[2019-03-27] MEDS: CULTURELLE FOR KIDS GT SCH (08:54)
[2019-03-27] MEDS: LANOXIN GT SCH (08:54)
[2019-03-27] MEDS: CARDIZEM GT SCH ×3 (08:54→20:23)
[2019-03-27] MEDS: TYLENOL PEG PRN (08:54)
[2019-03-27] MEDS: K-PHOS GT SCH ×3 (08:54→17:24)
[2019-03-27] MEDS: COLACE LIQUID GT SCH ×2 (08:57→20:23)
[2019-03-27] MEDS: TEFLARO 600 MG in NS 250 ML IV SCH ×2 (09:12→21:45)
[2019-03-27] MEDS: SANTYL OINT TOP SCH (09:15)
[2019-03-27] MEDS: CUBICIN 700 MG in NS 100 ML IV SCH (10:00)
[2019-03-27] MEDS: PROTONIX IV SCH (13:09)
--- NOTE | 2019-03-27 17:57 | EKG Report ---
Test Performed on : 03/27/2019 08:50:53 AM Test Reason : Follow up EKG. AFib Blood Pressure : / mmHG Vent. Rate : 107 BPM Atrial Rate : 117 BPM P-R Int : 000 ms QRS Dur : 088 ms QT Int : 418 ms P-R-T Axes : 000 014 056 degrees QTc Int : 558 ms Critical Test Result: Long QTc Atrial fibrillation. with rapid ventricular response. Nonspecific ST and T wave abnormality Prolonged QT Abnormal ECG When compared with ECG of 24-MAR-2019 06:30, QRS duration has increased Criteria for Anterior infarct are no longer present Criteria for Anterolateral infarct are no longer present Confirmed by Aaliyah BELTRAN, Kiran ([id number]) on 03/29/2019 8:26:51 AM
--- NOTE | 2019-03-27 18:04 | PROGRESS NOTE ---
DATE: 03/27/2019 INTERVAL HISTORY: The patient's urine catheter was leaking. She had 250 mL of urine output overnight, but considering she is positive 9 L, her intravenous fluids were discontinued in the morning time and her urine catheter has been removed. SUBJECTIVE: The patient is nonverbal, does not participate in the clinical encounter meaningfully. VITALS: Afebrile with temperature of 97.6 degrees, pulse 92, respiratory rate 11, blood pressure 105/62. She is saturating 99% on room air. PHYSICAL EXAMINATION: Not in acute distress. She is constantly moaning though. Oral cavity is dry. Air entry bilaterally equal. No wheeze, rhonchi, or crackles. S1, S2 normal, regular. No murmur, rub, or gallop.Abdomen: Obese, soft, nontender. No lower extremity edema. She is alert, but not oriented and nonverbal. She had a bowel movement. LABORATORY AND DIAGNOSTIC DATA: One of the two blood cultures again is growing coagulase-negative staphylococci. No leukocytosis. Normocytic anemia, normal platelet count. Her electrolytes are acceptable with adequate BUN and creatinine. Repeat blood cultures have been drawn. Echocardiogram performed had severe pulmonary hypertension, biatrial enlargement, ejection fraction of 60%, which was technically suboptimal study though. Orthopedic team had seen the patient and suggested that her gas in sacroiliac joint was likely related to degenerative changes. ASSESSMENT AND PLAN: 1. Coagulase-negative Staphylococcus sepsis. Sources could be sacral decubitus ulcer versus peripherally inserted central catheter line on the right side which has been removed. Continue intravenous daptomycin, intravenous cefepime, and intravenous ceftaroline, as per Infectious Disease recommendation for bilateral lower lobe pneumonia. Her chest x-ray today morning suggests no interval improvement and had poor inspiratory effort. Infectious Disease team on board. 2. Anuria. It could be related to malfunctioning Hernandez catheter since it was reported she had leaking of urine around her Hernandez catheter. I will stop intravenous fluids considering she has been positive 8 to 9 L and remove Hernandez catheter to give her a break. 3. Atrial fibrillation with rapid ventricular rate on presentation because of sepsis. Currently well controlled. Follow up EKG. Continue home diltiazem, digoxin, and apixaban. I would appreciate Cardiology's recommendation if she could be a candidate for transesophageal echocardiogram considering persistent bacteremia. 4. History of multiple cerebrovascular accidents and intracranial hemorrhage with bed-bound, nonverbal status, status post percutaneous endoscopic gastrostomy tube. Continue atorvastatin, apixaban, and percutaneous endoscopic gastrostomy tube feeding. 5. Disposition. Ms. Rich' condition is critical considering persistent sepsis. However, she appears to have stabilized. In the next 24 hours, I will consider transferring her out to [facility]. Yesterday, I had a detailed discussion of plan of care with her sister and had answered all of her questions. cc: Delano Ramirez MD
[2019-03-28] MEDS: PROTONIX IV SCH (00:15)
[2019-03-28] MEDS: ATROVENT NEB INH SCH (03:15)
[2019-03-28] MEDS: XOPENEX NEB INH SCH (03:15)
[2019-03-28] MEDS: MAXIPIME 2 GM in NS 100 ML IV SCH ×2 (05:31→16:29)
[2019-03-28 06:13] LABS: BASO# 0.01 X1000 (0.0-0.2); BASO% 0.1 % (0.0-0.8); EOS# 0.17 X1000 (0.0-0.7); EOS% 2.2 % (0.0-10.0); HEMATOCRIT 27.2 % (37.0-47.0); HEMOGLOBIN 8.4 g/dL (12.0-16.0); IMM GRAN# 0.05 X1000 (0.0-0.04); IMM GRAN% 0.6 % (0.0-0.5); LYMPH# 1.66 X1000 (1.2-3.4); LYMPH% 21.2 % (20.5-51.1); MCH 30.3 PG (27-31); MCHC 30.9 g/dL (33-37); MCV 98.2 FL (81-99); MONO# 0.49 X1000 (0.11-0.59); MONO% 6.3 % (1.7-9.3); MPV 10.6 FL (7.4-10.4); NEUT# 5.46 X1000 (1.4-6.5); NEUT% 69.6 % (42.2-75.2); PLT 223 X1000 (130-400); RBC 2.77 XMIL (4.2-5.4); RDW 15.5 % (11.5-14.5); WBC 7.84 X1000 (4.8-10.8)
[2019-03-28] MEDS: HUMULIN R SUBQ SCH ×4 (06:45→20:39)
[2019-03-28 06:58] LABS: AGAP 10; ALB/GLOB RATIO 0.8; ALBUMIN 2.2 g/dL (3.5-5.0); ALKALINE PHOSPHATASE 129 U/L (32-104); BUN 13 mg/dL (8-22); CALCIUM 8.4 mg/dL (8.8-10.2); CHLORIDE 104 mmol/L (98-107); COSMO 277; CREATININE 0.2 mg/dL (0.5-0.9); ESTIMATED GFR > 60; GLUCOSE 112 mg/dL (70-104); GOT 14 U/L (10-30); GPT 11 U/L (10-36); MAGNESIUM 1.7 mg/dL (1.5-2.7); POTASSIUM 3.6 mmol/L (3.5-5.1); SODIUM 138 mmol/L (136-145); TCO2 24 mmol/L (25-35); TOTAL BILIRUBIN 0.33 mg/dL (0.20-1.00); TOTAL PROTEIN 4.9 g/dL (6.3-8.3)
[2019-03-28] MEDS: XOPENEX NEB INH PRN ×3 (09:00→22:45)
[2019-03-28] MEDS: ATROVENT NEB INH PRN ×3 (09:00→22:45)
[2019-03-28] MEDS: LANOXIN GT SCH (09:11)
[2019-03-28] MEDS: TEFLARO 600 MG in NS 250 ML IV SCH (09:11)
[2019-03-28] MEDS: ELIQUIS GT SCH ×2 (09:11→20:03)
[2019-03-28] MEDS: CULTURELLE FOR KIDS GT SCH (09:11)
[2019-03-28] MEDS: TYLENOL PEG PRN ×2 (09:11→15:51)
[2019-03-28] MEDS: CARDIZEM GT SCH ×3 (09:11→20:03)
[2019-03-28] MEDS: SANTYL OINT TOP SCH (09:12)
[2019-03-28] MEDS: COLACE LIQUID GT SCH ×2 (09:12→20:38)
--- NOTE | 2019-03-28 09:29 | PROGRESS NOTE ---
DATE: 03/28/2019 INTERVAL HISTORY: No acute events overnight. Her blood cultures is persistently positive. Ms. Rich keeps on moaning and groaning. She has not had any fever episodes. She is on cefepime and ceftaroline and daptomycin. SUBJECTIVE: She is not responding to commands meaningfully. She does open eyes to strong verbal stimuli. VITALS: Temperature 98.1 degrees, pulse 76, respiratory rate 18, blood pressure 100/58. Her mean arterial pressure has been in 60s most and 98% on room air. PHYSICAL EXAMINATION: General: Morbidly obese, not in acute distress. HEENT: Oral cavity is moist. Lungs: Air entry bilaterally equal. No wheeze or rhonchi. She has poor inspiration and shallow inspiration, so the examination is limited. Abdomen: Obese, soft, nontender. Extremities: No lower extremity edema. : She does not have urine catheter. Skin: She has about stage II to stage III geographic pattern ulcer over her sacrum of about 10 to 15 cm diameter. Neurologic: She is drowsy but arousable. She appears tachypneic when she is woken up. Her pupils are bilaterally equal and reacting to light. She is moving pupils both sides of the midline. She is wincing and withdrawing to painful stimuli, both lower extremities. Input and Output: Suggest we remove the urine catheter. LABS: Suggestive of normal normocytic anemia, normal platelet count. She does have normal electrolytes, normal kidney function. Microbiology HAS blood cultures persistently positive. IMAGING: Chest x-ray suggests no interval improvement. ASSESSMENT AND PLAN: 1. Coagulase-negative Staphylococcus sepsis, potential sources could be sacral decubitus ulcer versus right-sided PICC line which was removed on admission. Continue intravenous daptomycin, intravenous ceftaroline, intravenous cefepime, considering she also has suspected bilateral lower lobe pneumonia. Infectious Disease Team on board. I will appreciate Cardiology recommendation about need for transesophageal echocardiogram considering her persistent bacteremia. Nuclear medicine WBC scan has also been pending to rule out any occult infection. 2. Anuria, now resolved. 3. Atrial fibrillation with rapid ventricular rate, likely because of sepsis, currently in acceptable range. She is still in atrial fibrillation. Continue home diltiazem, digoxin, and apixaban. 4. History of multiple CVA with intracranial hemorrhage, bed-bound and nonverbal status, status post PEG tube. Continue atorvastatin, apixaban, and PEG tube feeding. 5. Disposition. Ms. Rich' condition remains critical due to persistent bacteremia. I will continue to monitor her inside the ICU for persistent sepsis. I will try and reach out to her son today. TIME SPENT: More than 30 minutes of critical care time was spent in the care of this patient. Plan of care extensively discussed with the nursing team. cc: Delano Ramirez MD
[2019-03-28] MEDS: CUBICIN 700 MG in NS 100 ML IV SCH (10:15)
[2019-03-28] MEDS ORDERED: VANCOMYCIN IV PER PHARMACY MISC SCH (10:30)
[2019-03-28] MEDS: VANCOMYCIN 2 GM in NS 500 ML IV SCH ×2 (12:07→23:19)
--- NOTE | 2019-03-28 14:04 | INFECTIOUS DISEASE PROGRESS NO ---
DATE: 03/28/2019 PRESENT ILLNESS: The patient on 3 separate occasions has had 1 of 2 blood cultures grow a coagulase-negative Staph. Therefore, I think the patient does truly have a coagulase-negative Staph bacteremia. Her PICC was removed but she still continues to have positive blood cultures. I think that Dr. Ramirez's suggestion that the patient could have endocarditis is a very good one, and I agree with him ordering a transesophageal echocardiogram. The patient also on chest x-ray has a left basilar infiltrate and/or atelectasis. MEDICATIONS: I have discontinued ceftaroline and daptomycin and instead have put the patient back on cefepime and restarted vancomycin also. Also, I have ordered a procalcitonin level. PHYSICAL EXAMINATION: Vital Signs: Temperature is 98.1 degrees, pulse 78, respirations 16, blood pressure 100/58. General: This is an ill-appearing middle-aged female. She is in no acute distress. Head/eyes/ears/nose/throat: No drainage noted from the nose or ears. She did track with her eyes, but did not follow any other verbal requests. Neck: No stiffness. Lungs: Clear to auscultation. Cardiovascular: The patient's heart rate was irregular. She is in atrial fibrillation. Abdomen: Soft and nontender. The patient has a G-tube in place, which does not have any bleeding coming from it or any purulence from the tube site. Neurologic: The patient did track with her eyes but she did not move her extremities when I asked her to. She does not have a tremor. Back: The patient's sacral decubitus ulcer is superficial. It is not purulent and it is not getting any bigger. LAB AND X-RAY: The patient's CBC shows a white count of 7840, hemoglobin 8.4, and platelet count 223,000. Creatinine is 0.2. GFR is greater than 60. Alkaline phosphatase is 129. The patient on the following dates has had 1 of 2 blood cultures growing gram-positive cocci. Those dates are March 23, March 25, and March 27. The patient's chest x-ray shows a left basilar infiltrate versus atelectasis. ASSESSMENT AND PLAN: As mentioned above, the patient does have a coagulase-negative Staph bacteremia and I agree with Dr. Ramirez it could be endocarditis. She did have a transthoracic echocardiogram that did not show endocarditis but I think Dr. Ramirez's idea of ordering a transesophageal echocardiogram is good and it may be in the earlier echocardiogram, there was not endocarditis or if there was, it was not picked up on a transesophageal study. I mentioned earlier I stopped the ceftaroline and put the patient on cefepime and IV vancomycin and I have also ordered a procalcitonin level. COMORBIDITIES: The patient unfortunately had a stroke on October 17 and has been bedridden since that time and noncommunicative. The patient also has a history of atrial fibrillation, heart failure, hypertension, obesity, obstructive sleep apnea, and actually the patient has had 2 strokes this year. She also has asthma and dysphagia secondary to the stroke. She is bedbound. She also has pressure sores and a PEG tube. cc: Car White MD
--- NOTE | 2019-03-28 19:31 | PROGRESS NOTE ---
DATE: 03/28/2019 SUBJECTIVE: Transesophageal echocardiography requested per Dr. Ramirez and Dr. White of Infectious Diseases. The patient is more interactive when I see here. She is unable to verbalize any complaints. OBJECTIVE: Vital signs: Blood pressure ranges from 90/65 to 101/66. Heart rate 75 and irregular with ECG monitor showing atrial fibrillation with controlled rate. Neck: There is no significant jugular venous distention. Chest: Auscultation of the chest reveals scattered expiratory rhonchi. Cardiac: Reveals a irregular rate and rhythm without appreciable murmur or gallop. Extremities: Without edema. LABORATORY DATA: Includes white blood cell count of 7.4, hematocrit 27.2, hemoglobin 8.4, platelet count 223,000. Sodium 138, potassium 3.6, chloride 104, carbon dioxide 24, BUN 13, creatinine 0.2. IMPRESSION: 1. Chronic atrial fibrillation. Heart rate control. 2. Current hospitalization precipitated by fever leukocytosis with lab data demonstrating persistent bacteremia. Transesophageal echocardiography requested by infectious disease service and primary medical team. 3. Status post recurrent cerebrovascular accidents with significant debility. 4. Hypertension. 5. Decubitus ulcer in setting of bed-bound state. RECOMMENDATIONS: Transesophageal echocardiogram recommended by infectious disease service and hospitalist service. The nature of the procedure and potential hazards was discussed with the patient's family at the bedside and they are in agreement to proceed. cc: Juanpablo Barbosa MD
[2019-03-29] MEDS: ATROVENT NEB INH PRN ×3 (03:07→11:29)
[2019-03-29] MEDS: XOPENEX NEB INH PRN ×3 (03:07→11:29)
[2019-03-29] MEDS: MAXIPIME 2 GM in NS 100 ML IV SCH ×2 (04:33→16:09)
[2019-03-29] MEDS: ATROVENT NEB INH SCH (06:29)
[2019-03-29] MEDS: PULMICORT INH SCH (06:29)
[2019-03-29] MEDS: XOPENEX NEB INH SCH (06:30)
[2019-03-29] MEDS: HUMULIN R SUBQ SCH ×4 (06:36→20:25)
--- NOTE | 2019-03-29 08:04 | INFECTIOUS DISEASE PROGRESS NO ---
DATE: 03/29/2019 PRESENT ILLNESS: The patient has a staphylococcus bacteremia. The patient may have developed, on top of that, an endocarditis. The patient also may have a left basilar pneumonia. MEDICATIONS: Yesterday, I restarted the patient on cefepime and vancomycin. This is day #1 of treatment with both of those agents. PHYSICAL EXAMINATION: Vital Signs: Temperature is 98.1 degrees, pulse 98, respirations 21, blood pressure is 124/77. General: This is an ill-appearing, middle-aged female. She is in no acute distress. Head, Eyes, Ears, Nose, and Throat: No drainage is noted from the nose or ears. Neck: No stiffness to movement of the neck. Cardiovascular: Heart rate is regular. Abdomen: Soft and nontender. The patient has a G-tube which does not have any purulence around it. Neurologic: The patient did respond to verbal stimuli by looking at me when I talked to her but she did not move her extremities when I requested her to. She does not have a tremor. Back: The patient's sacral decubitus is superficial. The patient's sacral decubitus is about the same size. It is fairly superficial. There is no purulence, odor, or gangrenous tissue. The tissue is a pinkish color and then there is some fatty tissue present in it also. LAB AND X-RAY: So far today, there is not any radiographic study or laboratory study back with the exception that the blood culture from 2 days ago is growing gram-positive cocci. ASSESSMENT AND PLAN: The patient has staphylococcus bacteremia and could have endocarditis. Dr. Barbosa saw the patient yesterday and he is going to proceed with a transesophageal echocardiogram. I have ordered a procalcitonin level and this should help to determine if the patient's lung lesion is due to atelectasis or a pneumonia. COMORBIDITIES: The patient has been bedridden since she had a stroke on October 17 of this year. She also has atrial fibrillation, heart failure, hypertension, obesity, and obstructive sleep apnea. The patient also had another stroke this year so she has had two so far. She also has asthma and since her stroke, she has dysphagia. The patient is bedbound. cc: Car White MD
[2019-03-29] MEDS: CULTURELLE FOR KIDS GT SCH (08:34)
[2019-03-29] MEDS: CARDIZEM GT SCH ×3 (08:34→20:14)
[2019-03-29] MEDS: LANOXIN GT SCH (08:34)
[2019-03-29] MEDS: ELIQUIS GT SCH ×2 (08:34→20:14)
[2019-03-29] MEDS: SANTYL OINT TOP SCH (08:34)
[2019-03-29] MEDS: COLACE LIQUID GT SCH ×2 (08:34→20:13)
--- NOTE | 2019-03-29 08:51 | PROGRESS NOTE ---
DATE: 03/29/2019 INTERVAL HISTORY: No acute events overnight. Cardiology team is planning transesophageal echocardiogram. SUBJECTIVE: Ms. Rich does not appear in any acute distress. She was resting quietly when I entered the room. She keeps her eyes open. She tracks on strong verbal stimuli. VITALS: Temperature of 98.1 degrees, pulse 98, respiratory 21, blood pressure 104/77, saturating 100% on 2 L nasal cannula. PHYSICAL EXAMINATION: General: Ms. Rich does not appear in any acute distress. HEENT: She has poor oral hygiene and missing teeth. Lungs: Air entry bilaterally equal. No wheeze, rhonchi, or crackles. Cardiovascular: S1, S2 normal, appears regular at the moment. No murmur, rub, or gallop. Abdomen: Soft, nontender. Extremities: No lower extremity edema. : She does not have a urine catheter. Skin: She has a central line on the right internal jugular. Neurologic: She is alert. She is nonverbal. She is withdrawing to painful stimuli in bilateral lower extremities. She winces to painful stimuli in left upper extremity, but does not withdraw. She does not have any response to painful stimuli on the right upper extremity. Input and output says she has had bowel movements. LABS: Suggestive of no CBC or BMP today. MICROBIOLOGY: Blood cultures are persistently positive, and her antibiotics were changed yesterday. IMAGING: No new imaging. ASSESSMENT AND PLAN: 1. Coagulase-negative Staphylococcus sepsis. Potential sources could be sacral decubitus ulcer versus right-sided PICC line versus an occult abscess. Considering persistent bacteremia, she is to undergo transesophageal echocardiogram on 03/29/2019. She also has a small bilateral lower lobe pneumonia. Continue intravenous vancomycin and intravenous cefepime as per Infectious Disease recommendation. Repeat blood cultures have been ordered. I will follow up nuclear medicine WBC scan to rule out occult abscess. 2. Atrial fibrillation with rapid ventricular rate on presentation, likely because of sepsis, now currently rate controlled. Continue home diltiazem, digoxin, and apixaban. 3. Anuria, now resolved. 4. History of multiple cerebrovascular accidents with intracranial hemorrhage since September 2018 with bed-bound and nonverbal status. Status post PEG tube and sacral decubitus ulcer stage 2. Continue home atorvastatin, apixaban, PEG tube feeding and local wound care. DISPOSITION: Ms. Rich' condition is critical due to persistent bacteremia. However, she is hemodynamically stable. If she tolerates the JENNIFER well, my plan is to transfer her to [facility]. Previously I had kept the patient's sister informed. I will again keep her in the loop. SUMMARY: In summary, Ms. Rich is a 53-year-old -[place] lady who was initially admitted inside the hospital between March 05 and March 12 for methicillin- resistant coagulase- negative Staphylococcus bacteremia which was thought to be originating from sacral decubitus ulcer and she was discharged on intravenous vancomycin through a right arm PICC line on March 12. However, she came back on 03/23/2019 with fever of 105 degree Fahrenheit and had recurrent coagulase-negative Staphylococcal bacteremia, so her right arm PICC line was removed and she was continued on intravenous antibiotic. Considering her persistent bacteremia, JENNIFER and tagged WBC scan have been ordered. Her code status is full and palliative services on board. I updated patient's brother at bedside about her critical condition and poor prognosis. Her brother was expecting her to get better and start talking and walking again. I informed him that considering her current clinical condition, it is going to be extremely challenging and perhaps less likely. I answered all of his questions. cc: Delano Ramirez MD MTDD
[2019-03-29] MEDS: VANCOMYCIN 2 GM in NS 500 ML IV SCH (11:48)
[2019-03-29] MEDS: TYLENOL PEG PRN (20:14)
[2019-03-30] MEDS: VANCOMYCIN 2 GM in NS 500 ML IV SCH ×2 (00:54→19:53)
[2019-03-30] MEDS: MAXIPIME 2 GM in NS 100 ML IV SCH ×2 (04:44→16:02)
[2019-03-30] MEDS: HUMULIN R SUBQ SCH ×4 (06:35→20:26)
[2019-03-30 06:54] LABS: BASO# 0.02 X1000 (0.0-0.2); BASO% 0.3 % (0.0-0.8); EOS# 0.27 X1000 (0.0-0.7); EOS% 3.7 % (0.0-10.0); HEMATOCRIT 30.3 % (37.0-47.0); HEMOGLOBIN 9.1 g/dL (12.0-16.0); IMM GRAN% 1.4 % (0.0-0.5); LYMPH# 1.68 X1000 (1.2-3.4); LYMPH% 23.2 % (20.5-51.1); MONO# 0.68 X1000 (0.11-0.59); MONO% 9.4 % (1.7-9.3); MPV 10.6 FL (7.4-10.4); NEUT# 4.49 X1000 (1.4-6.5); PLT 300 X1000 (130-400); RBC 3.03 XMIL (4.2-5.4); RDW 16.1 % (11.5-14.5); WBC 7.24 X1000 (4.8-10.8)
[2019-03-30 07:21] LABS: AGAP 9; BUN 9 mg/dL (8-22); CALCIUM 9.1 mg/dL (8.8-10.2); CHLORIDE 102 mmol/L (98-107); COSMO 273; CREATININE 0.2 mg/dL (0.5-0.9); ESTIMATED GFR > 60; GLUCOSE 82 mg/dL (70-104); MAGNESIUM 1.6 mg/dL (1.5-2.7); SODIUM 138 mmol/L (136-145); TCO2 27 mmol/L (25-35)
[2019-03-30] MEDS: CARDIZEM GT SCH ×3 (08:19→20:04)
[2019-03-30] MEDS: ELIQUIS GT SCH ×2 (08:19→20:04)
[2019-03-30] MEDS: LANOXIN GT SCH (08:19)
[2019-03-30] MEDS: CULTURELLE FOR KIDS GT SCH (08:19)
[2019-03-30] MEDS: SANTYL OINT TOP SCH (08:19)
[2019-03-30] MEDS: COLACE LIQUID GT SCH ×2 (08:19→20:04)
[2019-03-30] MEDS ORDERED: MAGNESIUM SULFATE 2 GM/S.W.I. 2 GM/50 ML IVPB IV ONE (08:47)
[2019-03-30] MEDS: XOPENEX NEB INH PRN ×2 (10:04→15:30)
[2019-03-30] MEDS: ATROVENT NEB INH PRN ×2 (10:04→15:30)
--- NOTE | 2019-03-30 14:07 | INFECTIOUS DISEASE PROGRESS NO ---
DATE: 03/30/2019 PRESENT ILLNESS: The patient has a Staphylococcus bacteremia. This may have developed further into endocarditis. The patient also may have a basilar pneumonia. MEDICATIONS: This is day 2 of treatment with the combination of cefepime and vancomycin. PHYSICAL EXAMINATION: Vital Signs: Temperature is 97.9 degrees, pulse 79, respirations 21, blood pressure 118/76. General: This is an ill-appearing, morbidly obese, middle-aged female. She is in no acute distress. Head/eyes/ears/nose/throat: No drainage noted from the nose or the ears. I was unable to get a good view of her oral cavity. Neck: No pain with passive motion of the neck. Lungs: Clear to auscultation. Cardiovascular: Heart rate is irregular and rapid. Abdomen: Soft and nontender. A G-tube is in place. There is no purulent drainage or bleeding around the tube site. Neurologic: When I first walked up to the patient's bed, she looked at me, but after that, she did not look at me when I asked her to look. She also did not move her legs and arms when I requested her to do it. Back: The patient's sacral decubitus ulcer remains the same. It is shallow. It has some pinkish tissue and some fatty tissue present, but no erythema or purulence. The decubitus ulcer has not changed much in size. LAB AND X-RAY: There is no new radiographic study. The blood cultures were drawn on the patient recently and 1 of 2 of them is positive for Staph hominis. Creatinine is 0.2. GFR is greater than 60. CBC shows a white count of 7240, hemoglobin 9.1, platelet count 300,000. ASSESSMENT AND PLAN: The patient does have a bacteremia and it may be caused by endocarditis. The patient also may have pneumonia and Staph bacteremia. My plan would be to continue vancomycin and cefepime pending further studies such as the transesophageal echocardiogram and the procalcitonin level which are going to be done soon and their result is pending. COMORBIDITIES: Patient is obese. She had a stroke in September of this year. She has atrial fibrillation, heart failure, hypertension, obesity, and sleep apnea. Patient is bedbound. cc: Car White MD
--- NOTE | 2019-03-30 23:43 | ECHO REPORT ---
ORDER DATE: 03/30/2019 SUMMARY: After intravenous sedation with propofol fall per Anesthesiology, I passed the transesophageal echocardiography probe into the patient's esophagus without difficulty. Transesophageal echocardiography was subsequently performed and demonstrated: 1. The aortic valve is trileaflet and opens normally on 2-dimensional images. Mitral, tricuspid and pulmonic valves are without evidence of structural abnormality with very mild mitral regurgitation, and trace tricuspid regurgitation. There is no evidence of valvular vegetation. The aortic root is normal in size. 2. Normal left ventricular dimension is demonstrated. The estimated left ventricular ejection fraction appears to be at least 60%. No regional wall motion abnormalities are evident. The left atrium is mildly enlarged. The right atrium is mildly enlarged. The right ventricle is normal in size with preserved right ventricular systolic function. All 4 cardiac chambers and left atrial appendage appear free of intracardiac thrombus. 3. Interatrial septum appears intact, without evidence of interatrial shunting on color Doppler. Intravenous agitated saline contrast study reveals no evidence of [id number] intracardiac shunt. 4. No pericardial effusion. 5. Descending thoracic aorta appears free of atherosclerotic plaque. cc: MD Kristan Quigley PA
[2019-03-31] MEDS: MAXIPIME 2 GM in NS 100 ML IV SCH ×2 (04:01→16:04)
--- NOTE | 2019-03-31 04:02 | PROGRESS NOTE ---
DATE: 03/30/2019 SUBJECTIVE: The patient is resting comfortably. No acute events noted overnight. OBJECTIVE: Vital signs: Temperature 97.7 degrees, blood pressure 138/88, heart rate 92, respirations 15, O2 saturation 99% on 2 L nasal cannula. Intake 1.9 L, output 1.3 L. General: This is a morbidly obese female lying in bed, in no acute distress. Heart: S1, S2 normal. Irregularly irregular rhythm. Lungs: Equal air entry bilaterally. No wheezing. No rales. Abdomen: Positive bowel sounds. Soft, obese, nontender. Extremities: Trace pedal edema bilaterally. Neuro: The patient is awake. LABS: White blood cell count 7.2, hemoglobin 9.1, hematocrit 30, platelets 300,000. Sodium 138, potassium 4, chloride 102, CO2 of 27, BUN 9, creatinine 0.2. Glucose 94. ASSESSMENT AND PLAN: 1. Bacteremia secondary to coagulase-negative Staphylococcus. The patient underwent a transesophageal echocardiogram today, the report is currently pending. We will continue with antibiotic therapy as directed by Dr. White. 2. Atrial fibrillation. Continue on digoxin, Cardizem and Eliquis via the G-tube. 3. Morbid obesity. Aware. 4. Pneumonia. Continue with antibiotics, bronchodilator therapy, and supplemental oxygen. 5. History of multiple cerebrovascular accidents with hemiplegia. Aware. 6. Stage II sacral decubitus ulcer. Continue wound care as directed. 7. Nutrition. Continue with PEG tube feeds. cc: Cassie Moise MD
[2019-03-31] MEDS: HUMULIN R SUBQ SCH ×4 (07:14→21:39)
[2019-03-31] MEDS: CULTURELLE FOR KIDS GT SCH (08:00)
[2019-03-31] MEDS: LANOXIN GT SCH (08:00)
[2019-03-31] MEDS: ELIQUIS GT SCH ×2 (08:00→21:21)
[2019-03-31] MEDS: CARDIZEM GT SCH ×3 (08:00→21:20)
[2019-03-31] MEDS: COLACE LIQUID GT SCH ×2 (09:29→21:20)
[2019-03-31] MEDS: TYLENOL PEG PRN (09:46)
[2019-03-31 10:23] LABS: BASO# 0.03 X1000 (0.0-0.2); BASO% 0.5 % (0.0-0.8); EOS# 0.15 X1000 (0.0-0.7); EOS% 2.3 % (0.0-10.0); HEMATOCRIT 30.2 % (37.0-47.0); HEMOGLOBIN 9.1 g/dL (12.0-16.0); IMM GRAN# 0.09 X1000 (0.0-0.04); IMM GRAN% 1.4 % (0.0-0.5); LYMPH# 1.39 X1000 (1.2-3.4); LYMPH% 21.2 % (20.5-51.1); MCH 30.1 PG (27-31); MCHC 30.1 g/dL (33-37); MONO# 0.79 X1000 (0.11-0.59); MPV 9.9 FL (7.4-10.4); NEUT# 4.12 X1000 (1.4-6.5); NEUT% 62.6 % (42.2-75.2); PLT 316 X1000 (130-400); RBC 3.02 XMIL (4.2-5.4); RDW 16.2 % (11.5-14.5); WBC 6.57 X1000 (4.8-10.8)
[2019-03-31] MEDS: SANTYL OINT TOP SCH (10:50)
[2019-03-31 11:47] LABS: AGAP 8; BUN 8 mg/dL (8-22); CALCIUM 8.8 mg/dL (8.8-10.2); CHLORIDE 100 mmol/L (98-107); COSMO 273; CREATININE 0.2 mg/dL (0.5-0.9); ESTIMATED GFR > 60; GLUCOSE 115 mg/dL (70-104); MAGNESIUM 1.7 mg/dL (1.5-2.7); PHOSPHORUS 3.6 mg/dL (2.7-4.5); POTASSIUM 4.7 mmol/L (3.5-5.1); SODIUM 137 mmol/L (136-145); TCO2 29 mmol/L (25-35)
--- NOTE | 2019-03-31 13:37 | Diag Imaging Result Doc PS360 ---
EXAM: CHEST-PORTABLE INDICATION: pneumonia TECHNIQUE: One view COMPARISON: 03/27/2019 FINDINGS: The right IJ line is in stable position. The vague opacity at the left lung base appears to have grossly resolved. No new consolidation is identified. Cardiac silhouette is stable. IMPRESSION: Gross resolution of the mild opacity at the left lung base. Essentially stable chest, otherwise. Electronically signed by Michael Garcia 03/31/2019 1:35 PM
[2019-03-31] MEDS: VANCOMYCIN 2 GM in NS 500 ML IV SCH (13:46)
--- NOTE | 2019-03-31 14:04 | Diag Imaging Result Doc PS360 ---
EXAM: INDIUM WBC SCAN INDICATION: Rule out occult abscess TECHNIQUE: 489 uCi of indium-111 was used for white blood cell tagging immediate and 24 hour delayed images were obtained. COMPARISON: None. FINDINGS: Physiologic splenic and hepatic uptake is noted. Normal low level diffuse marrow uptake is noted. There is slight diffuse increased uptake associated with both lungs. Although this can be associated with pneumonia, it is nonspecific and can be simply due to release of cytokines which causes activation of leukocytes at the pulmonary vascular endothelium. No focal increased uptake is identified involving the chest, abdomen, or pelvis to indicate abscess. IMPRESSION: 1.Mild diffuse increased uptake associated with both lungs. Please see above discussion. 2.No focal increased uptake identified that would indicate abscess. Electronically signed by Michael Garcia 03/31/2019 2:02 PM
--- NOTE | 2019-03-31 18:25 | INFECTIOUS DISEASE PROGRESS NO ---
DATE: 03/31/2019 PRESENT ILLNESS: Ms. Rich is being treated for a Staph hominis bacteremia as well as a possible pneumonia. She also has a decubitus ulcer to her sacrum. MEDICATIONS: Today is day 3 of treatment with cefepime 2 g IV every 12 hours and IV vancomycin per pharmacy dosing. PHYSICAL EXAMINATION: Vital Signs: Temperature is 97.8 degrees, pulse rate 94, respiratory rate 18, blood pressure 114/75, O2 saturation is 97% on room air. General: This is a morbidly obese, chronically ill-appearing, middle-aged female. She is lying in the bed, currently in no acute distress. HEENT: Oral mucous membranes are pink and moist. Conjunctivae are pale. Cardiovascular: Irregularly irregular with atrial fibrillation on the monitor. Respiratory: Lung sounds are bilaterally clear to auscultation, diminished in the bases. No work of breathing is noted. Abdomen: Soft, obese, and nontender. Bowel sounds are active. There is a PEG tube in place. That site is without edema, erythema, or drainage. She is receiving tube feedings. Integumentary: Skin is warm and dry. There is a decubitus ulcer to her sacrum which is not visualized at this time. Neurologic: She is drowsy and lethargic, but arousable and did make eye contact, but not following commands. There is some hemiplegia. LABORATORY AND X-RAY: Today, her white count is 6.57, hemoglobin 9.1, platelet count 316,000. Creatinine is 0.2, estimated GFR is greater than 60. Procalcitonin level is 0.17. Blood cultures have shown a Staph hominis. However, repeat blood cultures have shown no growth after 48 hours. Another set of blood cultures were done this morning. No imaging reports today, but a transesophageal echocardiogram done yesterday shows no evidence of valvular vegetation or intracardiac thrombus. ASSESSMENT AND PLAN: Ms. Rich is being treated for a Staph hominis bacteremia. Today is day 2 of her treatment based on her sterile blood cultures. She is receiving vancomycin which we will continue at this time. She has also been on cefepime for the possibility of pneumonia. However, her procalcitonin level is low at 0.17, which makes it unlikely that she has respiratory tract infection. We will go ahead and check a chest x-ray today. If that looks clear, we should be able to stop the cefepime and continue her on vancomycin as a single agent for her bacteremia. These plans have been discussed with and recommended by Dr. White. COMORBIDITIES: For Ms. Rich include morbid obesity, atrial fibrillation, congestive heart failure, sleep apnea, and history of stroke with hemiplegia making the patient bed-bound. Dictated by OG Justin for Car White MD cc: Car White MD [facility]
--- NOTE | 2019-04-01 03:45 | PROGRESS NOTE ---
DATE: 03/31/2019 SUBJECTIVE: The patient is resting in bed. No acute events noted overnight. The patient has been afebrile for the last several days. OBJECTIVE: Vital Signs: Temperature 97.7 degrees, blood pressure 121/85, heart rate 83, respirations 20, O2 saturation 99% on room air. General: This is a chronically ill-appearing, elderly female lying in bed in no acute distress. Heart: S1, S2 normal. Regular rate and rhythm. Lungs: Equal air entry bilaterally. No wheezing. No rales. No rhonchi. Abdomen: Positive bowel sounds. Soft, nontender, obese. Extremities: Trace pedal edema bilaterally. Neurologic: The patient is nonverbal and has hemiparesis. LABS: White blood cell count 6.5, hemoglobin 9.1, hematocrit 30, platelets 316,000. Sodium 137, potassium 4.7, chloride 100, CO2 29, BUN 8, creatinine 0.2, glucose 115, magnesium 1.7. ASSESSMENT AND PLAN: 1. Bacteremia, secondary to coagulase-negative Staphylococcus. Repeat blood cultures were drawn today. Continue with antibiotic therapy as directed by Dr. White. 2. Pneumonia, improved on today's chest x-ray. Continue with antibiotic therapy. 3. Atrial fibrillation. Continue on digoxin, Cardizem, and Eliquis. 4. Morbid obesity. Aware. 5. Stage II sacral decubitus ulceration. Continue with wound care. 6. History of multiple cerebrovascular accidents with hemiplegia. Aware. 7. Nutrition. Continue with percutaneous endoscopic gastrostomy tube feeds. 8. Deep vein thrombosis prophylaxis. The patient is on Eliquis. 9. Disposition. The patient is stable for transfer to [facility]. cc: Cassie Moise MD
[2019-04-01] MEDS: MAXIPIME 2 GM in NS 100 ML IV SCH (04:51)
[2019-04-01] MEDS: HUMULIN R SUBQ SCH ×4 (06:13→20:55)
[2019-04-01] MEDS: CARDIZEM GT SCH ×3 (08:02→20:38)
[2019-04-01] MEDS: LANOXIN GT SCH (08:02)
[2019-04-01] MEDS: COLACE LIQUID GT SCH ×2 (08:03→20:38)
[2019-04-01] MEDS: SANTYL OINT TOP SCH (08:03)
[2019-04-01] MEDS: CULTURELLE FOR KIDS GT SCH (08:03)
[2019-04-01] MEDS: ELIQUIS GT SCH ×2 (08:03→20:38)
[2019-04-01] MEDS: VANCOMYCIN 2 GM in NS 500 ML IV SCH (08:03)
[2019-04-01 08:44] LABS: BASO# 0.02 X1000 (0.0-0.2); BASO% 0.3 % (0.0-0.8); EOS# 0.15 X1000 (0.0-0.7); HEMATOCRIT 30.3 % (37.0-47.0); IMM GRAN# 0.07 X1000 (0.0-0.04); IMM GRAN% 0.9 % (0.0-0.5); LYMPH# 1.76 X1000 (1.2-3.4); LYMPH% 23.7 % (20.5-51.1); MCHC 29.7 g/dL (33-37); MONO# 0.65 X1000 (0.11-0.59); MONO% 8.7 % (1.7-9.3); MPV 9.6 FL (7.4-10.4); NEUT# 4.78 X1000 (1.4-6.5); NEUT% 64.4 % (42.2-75.2); PLT 315 X1000 (130-400); RDW 16.4 % (11.5-14.5); WBC 7.43 X1000 (4.8-10.8)
[2019-04-01 09:01] LABS: AGAP 7; BUN 10 mg/dL (8-22); CALCIUM 9.1 mg/dL (8.8-10.2); CHLORIDE 98 mmol/L (98-107); COSMO 272; CREATININE 0.2 mg/dL (0.5-0.9); ESTIMATED GFR > 60; GLUCOSE 117 mg/dL (70-104); MAGNESIUM 1.7 mg/dL (1.5-2.7); PHOSPHORUS 3.5 mg/dL (2.7-4.5); POTASSIUM 4.3 mmol/L (3.5-5.1); SODIUM 136 mmol/L (136-145); TCO2 31 mmol/L (25-35)
[2019-04-01 09:30] LABS: URINE SOURCE CATH
[2019-04-01 09:35] LABS: BILIRUBIN URINE NEGATIVE (NEGATIVE); BLOOD URINE NEGATIVE (NEGATIVE); COLOR YELLOW; GLUCOSE URINE NEGATIVE (NEGATIVE); KETONE URINE NEGATIVE (NEGATIVE); LEUKOCYTES URINE TRACE (NEGATIVE); NITRITE URINE NEGATIVE (NEGATIVE); PH URINE 6.5; PROTEIN URINE NEGATIVE (NEGATIVE); SP GRAVITY URINE 1.011; TURBIDITY URINE CLEAR (CLEAR); UROBILINOGEN URINE NORMAL (NORMAL)
[2019-04-01 09:49] LABS: UR EPITHELIAL CELLS <10 /HPF (<10); URINE BACTERIA NEGATIVE /HPF; URINE RBC <10 /HPF (<10); URINE WBC <10 /HPF (<10)
[2019-04-01 09:53] LABS: URINE CASTS NONE SEEN; URINE CRYSTALS NONE SEEN; URINE SMALL ROUND CELLS NONE SEEN; URINE YEAST PRESENT
--- NOTE | 2019-04-01 10:11 | PROGRESS NOTE ---
DATE: 04/01/2019 SUBJECTIVE: The patient is resting comfortably. No acute events noted overnight. OBJECTIVE: Vital Signs: Temperature 98 degrees, blood pressure 127/83, heart rate 87, respirations 22, O2 saturation is 100% on room air. General: This is a morbidly obese female, lying in bed in no acute distress. Heart: S1, S2 normal. Regular rate and rhythm. Lungs: Equal air entry bilaterally. No wheezing. No rales. Abdomen: Positive bowel sounds. Soft, nontender, nondistended. Extremities: There is 1+ edema in the lower extremities. Neurologic: The patient is nonverbal with hemiparesis. LABORATORY DATA: White blood cell count 7.4, hemoglobin 9, hematocrit 30, platelets 315,000. ASSESSMENT AND PLAN: 1. Bacteremia secondary to coagulase-negative Staphylococcus. Continue with antibiotic therapy as directed by Dr. White. 2. Pneumonia. Continue with antibiotic therapy. 3. Atrial fibrillation. Continue on digoxin, Cardizem, and Eliquis. 4. Stage II sacral decubitus ulceration. Continue with wound care. 5. Morbid obesity. Aware. 6. History of multiple cerebrovascular accidents with hemiplegia. Aware. 7. Nutrition. Continue with percutaneous endoscopic gastrostomy tube feeds. 8. Deep vein thrombosis prophylaxis. The patient is currently on Eliquis. 9. Disposition. The patient is stable for transfer to [facility]. cc: Cassie Moise MD
[2019-04-02] MEDS: VANCOMYCIN 2 GM in NS 500 ML IV SCH ×2 (02:00→22:02)
[2019-04-02] MEDS: HUMULIN R SUBQ SCH ×4 (06:03→22:02)
[2019-04-02 06:06] LABS: BASO# 0.02 X1000 (0.0-0.2); BASO% 0.2 % (0.0-0.8); EOS# 0.16 X1000 (0.0-0.7); EOS% 1.6 % (0.0-10.0); HEMATOCRIT 33.7 % (37.0-47.0); HEMOGLOBIN 10.1 g/dL (12.0-16.0); IMM GRAN# 0.06 X1000 (0.0-0.04); IMM GRAN% 0.6 % (0.0-0.5); LYMPH# 2.18 X1000 (1.2-3.4); LYMPH% 21.8 % (20.5-51.1); MCH 30.1 PG (27-31); MCV 100.6 FL (81-99); MONO# 0.65 X1000 (0.11-0.59); MONO% 6.5 % (1.7-9.3); MPV 9.5 FL (7.4-10.4); NEUT# 6.91 X1000 (1.4-6.5); NEUT% 69.3 % (42.2-75.2); PLT 367 X1000 (130-400); RBC 3.35 XMIL (4.2-5.4); RDW 16.3 % (11.5-14.5); WBC 9.98 X1000 (4.8-10.8)
[2019-04-02 06:38] LABS: AGAP 9; BUN 10 mg/dL (8-22); CALCIUM 9.4 mg/dL (8.8-10.2); CHLORIDE 98 mmol/L (98-107); COSMO 274; CREATININE 0.3 mg/dL (0.5-0.9); ESTIMATED GFR > 60; GLUCOSE 113 mg/dL (70-104); MAGNESIUM 1.7 mg/dL (1.5-2.7); PHOSPHORUS 3.5 mg/dL (2.7-4.5); POTASSIUM 4.5 mmol/L (3.5-5.1); SODIUM 137 mmol/L (136-145); TCO2 30 mmol/L (25-35)
[2019-04-02] MEDS: COLACE LIQUID GT SCH ×2 (09:06→23:34)
[2019-04-02] MEDS: ELIQUIS GT SCH ×2 (09:06→22:02)
[2019-04-02] MEDS: TYLENOL PEG PRN (09:06)
[2019-04-02] MEDS: LANOXIN GT SCH (09:06)
[2019-04-02] MEDS: CARDIZEM GT SCH ×3 (09:06→22:02)
[2019-04-02] MEDS: CULTURELLE FOR KIDS GT SCH (09:06)
[2019-04-02] MEDS: SANTYL OINT TOP SCH (09:11)
--- NOTE | 2019-04-02 22:42 | INFECTIOUS DISEASE PROGRESS NO ---
DATE: 04/02/2019 PRESENT ILLNESS: Ms. Rich has a Coag-negative Staphylococcus bacteremia. At one point, there was also a pneumonia, and she does have a decubitus ulcer to her sacrum. MEDICATIONS: Based on her sterile blood cultures, today is day 4 of treatment with IV vancomycin per pharmacy dosing for her bacteremia. OBJECTIVE: Vital Signs: Temperature is 97.6 degrees, pulse rate 78, respiratory rate 12, blood pressure 136/95, O2 saturation is 98% on room air. General: This is a morbidly obese, chronically ill-appearing, middle-aged female. She is lying in the bed currently in no acute distress. HEENT: Conjunctivae are pale. Oral mucous membranes are pink and moist. Respiratory: Lung sounds are diminished bilaterally. No work of breathing is noted. Cardiovascular: Irregularly irregular with atrial fibrillation on the monitor. Abdomen: Soft, obese and nontender with a PEG tube in place. That site is without edema, erythema or drainage. She does have tube feeding infusing. Integumentary: Skin is warm and dry with a decubitus ulcer to the sacrum, which is not visualized at this time. Neurologic: She is drowsy and lethargic but arousable and did make eye contact but does not follow commands. LABORATORY AND X-RAY: Today her white count is 9.98, hemoglobin 10.1, platelet count 367,000. Creatinine is 0.3. Estimated GFR is greater than 60. Yesterday urinalysis showed no bacteria and less than 10 WBCs. Urine culture so far shows no growth on the preliminary report, and she has 2 sets of blood cultures which both show no growth after 48 hours. Previously she did have a Staphylococcus hominis, which grew in her blood. No imaging reports today. ASSESSMENT AND PLAN: Ms. Rich has a Coag-negative staph bacteremia and is being treated with vancomycin as a single agent, which we will continue. At one point there was a pneumonia; however, her procalcitonin is now low and chest x-ray looked clear at last check with resolution of the left lung base opacity, so her cefepime was previously discontinued. For now, we will continue the vancomycin as ordered, which she will need for 14 days, with day 1 being March 29, which was the first set of sterile blood cultures. Previously a JENNIFER was performed and showed no evidence of valvular vegetation. These plans have been discussed with and recommended by Dr. White. COMORBIDITIES: For Ms. Rich include morbid obesity, stroke with hemiplegia, PEG tube requiring tube feedings for nutrition, atrial fibrillation, congestive heart failure and in sleep apnea. Dictated by OG Justin for Car White MD cc: Car White MD [facility]
--- NOTE | 2019-04-02 23:22 | PROGRESS NOTE ---
DATE: 04/02/2019 SUBJECTIVE: The patient is resting comfortably in bed. She currently has normal oxygen saturations on room air. OBJECTIVE: Vital signs: Temperature 97.6 degrees, blood pressure 136/95, heart rate 75, respirations 12, O2 saturation 98% on room air.General: This is a morbidly obese, elderly female lying in bed in no acute distress. Heart: S1, S2 normal. Regular rate and rhythm. Lungs: Equal air entry bilaterally. No wheezing. No rales. Abdomen: Positive bowel sounds. Soft, nontender, nondistended. Extremities: Edema 1+ in the extremities. Neurologic: The patient is awake, but nonverbal. LABORATORY DATA: White blood cell count 9.9, hemoglobin 10, hematocrit 33, platelets 367. Sodium 137, potassium 4.5, chloride 98, CO2 is 30, BUN 10, creatinine 0.3, glucose 113. ASSESSMENT AND PLAN: 1. Bacteremia secondary to coagulase-negative Staphylococcus. So far, the last 2 sets of blood cultures remain negative. Continue with antibiotic therapy as directed by Dr. White. 2. Pneumonia. Continue with antibiotic therapy. 3. Atrial fibrillation. The patient is rate-controlled. Continue on digoxin, Cardizem and Eliquis. 4. Morbid obesity. Aware. 5. Stage II sacral decubitus ulceration. Continue with wound care. 6. History of multiple cerebrovascular accidents with hemiplegia. Aware. 7. Nutrition. Continue with tube feeds. 8. Deep vein thrombosis prophylaxis. Continue on Eliquis. cc: Cassie Moise MD
--- NOTE | 2019-04-03 01:55 | PULMONOLOGY PROGRESS NOTE ---
DATE: 04/02/2019 SUBJECTIVE: The patient opens her eyes when I come into the room. She does not follow commands. She has no increased work of breathing. OBJECTIVE: Vital Signs: The patient has been afebrile for the last 24 hours. Blood pressure 143/92, heart rate 99, respiratory rate 14, oxygen saturation 95%. HEENT: Pupils are equal and reactive. Oropharynx appears clear. Neck: Supple. Chest: Reveals occasional rhonchi bilaterally. Cardiac: S1, S2. Abdomen: Soft. Extremities: Without edema. LABORATORIES: White blood count 9.98, hemoglobin 10.1, platelet count 367,000. IMPRESSION: A 53-year-old bed-bound patient with: 1. Left basilar pneumonia which continues to improve. 2. Decubitus ulcer. 3. Staphylococcus hominis bacteremia. PLAN: 1. Continue bronchial hygiene with levalbuterol. 2. Continue antibiotics per Infectious Disease. 3. Anticipate chest x-ray on Friday morning. cc: Ranjith Johnson MD
[2019-04-03 06:55] LABS: BASO# 0.03 X1000 (0.0-0.2); BASO% 0.3 % (0.0-0.8); EOS# 0.16 X1000 (0.0-0.7); EOS% 1.4 % (0.0-10.0); HEMATOCRIT 31.7 % (37.0-47.0); HEMOGLOBIN 9.4 g/dL (12.0-16.0); IMM GRAN# 0.05 X1000 (0.0-0.04); IMM GRAN% 0.5 % (0.0-0.5); LYMPH# 2.35 X1000 (1.2-3.4); LYMPH% 21.2 % (20.5-51.1); MCH 30.1 PG (27-31); MCHC 29.7 g/dL (33-37); MCV 101.6 FL (81-99); MONO# 0.71 X1000 (0.11-0.59); MONO% 6.4 % (1.7-9.3); MPV 9.5 FL (7.4-10.4); NEUT# 7.77 X1000 (1.4-6.5); NEUT% 70.2 % (42.2-75.2); PLT 366 X1000 (130-400); RBC 3.12 XMIL (4.2-5.4); RDW 16.4 % (11.5-14.5); WBC 11.07 X1000 (4.8-10.8)
[2019-04-03] MEDS: HUMULIN R SUBQ SCH ×4 (07:18→22:18)
[2019-04-03 07:23] LABS: AGAP 12; BUN 10 mg/dL (8-22); CALCIUM 8.9 mg/dL (8.8-10.2); CHLORIDE 95 mmol/L (98-107); COSMO 270; CREATININE 0.3 mg/dL (0.5-0.9); ESTIMATED GFR > 60; GLUCOSE 112 mg/dL (70-104); MAGNESIUM 1.7 mg/dL (1.5-2.7); PHOSPHORUS 3.3 mg/dL (2.7-4.5); POTASSIUM 4.3 mmol/L (3.5-5.1); SODIUM 135 mmol/L (136-145); TCO2 28 mmol/L (25-35)
[2019-04-03] MEDS: COLACE LIQUID GT SCH ×2 (08:44→22:17)
[2019-04-03] MEDS: CARDIZEM GT SCH ×3 (08:44→22:17)
[2019-04-03] MEDS: ELIQUIS GT SCH ×2 (08:44→22:17)
[2019-04-03] MEDS: SANTYL OINT TOP SCH (09:53)
[2019-04-03] MEDS: CULTURELLE FOR KIDS GT SCH (09:53)
[2019-04-03] MEDS: LANOXIN GT SCH (09:53)
[2019-04-03] MEDS: VANCOMYCIN 2 GM in NS 500 ML IV SCH (14:33)
[2019-04-03] MEDS: XOPENEX NEB INH PRN (16:42)
[2019-04-03] MEDS: ATROVENT NEB INH PRN (16:42)
[2019-04-03] MEDS ORDERED: CALMOSEPTINE OINTMENT TOP PRN (17:22)
--- NOTE | 2019-04-03 22:20 | PROGRESS NOTE ---
DATE: 04/03/2019 SUBJECTIVE: The patient is resting comfortably in bed. She is nonverbal. No acute events noted overnight. OBJECTIVE: Vital Signs: Temperature is 99.4 degrees, blood pressure 123/77, heart rate 106, respirations 26, O2 saturation 93% on room air. General: This is a morbidly obese female lying in bed in no acute distress. Heart: S1, S2 normal. Tachycardic. Lungs: Equal air entry bilaterally. No wheezing. No rales. No rhonchi. Abdomen: Positive bowel sounds. Soft, obese. Extremities: Trace edema bilaterally. Neurologic: The patient is nonverbal. LABS: White blood cell count 11, hemoglobin 9.4, hematocrit 31, platelets 366,000. Sodium 135, potassium 4.3, chloride 95, CO2 28, BUN 10, creatinine 0.3, glucose 112. ASSESSMENT AND PLAN: 1. Bacteremia secondary to coagulase-negative Staphylococcus. Continue with antibiotic therapy as directed by Dr. White. Repeat blood cultures remain negative so far. 2. Pneumonia. Continue with pulmonary toiletry and antibiotic therapy. 3. Morbid obesity. Aware. 4. History of multiple cerebrovascular accidents with hemiplegia. Aware. 5. Stage II sacral decubitus ulcer. Continue with wound care. 6. Atrial fibrillation. Continue on digoxin, Cardizem and Eliquis. 7. Morbid obesity. Aware. 8. Nutrition. Continue with tube feeds. 9. Deep vein thrombosis prophylaxis. Continue on Eliquis. cc: Cassie Moise MD MTDD
--- NOTE | 2019-04-04 00:36 | PULMONOLOGY PROGRESS NOTE ---
DATE: 04/03/2019 SUBJECTIVE: The patient is awake. She will not follow commands. OBJECTIVE: Vital Signs: The patient has been afebrile for the last 24 hours. Blood pressure 126/76, heart rate 104, respiratory rate 16, oxygen saturation 95% on room air. HEENT: Pupils are equal and reactive. Oropharynx appears clear. Neck: Supple. Chest: Reveals decreased breath sounds left base. Cardiac: Normal S1, normal S2. Abdomen: Soft and obese. Extremities: Reveal 1+ peripheral edema. LABORATORIES: White blood count 11,000, hemoglobin 9.4, platelet count 366,000. No new chest x- ray. No new microbiology data. IMPRESSION: A 53-year-old bed-bound long-term patient with: 1. Left basilar pneumonia. 2. Staphylococcus hominis bacteremia. 3. Decubitus ulcer. PLAN: 1. Continue bronchial hygiene. 2. Continue current antibiotic regimen. 3. Follow up chest x-ray tomorrow. cc: Ranjith Johnson MD
[2019-04-04 06:39] LABS: BASO# 0.03 X1000 (0.0-0.2); BASO% 0.3 % (0.0-0.8); EOS# 0.12 X1000 (0.0-0.7); EOS% 1.2 % (0.0-10.0); HEMATOCRIT 29.9 % (37.0-47.0); IMM GRAN# 0.05 X1000 (0.0-0.04); IMM GRAN% 0.5 % (0.0-0.5); LYMPH# 1.97 X1000 (1.2-3.4); LYMPH% 19.3 % (20.5-51.1); MCH 30.6 PG (27-31); MCHC 30.1 g/dL (33-37); MCV 101.7 FL (81-99); MONO% 7.8 % (1.7-9.3); MPV 9.6 FL (7.4-10.4); NEUT# 7.25 X1000 (1.4-6.5); NEUT% 70.9 % (42.2-75.2); PLT 321 X1000 (130-400); RBC 2.94 XMIL (4.2-5.4); RDW 16.3 % (11.5-14.5); WBC 10.22 X1000 (4.8-10.8)
[2019-04-04 07:00] LABS: AGAP 8; BUN 10 mg/dL (8-22); CALCIUM 9.2 mg/dL (8.8-10.2); CHLORIDE 99 mmol/L (98-107); COSMO 274; CREATININE 0.3 mg/dL (0.5-0.9); ESTIMATED GFR > 60; GLUCOSE 110 mg/dL (70-104); MAGNESIUM 1.7 mg/dL (1.5-2.7); PHOSPHORUS 3.5 mg/dL (2.7-4.5); POTASSIUM 4.3 mmol/L (3.5-5.1); SODIUM 137 mmol/L (136-145); TCO2 30 mmol/L (25-35)
[2019-04-04] MEDS: HUMULIN R SUBQ SCH ×4 (07:03→21:42)
--- NOTE | 2019-04-04 07:23 | Diag Imaging Result Doc PS360 ---
EXAM: CHEST-PORTABLE 04/04/2019 HISTORY: abnormal exam TECHNIQUE: AP portable semiupright at 0525. COMMENT: There is a right internal jugular central venous catheter with its tip just above the right atrium. Compared to 03/31/2019 the opacification of the costophrenic angle on the right has apparently cleared. There is also less apparent retrocardiac opacity on the left. IMPRESSION: No evidence of acute disease. Electronically signed by Julio Cesar Guerrero 04/04/2019 7:21 AM
[2019-04-04] MEDS ORDERED: MAGNESIUM SULFATE 2 GM/S.W.I. 2 GM/50 ML IVPB IV ONE (07:44)
[2019-04-04] MEDS: CULTURELLE FOR KIDS GT SCH (09:09)
[2019-04-04] MEDS: LANOXIN GT SCH (09:09)
[2019-04-04] MEDS: VANCOMYCIN 2 GM in NS 500 ML IV SCH (09:09)
[2019-04-04] MEDS: CARDIZEM GT SCH ×3 (09:10→21:41)
[2019-04-04] MEDS: ELIQUIS GT SCH ×2 (09:10→21:41)
[2019-04-04] MEDS: COLACE LIQUID GT SCH ×2 (09:10→21:41)
[2019-04-04] MEDS: SANTYL OINT TOP SCH (10:12)
[2019-04-04] MEDS: ATROVENT NEB INH PRN ×2 (11:18→16:09)
[2019-04-04] MEDS: XOPENEX NEB INH PRN ×2 (11:18→16:09)
--- NOTE | 2019-04-04 20:35 | PROGRESS NOTE ---
DATE: 04/04/2019 SUBJECTIVE: This is a morbidly obese female lying in bed in no acute distress. OBJECTIVE: Vital Signs: Temperature 98.3 degrees, blood pressure 117/64, heart rate 110, respirations 22, O2 saturations 100% on room air. General: This is a morbidly obese female lying in bed in no acute distress. Heart: S1, S2 normal. Tachycardic. Lungs: Equal air entry bilaterally. No wheezing. No rales. Abdomen: Positive bowel sounds. Soft, obese, nontender. Extremities: No edema. No cyanosis. Neurologic: The patient is nonverbal. She does have hemiplegia. LABS: White blood cell count 10, hemoglobin 9, hematocrit 29, platelets 321,000. Sodium 137, potassium 4.3, chloride 99, CO2 30, BUN 10, creatinine 0.3, glucose 110. Chest x-ray: No acute disease. ASSESSMENT AND PLAN: 1. Bacteremia secondary to coagulase-negative Staphylococcus. The patient is currently on vancomycin. So far, the repeat blood cultures remain negative. 2. Pneumonia. Resolved. 3. History of multiple cerebrovascular accidents with hemiplegia. Aware. 4. Morbid obesity. Aware. 5. Stage II sacral decubitus ulcer. Continue with wound care. 6. Atrial fibrillation. Continue on Cardizem, digoxin and Eliquis. 7. Nutrition. Continue with tube feeds. 8. Deep vein thrombosis prophylaxis. The patient is on Eliquis. 9. Disposition. [facility] is working on custodial placement for the patient. cc: Cassie Moise MD
--- NOTE | 2019-04-04 21:23 | EKG Report ---
Test Performed on : 04/04/2019 5:56:45 PM Test Reason : tachycardia Blood Pressure : / mmHG Vent. Rate : 115 BPM Atrial Rate : 094 BPM P-R Int : 000 ms QRS Dur : 074 ms QT Int : 300 ms P-R-T Axes : 000 -21 052 degrees QTc Int : 415 ms Atrial fibrillation. with rapid ventricular response. Inferior infarct , age undetermined Anterolateral infarct , age undetermined Abnormal ECG When compared with ECG of 27-MAR-2019 08:50, Anterior infarct is now present Anterolateral infarct is now present Inferior infarct is now present Confirmed by Aaliyah BELTRAN, Kiran ([id number]) on 04/05/2019 8:19:59 AM
--- NOTE | 2019-04-05 01:21 | PULMONOLOGY PROGRESS NOTE ---
DATE: 04/04/2019 SUBJECTIVE: The patient is awake and alert. She does not follow commands. OBJECTIVE: Vital Signs: The patient has been afebrile for the last 24 hours. Blood pressure 144/80, heart rate 107, respiratory rate 18, oxygen saturation 96% on room air. HEENT: Pupils are equal and reactive. Oropharynx appears clear. Neck: Supple. Chest: Reveals good air entry without wheezing or rhonchi. Cardiac: S1-S2. Abdomen: Obese and soft. Extremities: Reveal trace edema. LABORATORIES: Chest x-ray reveals clearing of the opacification at the right costophrenic angle along with near clearing of the left retrocardiac opacity. White blood count 10.2, hemoglobin 9.0, platelet count 321,000. Sodium 137, potassium 4.3, chloride 99, bicarbonate 30, BUN 10, creatinine 0.3. IMPRESSION: A 53-year-old bed-bound prison patient with: 1. Pneumonia which has almost cleared. 2. Decubitus ulcer. 3. Staphylococcus hominis bacteremia. RECOMMENDATION: 1. Continue bronchial hygiene. 2. Antibiotics per Infectious Disease. 3. From a pulmonary standpoint, patient can be transferred back to the prison at the discretion of Infectious Disease. cc: Ranjith Johnson MD
[2019-04-05] MEDS: VANCOMYCIN 2 GM in NS 500 ML IV SCH (02:15)
[2019-04-05 05:46] LABS: BASO# 0.05 X1000 (0.0-0.2); BASO% 0.4 % (0.0-0.8); EOS# 0.13 X1000 (0.0-0.7); EOS% 1.1 % (0.0-10.0); HEMATOCRIT 31.1 % (37.0-47.0); HEMOGLOBIN 9.4 g/dL (12.0-16.0); IMM GRAN# 0.04 X1000 (0.0-0.04); IMM GRAN% 0.3 % (0.0-0.5); LYMPH# 1.79 X1000 (1.2-3.4); LYMPH% 14.8 % (20.5-51.1); MCH 30.5 PG (27-31); MCHC 30.2 g/dL (33-37); MONO# 0.79 X1000 (0.11-0.59); MONO% 6.5 % (1.7-9.3); MPV 9.7 FL (7.4-10.4); NEUT% 76.9 % (42.2-75.2); PLT 338 X1000 (130-400); RBC 3.08 XMIL (4.2-5.4); RDW 15.8 % (11.5-14.5)
[2019-04-05 06:05] LABS: AGAP 9; BUN 10 mg/dL (8-22); CALCIUM 8.9 mg/dL (8.8-10.2); CHLORIDE 96 mmol/L (98-107); COSMO 268; CREATININE 0.3 mg/dL (0.5-0.9); ESTIMATED GFR > 60; GLUCOSE 119 mg/dL (70-104); MAGNESIUM 1.7 mg/dL (1.5-2.7); PHOSPHORUS 3.1 mg/dL (2.7-4.5); POTASSIUM 4.1 mmol/L (3.5-5.1); SODIUM 134 mmol/L (136-145); TCO2 29 mmol/L (25-35)
[2019-04-05] MEDS: HUMULIN R SUBQ SCH ×2 (06:33→10:59)
[2019-04-05] MEDS: ELIQUIS GT SCH (08:55)
[2019-04-05] MEDS: LANOXIN GT SCH (08:55)
[2019-04-05] MEDS: CARDIZEM GT SCH ×2 (08:55→15:17)
[2019-04-05] MEDS: COLACE LIQUID GT SCH (08:55)
[2019-04-05] MEDS: CULTURELLE FOR KIDS GT SCH (08:55)
[2019-04-05] MEDS: SANTYL OINT TOP SCH (08:56)
[2019-04-05 10:48] LABS: INR 1.17; PROTIME 15.1 Seconds (11.0-16.0)
[2019-04-05 11:52] VITALS: BP 125/87
--- NOTE | 2019-04-05 12:29 | DISCHARGE SUMMARY ---
ADMISSION DATE: 03/23/2019 DISCHARGE DATE: 04/05/2019 FINAL DISCHARGE DIAGNOSES: 1. Sepsis secondary to coagulase-negative Staphylococcus bacteremia. 2. Pneumonia. 3. Morbid obesity. 4. History of multiple cerebrovascular accidents with hemiplegia. 5. Hypertension. 6. Paroxysmal atrial fibrillation on chronic anticoagulation. 7. Stage II sacral decubitus ulcer. 8. History of intracranial hemorrhage in September of 2018. CONSULTATIONS: 1. Infectious Disease consultation with Dr. White. 2. Pulmonary consultation with Dr. John. 3. Cardiology consultation with Dr. Barbosa. IMAGIN. CT of the chest, abdomen and pelvis performed on 03/23/2019 that revealed bibasilar atelectasis and pneumonia in the right lower lobe. 2. CT of the abdomen and pelvis performed on 03/26/2019 that revealed mild anasarca. Right pleural effusion. Bibasilar atelectasis versus pneumonia. 3. WBC nuclear scan revealed mild diffuse increased uptake in both lungs. PROCEDURES: 1. JENNIFER performed on 03/30/2019 that revealed an EF of 60%. Normal LV dimension. No intracardiac thrombus. No pericardial effusion. HOSPITAL COURSE: Ms Rich is a 53-year-old female with a history of multiple cerebrovascular accidents with hemiplegia, who is bed bound, who was brought to the hospital septic. It was thought that the source of the sepsis was a PICC line that was in the patient's right arm. The patient also had a sacral decubitus ulceration. Blood cultures were obtained. The patient was started on broad-spectrum antibiotics and admitted to the ICU. On admission, the patient was noted to be in atrial fibrillation with RVR that was likely secondary to the underlying sepsis. Infectious Disease and Cardiology were consulted, as well as Pulmonary Medicine. The chest x-ray did also reveal a right lower lobe pneumonia that was improving. Ultimately, the blood cultures grew out coagulase-negative Staphylococcus. The patient's antibiotic regimen was adjusted and vancomycin was continued. There was concern that this likely represented endocarditis due to a 2nd set of blood cultures coming back positive for coagulase-negative Staphylococcus. The patient underwent a JENNIFER on 03/30/2019 that was noted to be negative for intracardiac thrombus. The patient was treated with antibiotics. A repeat chest x-ray was done on 04/04/2019 that showed no acute disease, and so it was thought that the pneumonia was cleared. At the time of this dictation, so far 2 subsequent sets of blood cultures remain negative. The patient will need to complete 1 more week of IV vancomycin as per Dr. White. At this time, the patient is medically stable [facility] to [facility] the remainder of her antibiotic therapy. On the day of discharge, the patient was noted to have a white blood cell count of 7.2, hemoglobin of 9.3, hematocrit of 30, BUN of 13 with a creatinine of 0.2. DISCHARGE MEDICATIONS: 1. Vancomycin 2 g IV every 18 hours for a total of 7 days. 2. Cardizem 30 mg via the G-tube 3 times a day. 3. Atrovent 0.5 mg inhaled every 6 hours p.r.n. for shortness of breath. 4. Lipitor 40 mg via G-tube at bedtime. 5. Lactobacillus 1 capsule via G-tube daily. 6. Eliquis 2.5 mg via the G-tube twice a day. 7. Colace 100 mg via the G-tube twice a day. 8. Digoxin 125 mcg via the G-tube daily. 9. Lasix 20 mg via the G-tube daily. 10. Dulcolax 1 tablet via the G-tube every 6 hours p.r.n. for constipation. DISCHARGE DIET: 1. Glucerna 1.5 at 50 mL an hour via the G-tube with 912 mL of free water with 360 mL of free water flush via the PEG. DISCHARGE INSTRUCTIONS: [facility] today. cc: Cassie Moise MD
[2019-04-05] MEDS ORDERED: NS 250 ML ONE (12:55)
--- NOTE | 2019-04-05 13:51 | INFECTIOUS DISEASE PROGRESS NO ---
DATE: 04/05/2019 PRESENT ILLNESS: The patient is being treated now for a coagulase-negative staphylococcal bacteremia. MEDICATIONS: The patient is on IV vancomycin per pharmacy dosing. PHYSICAL EXAMINATION: Vital Signs: Temperature is 98.3 degrees, pulse 115, respirations 23, blood pressure 113/73. General: This is a morbidly obese, chronically ill, middle-aged female. She is lying in her bed and she does track with her eyes. Head/eyes/ears/nose/throat: She does not have any drainage coming from her nose or ears. As mentioned above, she does track with her eyes. I could not get a good examination of her mouth. Neck: The patient has a right-sided internal jugular vein catheter in place. The site is not purulent or bleeding. Lungs: Clear to auscultation. Cardiovascular: Heart rate is irregular. Abdomen: Soft and not tender. There is a PEG tube in place. The site is not purulent or bleeding. Neurologic: As mentioned above, the patient is somewhat lethargic. She does track with her eyes, but she did not move her arms or legs when I asked her to. LAB AND X-RAY: There is no new radiographic study. CBC shows a white count of 12,100, hemoglobin 9.4, platelet count 338,000. Creatinine is 0.3. GFR is greater than 60. ASSESSMENT AND PLAN: The patient is being discharged to the prison today. She will require 7 more days of vancomycin to treat her staphylococcal bacteremia. The orders for the prison are as follows: Vancomycin 2500 mg intravenous every 24 hours, complete blood count with a differential, a creatinine and a vancomycin trough level were to be drawn every Friday, a creatinine also is to be drawn every Friday. The antibiotic treatment and the lab tests are for one week. After the last dose of vancomycin, the patient's PICC which is going to be put in her arm today is to be removed. COMORBIDITIES: The patient is morbidly obese. She had a stroke with a resulting hemiplegia. She has a PEG tube in her abdomen. She also has atrial fibrillation, congestive heart failure, and sleep apnea. cc: Car White MD
--- NOTE | 2019-04-05 15:25 | Diag Imaging Result Doc PS360 ---
CHEST-PORTABLE - 04/05/2019 INDICATION: PICC placement COMPARISON: 04/04/2019 FINDINGS: There is a right PICC line in good position. The catheter tip is at the region of the confluence of the brachiocephalic veins. Stable right internal jugular central line has well. Lung volumes are severely low. There are patchy bibasilar infiltrates. There is significant cardiomegaly. IMPRESSION: Good right PICC line placement. Electronically signed by Jimmy Cote 04/05/2019 3:22 PM
== END 2019-04-05 16:13 | DRG 314 ==
LOC: SUPCPDRO → ED 08:08 → EDIPHOLD 13:58 → SUATTDRO 13:58 → ICU 03-24 16:40 → 2N 04-01 16:44
PROVIDERS: ATTEND Internal Medicine